=== PATIENT | male | born 1940 | race Caucasian/White ===

== ENCOUNTER 2016-10-29 13:18 | Inpatient (IN) | payer OTHER ==
[2016-10-29] VITALS (14 sets, daily range): BP systolic 135–200; BP diastolic 73–101; PULSE 89–115; TEMP 36.2–37.2; O2SAT 95–100; BMI 32.6
[~2016-10-29] VITALS: Ht 175.3 cm; Wt 101.6 kg
[2016-10-29 14:59] LABS: HEMATOCRIT 20.1 % (42-52); MEAN CELL VOLUME 86.6 fL (80-100); MEAN CORPUSCULAR HEMOGLOBIN 28.9 pg (25-34); MEAN CORPUSCULAR HGB CONC 33.3 g/dl (32-36); MEAN PLATELET VOLUME 10.1 fL (7.4-10.4); PLATELET COUNT 161 K/uL (130-400); RED BLOOD COUNT 2.32 M/uL (4.7-6.1); WHITE BLOOD COUNT 3.51 K/uL (4.8-10.8)
[2016-10-29 15:05] LABS: PARTIAL THROMBOPLASTIN RATIO 1.1; PROTHROMBIN TIME (PATIENT) 11.1 SECONDS (9.0-12.0)
--- NOTE | 2016-10-29 15:05 | DIAGNOSTIC IMAGING REPORT ---
CHEST ONE VIEW PORTABLE CLINICAL HISTORY: Shortness of breath, hematuria. COMPARISON STUDY: No previous studies for comparison. FINDINGS: The cardiac and mediastinal contours are normal. There is no evidence of focal pulmonary consolidation. There is no evidence of failure. No pleural effusions are visualized.[ IMPRESSION: No active disease in the chest. Electronically signed by: Idris Ulloa M.D. 10/29/2016 3:04 PM Dictated Date/Time: 10/29/2016 3:04 PM
[2016-10-29 15:20] LABS: ALB/GLOB RATIO 1.1 (0.9-2); ALT/SGPT 21 U/L (12-78); AST/SGOT 17 U/L (15-37); CALCIUM 7.3 mg/dl (8.5-10.1); CARBON DIOXIDE 6 mmol/L (21-32); CHLORIDE 105 mmol/L (98-107); GLUCOSE 100 mg/dl (70-99); POTASSIUM 5.5 mmol/L (3.5-5.1); SODIUM 135 mmol/L (136-145)
[2016-10-29 15:23] LABS: BASO % 0.3 %; BASO ABS # 0.01 K/uL (0-0.2); COMPLETE YES; ECHINOCYTES 1+; EOS % 0.6 %; IG% 0.6 %; LYMPH % 15.7 %; LYMPH ABS # 0.55 K/uL (1.2-3.4); NEUT % 78.8 %; OVALOCYTES 2+
[2016-10-29 15:29] LABS: ALKALINE PHOSPHATASE 55 U/L (45-117); BLOOD UREA NITROGEN 192 mg/dl (7-18); BUN/CREATININE RATIO 10.7 (10-20); MAGNESIUM 1.8 mg/dl (1.8-2.4)
[2016-10-29] MEDS ORDERED: ALLBUTEROL INH (15:30)
--- NOTE | 2016-10-29 15:57 | EMERGENCY ROOM VISIT NOTE ---
History Report prepared by Jud: Evan Hernandez Under the Supervision of: Dr. Armando De La Cruz M.D. First contact with patient: 14:37 Chief Complaint: SHORTNESS OF BREATH Stated Complaint: SOB, WEAK, NOT EATING, INCREASED BLOOD IN URINE Nursing Triage Summary: Pt has had lack of appetite, feeling short of breath more on exertion over the past few days. Has not seen a phys in years per the brother, pt did not want to come initially to the ER. Also complains of pain bilateral legs - feeling heavy. pt admits that his nose bleeds every once in a while for no reason per pt History of Present Illness The patient is a 76 year old male who presents to the Emergency Room with complaints of severe and worsening shortness of breath starting a few days ago. He has worsening difficulty breathing with exertion. He has symptom relief with rest. He also complains of chills and weakness. He is unsure about a fever. He notes nose bleeds occurring for the past few days. He has been having blood in urine for the past month. He denies any burning with urination. He reports diarrhea occurring for the past few months. He reports a loss of appetite. As per family, he has been losing weight. The patient denies cough, chest pain, nausea, vomiting, or any other complaints. He denies any history of lung disease , myocardial infarction, or history of blood transfusion. He denies any blood thinners. Source of History: patient Onset: a few days ago Position: other (global) Quality: other (shortness of breath) Timing: worsening Modifying Factors (Worsening): exertion Modifying Factors (Relieving): rest Associated Symptoms: + chills, + diarrhea, + weakness, No chest pain, No cough, No nausea, No vomiting Review of Systems See HPI for pertinent positives & negatives. A total of 10 systems reviewed and were otherwise negative. Past Medical & Surgical Medical Problems: (1) No Known Active Medical Problems Family History Patient reports no known family medical history. Social History Smoking Status: Never Smoker Housing Status: lives with family Occupation Status: retired Current/Historical Medications Scheduled [Allbuterol Neb], 1 DOSE INH TODAY Allergies Coded Allergies: No Known Allergies (Unverified , 10/29/16) Physical Exam Vital Signs Date Time Temp Pulse Resp B/P Pulse Ox O2 Delivery O2 Flow Rate FiO2 10/29/16 18:08 36.4 93 16 184/82 97 10/29/16 17:52 36.5 93 18 166/80 99 10/29/16 17:30 85 18 173/88 99 Room Air 10/29/16 15:54 35.6 84 20 169/111 99 Room Air 10/29/16 15:24 85 18 133/80 99 Room Air 10/29/16 15:06 81 10/29/16 14:32 100 Room Air 10/29/16 14:31 100 Room Air 10/29/16 14:24 35.0 85 20 132/71 100 Room Air 10/29/16 13:41 97 Room Air 10/29/16 13:33 119 24 108/66 97 Room Air Physical Exam GENERAL: Patient is in no acute distress. HEENT: No acute trauma, normocephalic atraumatic, mucous membranes moist, no nasal congestion, no scleral icterus. NECK: No stridor, no adenopathy, no meningismus, trachea is midline. LUNGS: Clear to auscultation bilaterally, no wheeze, no rhonchi, breath sounds equal. HEART: Without murmurs gallops or rubs, regular rate and rhythm. ABDOMEN: Soft, nontender, bowel sounds positive, no hernias, no peritonitis. Possible fullness in the area of the bladder, nontender. EXTREMITIES: No cyanosis or edema, full range of motion of all the joints without pain or difficulty, no signs for acute trauma. NEUROLOGIC: Oriented x 3, no acute motor or sensory deficits, no focal weakness. SKIN: Pale. No rash, no jaundice, no diaphoresis. Medical Decision & Procedures ER Provider Diagnostic Interpretation: X ray results and stated below per my interpretation and radiologist interpretation. US results and stated below per my review and radiologist interpretation: RENAL ULTRASOUND HISTORY: renal failure ? Obstructing mass in bladder COMPARISON: None. FINDINGS: Right kidney: 22.3 cm in length. Multiple large cystic areas which appear to communicate suggestive of severe hydronephrosis. This favors a congenital UPJ type obstruction as the ureter does not appear to be dilated. Severe cortical atrophy/thinning. Therefore, this favors chronic hydronephrosis. Left kidney: 23.4 cm in length. Multiple large cystic areas which appear to communicate suggestive of severe hydronephrosis. This favors a congenital UPJ type obstruction as the ureter does not appear to be dilated. Severe cortical atrophy/thinning. Therefore, this favors chronic hydronephrosis. Bladder: A 1.8 cm stone. There is a 4.2 x 3.5 x 3.5 cm masslike area within the bladder. However, this could be due to protrusion of the enlarged prostate gland. IMPRESSION: 1. Multiple large cystic areas within the enlarged kidneys which appear to communicate. Therefore, this favors severe hydronephrosis in the setting of a UPJ type obstruction. There is marked atrophy/thinning of the renal parenchyma suggesting a chronic process. 2. A 4.2 x 3.5 x 3.5 cm masslike area within the bladder. However, this could be due to protrusion of the enlarged prostate gland. Cystoscopy is recommended for further evaluation. 3. A 1.8 cm bladder stone. Electronically signed by: Yayo Baird M.D. 10/29/2016 4:23 PM Dictated Date/Time: 10/29/2016 4:19 PM CHEST ONE VIEW PORTABLE CLINICAL HISTORY: Shortness of breath, hematuria. COMPARISON STUDY: No previous studies for comparison. FINDINGS: The cardiac and mediastinal contours are normal. There is no evidence of focal pulmonary consolidation. There is no evidence of failure. No pleural effusions are visualized.[ IMPRESSION: No active disease in the chest. Electronically signed by: Idris Ulloa M.D. 10/29/2016 3:04 PM Dictated Date/Time: 10/29/2016 3:04 PM Laboratory Results 10/29/16 14:30 Red Blood Count 2.32, Mean Corpuscular Volume 86.6, Mean Corpuscular Hemoglobin 28.9, Mean Corpuscular Hemoglobin Concent 33.3, Mean Platelet Volume 10.1, Neutrophils (%) (Auto) 78.8, Lymphocytes (%) (Auto) 15.7, Monocytes (%) (Auto) 4.0, Eosinophils (%) (Auto) 0.6, Basophils (%) (Auto) 0.3, Neutrophils # (Auto) 2.77, Lymphocytes # (Auto) 0.55, Monocytes # (Auto) 0.14, Eosinophils # (Auto) 0.02, Basophils # (Auto) 0.01 10/29/16 14:30 Test 10/29/16 14:30 10/29/16 14:35 10/29/16 16:35 White Blood Count 3.51 K/uL (4.8-10.8) Red Blood Count 2.32 M/uL (4.7-6.1) Hemoglobin 6.7 g/dL (14.0-18.0) Hematocrit 20.1 % (42-52) Mean Corpuscular Volume 86.6 fL (80-100) Mean Corpuscular Hemoglobin 28.9 pg (25-34) Mean Corpuscular Hemoglobin Concent 33.3 g/dl (32-36) Platelet Count 161 K/uL (130-400) Mean Platelet Volume 10.1 fL (7.4-10.4) Neutrophils (%) (Auto) 78.8 % Lymphocytes (%) (Auto) 15.7 % Monocytes (%) (Auto) 4.0 % Eosinophils (%) (Auto) 0.6 % Basophils (%) (Auto) 0.3 % Neutrophils # (Auto) 2.77 K/uL (1.4-6.5) Lymphocytes # (Auto) 0.55 K/uL (1.2-3.4) Monocytes # (Auto) 0.14 K/uL (0.11-0.59) Eosinophils # (Auto) 0.02 K/uL (0-0.5) Basophils # (Auto) 0.01 K/uL (0-0.2) RDW Standard Deviation 44.8 fL (36.4-46.3) RDW Coefficient of Variation 14.1 % (11.5-14.5) Immature Granulocyte % (Auto) 0.6 % Immature Granulocyte # (Auto) 0.02 K/uL (0.00-0.02) Ovalocytes 2+ Echinocytes 1+ Prothrombin Time 11.1 SECONDS (9.0-12.0) Prothromb Time International Ratio 1.0 (0.9-1.1) Activated Partial Thromboplast Time 29.7 SECONDS (21.0-31.0) Partial Thromboplastin Ratio 1.1 Anion Gap 24.0 mmol/L (3-11) Estimated GFR () 2.6 Estimated GFR (Non- 2.2 BUN/Creatinine Ratio 10.7 (10-20) Calcium Level 7.3 mg/dl (8.5-10.1) Magnesium Level 1.8 mg/dl (1.8-2.4) Total Bilirubin 0.4 mg/dl (0.2-1) Aspartate Amino Transf (AST/SGOT) 17 U/L (15-37) Alanine Aminotransferase (ALT/SGPT) 21 U/L (12-78) Alkaline Phosphatase 55 U/L (45-117) Total Protein 7.8 gm/dl (6.4-8.2) Albumin 4.0 gm/dl (3.4-5.0) Globulin 3.8 gm/dl (2.5-4.0) Albumin/Globulin Ratio 1.1 (0.9-2) Thyroid Stimulating Hormone (TSH) 3.670 uIu/ml (0.300-4.500) Free Thyroxine 0.84 ng/dl (0.80-1.60) Bedside Troponin I 0.030 ng/ml (0-0.045) Urine Color YELLOW Urine Appearance CLEAR (CLEAR) Urine pH 6.0 (4.5-7.5) Urine Specific [place] 1.009 (1.000-1.030) Urine Protein 1+ (NEG) Urine Glucose (UA) TRACE (NEG) Urine Ketones NEG (NEG) Urine Occult Blood 2+ (NEG) Urine Nitrite NEG (NEG) Urine Bilirubin NEG (NEG) Urine Urobilinogen NEG (NEG) Urine Leukocyte Esterase TRACE (NEG) Urine WBC (Auto) 1-5 /hpf (0-5) Urine RBC (Auto) 10-30 /hpf (0-4) Urine Hyaline Casts (Auto) 1-5 /lpf (0-5) Urine Epithelial Cells (Auto) >30 /lpf (0-5) Urine Bacteria (Auto) 1+ (NEG) Urine Renal Epithelial Cells /lpf (0-5) Laboratory results reviewed by me. ECG Indication: SOB/dyspnea Rate (beats per minute): 86 Rhythm: sinus rhythm Findings: no acute ischemic change, no ectopy ED Course 1437: The patient was evaluated in room B02. A complete history and physical exam was performed. 1507: I spoke with Dr. Avila, from [facility]. 1541: Upon reexamination the patient is resting comfortably. I discussed results and treatment plan with the patient. He verbalizes agreement and understanding. The patient will be evaluated for further management. Medical Decision Differential diagnosis includes but is not limited to anemia, renal or bladder malignancy, UTI, abdominal malignancy, electrolyte imbalance, cardiac ischemia, thyroid disorder, UTI. There is no leukocytosis. The patient is markedly anemic with a hemoglobin at around 6. I think the low hemoglobin value explains his weakness and shortness of breath. Renal panel testing shows acute renal failure with an acidosis, CO2 was 6. There was no evidence for hepatitis. Urinalysis shows hematuria with a possible infection, urine culture is pending. Blood cultures are pending. Chest film does not show pneumonia or CHF. EKG showed a sinus rhythm with a first-degree AV block, no acute ischemia. Cardiac enzyme testing times one is not consistent with acute cardiac injury. There was no coagulopathy. The patient was in a euthyroid state. Renal ultrasound shows severe hydronephrosis, some of which was thought chronic. There was a potential mass seen in the bladder. The patient had the deepti hugger applied because of the hypothermia. He was watched on the classroom monitor. The patient presents with weakness, fatigue and bloody urine. He is in acute renal failure and is acidotic. He has abnormal kidney findings and bladder findings by ultrasound. He is markedly anemic. Blood was ordered for transfusion but is not yet ready to be given. The patient was aggressively managed. Despite all his findings, his vital signs are relatively stable. I do think further care in the hospital is warranted. I spoke with the patient and case management. The on-call hospitalist was consulted. Consults Time Called: 1506 Consulting Physician: Dr. Avila, from [facility] Returned Call: [address] Avila, from [facility]. Impression Primary Impression: Weakness Additional Impressions: Anemia Hematuria Hypothermia Acute renal failure Acidosis Critical Care I have personally spent greater than 35 minutes of critical care time in the direct management of this patient. This includes bedside care, interpretation of diagnostic studies, and testing, discussion with consultants, patient, and family members, and other required patient management activities. This 35 minutes is in excess of all separately billable procedures. Scribe Attestation The scribe's documentation has been prepared under my direction and personally reviewed by me in its entirety. I confirm that the note above accurately reflects all work, treatment, procedures, and medical decision making performed by me. Departure Information Dispostion Being Evaluated By Hospitalist Referrals No Doctor, Assigned (PCP) Patient Instructions My [facility] Problem Qualifiers
[2016-10-29] MEDS ORDERED: ACETAMINOPHEN 325 MG TAB PO PRN (16:00)
--- NOTE | 2016-10-29 16:25 | DIAGNOSTIC IMAGING REPORT ---
RENAL ULTRASOUND HISTORY: renal failure ? Obstructing mass in bladder COMPARISON: None. FINDINGS: Right kidney: 22.3 cm in length. Multiple large cystic areas which appear to communicate suggestive of severe hydronephrosis. This favors a congenital UPJ type obstruction as the ureter does not appear to be dilated. Severe cortical atrophy/thinning. Therefore, this favors chronic hydronephrosis. Left kidney: 23.4 cm in length. Multiple large cystic areas which appear to communicate suggestive of severe hydronephrosis. This favors a congenital UPJ type obstruction as the ureter does not appear to be dilated. Severe cortical atrophy/thinning. Therefore, this favors chronic hydronephrosis. Bladder: A 1.8 cm stone. There is a 4.2 x 3.5 x 3.5 cm masslike area within the bladder. However, this could be due to protrusion of the enlarged prostate gland. IMPRESSION: 1. Multiple large cystic areas within the enlarged kidneys which appear to communicate. Therefore, this favors severe hydronephrosis in the setting of a UPJ type obstruction. There is marked atrophy/thinning of the renal parenchyma suggesting a chronic process. 2. A 4.2 x 3.5 x 3.5 cm masslike area within the bladder. However, this could be due to protrusion of the enlarged prostate gland. Cystoscopy is recommended for further evaluation. 3. A 1.8 cm bladder stone. Electronically signed by: Yayo Baird M.D. 10/29/2016 4:23 PM Dictated Date/Time: 10/29/2016 4:19 PM
--- NOTE | 2016-10-29 16:51 | History and Physical ---
History & Physical Date & Time of Service: Oct 29, 2016 at 16:10 Chief Complaint: Sob, Weak, Not Eating, Increased Blood In Urine Primary Care Physician: No Doctor, Assigned History of Present Illness Source: patient, family This patient is a pleasant 76-year-old male that presents to emergency department with complaints of weakness, dyspnea on exertion, lightheadedness and hematuria. He notes that the symptoms have been going on for quite some time-probably 6 months. The patient has not seen a doctor in 10 years. He reports a history of problems with urination. He had some kind of a procedure done in 2006. He denies any chest pain or heart palpitations. He has had a poor appetite with some nausea and intermittent diarrhea that has also been going on for the last several months. He denies any clots in the urine. He does note that it looks like complete blood and is not just tinged with red/ pink. He does not complain of any flank pain, fever or chills. He has had an intermittent abdominal pain in the left lower abdomen over the last several months. Pertinent labs in the emergency department note a hemoglobin of 6.7. Creatinine of 18. Potassium 5.5. Bicarbonate of 6 with an anion gap of 24. Past Medical/Surgical History had some kind of urologic procedure in 2006 for what sounds to be obstructive uropathy denies any known chronic medical history Family History Patient reports no known family medical history. 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) Allergies Coded Allergies: No Known Allergies (Unverified , 10/29/16) Home Medications Scheduled [Allbuterol Neb], 1 DOSE INH TODAY Review of Systems 10 system review performed and negative unless noted in HPI or below Physical Exam Vital Signs Date Time Temp Pulse Resp B/P Pulse Ox O2 Delivery O2 Flow Rate FiO2 10/29/16 15:24 85 18 133/80 99 Room Air 10/29/16 15:06 81 10/29/16 14:32 100 Room Air 10/29/16 14:31 100 Room Air 10/29/16 14:24 35.0 85 20 132/71 100 Room Air 10/29/16 13:41 97 Room Air 10/29/16 13:33 119 24 108/66 97 Room Air VITALS: Vitals are noted on the nurse's note and reviewed by myself. Vital signs stable. GENERAL: 76 y/o male, weak and pale SKIN: The skin was pale and dry HEAD: Normocephalic atraumatic. EYES: Pupils equal round and reactive to light and accommodation. Conjunctivae without injection, sclerae without icterus. Extraocular movements intact. MOUTH: Mucous membranes moist. NECK: No lymphadenopathy. No JVD. HEART: Regular rate and rhythm without murmurs gallops or rubs. LUNGS: Clear to auscultation bilaterally without wheezes, rales or rhonchi. No accessory muscle use. ABDOMEN: Positive bowel sounds x 4.Soft, nontender, without organomegaly. No guarding or rebound tenderness. MUSCULOSKELETAL: No erythema, or edema noted. No tenderness to palpation. Strength equal bilaterally. NEURO: Patient was alert and oriented to person place and time. Difficulty with finger to nose bilaterally. Mild tremor noted particularly in the right hand. Overall weakness noted. No focal weakness noted. Diagnostics Laboratory Results Results Past 24 Hours Test 10/29/16 14:30 10/29/16 14:35 Range/Units White Blood Count 3.51 4.8-10.8 K/uL Red Blood Count 2.32 4.7-6.1 M/uL Hemoglobin 6.7 14.0-18.0 g/dL Hematocrit 20.1 42-52 % Mean Corpuscular Volume 86.6 80-100 fL Mean Corpuscular Hemoglobin 28.9 25-34 pg Mean Corpuscular Hemoglobin Concent 33.3 32-36 g/dl Platelet Count 161 130-400 K/uL Mean Platelet Volume 10.1 7.4-10.4 fL Neutrophils (%) (Auto) 78.8 % Lymphocytes (%) (Auto) 15.7 % Monocytes (%) (Auto) 4.0 % Eosinophils (%) (Auto) 0.6 % Basophils (%) (Auto) 0.3 % Neutrophils # (Auto) 2.77 1.4-6.5 K/uL Lymphocytes # (Auto) 0.55 1.2-3.4 K/uL Monocytes # (Auto) 0.14 0.11-0.59 K/uL Eosinophils # (Auto) 0.02 0-0.5 K/uL Basophils # (Auto) 0.01 0-0.2 K/uL RDW Standard Deviation 44.8 36.4-46.3 fL RDW Coefficient of Variation 14.1 11.5-14.5 % Immature Granulocyte % (Auto) 0.6 % Immature Granulocyte # (Auto) 0.02 0.00-0.02 K/uL Ovalocytes 2+ Echinocytes 1+ Prothrombin Time 11.1 9.0-12.0 SECONDS Prothromb Time International Ratio 1.0 0.9-1.1 Activated Partial Thromboplast Time 29.7 21.0-31.0 SECONDS Partial Thromboplastin Ratio 1.1 Sodium Level 135 136-145 mmol/L Potassium Level 5.5 3.5-5.1 mmol/L Chloride Level 105 98-107 mmol/L Carbon Dioxide Level 6 21-32 mmol/L Anion Gap 24.0 3-11 mmol/L Blood Urea Nitrogen 192 7-18 mg/dl Creatinine 18.00 0.60-1.40 mg/dl Estimated GFR () 2.6 Estimated GFR (Non- 2.2 BUN/Creatinine Ratio 10.7 10-20 Random Glucose 100 70-99 mg/dl Calcium Level 7.3 8.5-10.1 mg/dl Magnesium Level 1.8 1.8-2.4 mg/dl Total Bilirubin 0.4 0.2-1 mg/dl Aspartate Amino Transf (AST/SGOT) 17 15-37 U/L Alanine Aminotransferase (ALT/SGPT) 21 12-78 U/L Alkaline Phosphatase 55 45-117 U/L Total Protein 7.8 6.4-8.2 gm/dl Albumin 4.0 3.4-5.0 gm/dl Globulin 3.8 2.5-4.0 gm/dl Albumin/Globulin Ratio 1.1 0.9-2 Thyroid Stimulating Hormone (TSH) 3.670 0.300-4.500 uIu/ml Free Thyroxine 0.84 0.80-1.60 ng/dl Bedside Troponin I 0.030 0-0.045 ng/ml Microbiology Results 10/29/16 Blood Culture, Received Pending 10/29/16 Blood Culture, Received Pending Diagnostic Radiology 10/29/16 14:30 Red Blood Count 2.32, Mean Corpuscular Volume 86.6, Mean Corpuscular Hemoglobin 28.9, Mean Corpuscular Hemoglobin Concent 33.3, Mean Platelet Volume 10.1, Neutrophils (%) (Auto) 78.8, Lymphocytes (%) (Auto) 15.7, Monocytes (%) (Auto) 4.0, Eosinophils (%) (Auto) 0.6, Basophils (%) (Auto) 0.3, Neutrophils # (Auto) 2.77, Lymphocytes # (Auto) 0.55, Monocytes # (Auto) 0.14, Eosinophils # (Auto) 0.02, Basophils # (Auto) 0.01 Test 10/29/16 14:30 10/29/16 14:35 10/29/16 16:35 White Blood Count 3.51 K/uL (4.8-10.8) Red Blood Count 2.32 M/uL (4.7-6.1) Hemoglobin 6.7 g/dL (14.0-18.0) Hematocrit 20.1 % (42-52) Mean Corpuscular Volume 86.6 fL (80-100) Mean Corpuscular Hemoglobin 28.9 pg (25-34) Mean Corpuscular Hemoglobin Concent 33.3 g/dl (32-36) Platelet Count 161 K/uL (130-400) Mean Platelet Volume 10.1 fL (7.4-10.4) Neutrophils (%) (Auto) 78.8 % Lymphocytes (%) (Auto) 15.7 % Monocytes (%) (Auto) 4.0 % Eosinophils (%) (Auto) 0.6 % Basophils (%) (Auto) 0.3 % Neutrophils # (Auto) 2.77 K/uL (1.4-6.5) Lymphocytes # (Auto) 0.55 K/uL (1.2-3.4) Monocytes # (Auto) 0.14 K/uL (0.11-0.59) Eosinophils # (Auto) 0.02 K/uL (0-0.5) Basophils # (Auto) 0.01 K/uL (0-0.2) RDW Standard Deviation 44.8 fL (36.4-46.3) RDW Coefficient of Variation 14.1 % (11.5-14.5) Immature Granulocyte % (Auto) 0.6 % Immature Granulocyte # (Auto) 0.02 K/uL (0.00-0.02) Ovalocytes 2+ Echinocytes 1+ Prothrombin Time 11.1 SECONDS (9.0-12.0) Prothromb Time International Ratio 1.0 (0.9-1.1) Activated Partial Thromboplast Time 29.7 SECONDS (21.0-31.0) Partial Thromboplastin Ratio 1.1 Anion Gap 24.0 mmol/L (3-11) Estimated GFR () 2.6 Estimated GFR (Non- 2.2 BUN/Creatinine Ratio 10.7 (10-20) Calcium Level 7.3 mg/dl (8.5-10.1) Magnesium Level 1.8 mg/dl (1.8-2.4) Total Bilirubin 0.4 mg/dl (0.2-1) Aspartate Amino Transf (AST/SGOT) 17 U/L (15-37) Alanine Aminotransferase (ALT/SGPT) 21 U/L (12-78) Alkaline Phosphatase 55 U/L (45-117) Total Protein 7.8 gm/dl (6.4-8.2) Albumin 4.0 gm/dl (3.4-5.0) Globulin 3.8 gm/dl (2.5-4.0) Albumin/Globulin Ratio 1.1 (0.9-2) Thyroid Stimulating Hormone (TSH) 3.670 uIu/ml (0.300-4.500) Free Thyroxine 0.84 ng/dl (0.80-1.60) Bedside Troponin I 0.030 ng/ml (0-0.045) Patient Name: SRIDEVI GARCIA Unit Number: [id number] Dictated: 10/29/161503 Transcribed: 10/29/161503 ARG Printed Date/Time: [~ rep prt dt]/[~ rep prt tm] [~ rep ct labl] - [~ rep ct ivnm] [facility] [place] [address] Dictated: 10/29/161503 Transcribed: 10/29/161503 ARG Printed Date/Time: [~ rep prt dt]/[~ rep prt tm] [~ rep ct labl] - [~ rep ct ivnm] Patient: SRIDEVI GARCIA Address1: [address] Rec: [id number] Address2: Acct ID: [id number] [facility] Zip: [place] [id number] Date: 1940 Sex: M Room/Bed: Ref Phy: No Doctor, Assigned SC: [place] Att Phy: Report #: [id number] Anne Marie Phy: No Doctor, Assigned Test: CXR1P Admit Phy: [employer] Machinist: SANDEE Interpreting Phy: Idris Ulloa M.D. Diagnosis: SOB, WEAK, NOT EATING, INCREASED BLOOD IN URINE Ordering Phy: No Doctor, Assigned Service Date: 10/29/16 Admit Date: 10/29/16 MNE: [id number] CONF: DICTATED BY: Idris Ulloa M.D.]] CC: Armando De La Cruz M.D. No Doctor, Assigned Endcc: [~ rep ct add3]] CHEST ONE VIEW PORTABLE CLINICAL HISTORY: Shortness of breath, hematuria. COMPARISON STUDY: No previous studies for comparison. FINDINGS: The cardiac and mediastinal contours are normal. There is no evidence of focal pulmonary consolidation. There is no evidence of failure. No pleural effusions are visualized.[ IMPRESSION: No active disease in the chest. Electronically signed by: Idris Ulloa M.D. 10/29/2016 3:04 PM Dictated Date/Time: 10/29/2016 3:04 PM The status of this report is Signed. Draft = Not yet reviewed or approved by Radiologist. Signed = Reviewed and approved by Radiologist. <AttendingPhy></AttendingPhy> <FamilyPhy>No Doctor, Assigned</FamilyPhy> < PrimaryPhy>No Doctor, Assigned</PrimaryPhy> <UnitNumber>[id number]</UnitNumber> <VisitNumber>[id number]</VisitNumber> <PatientName>SRIDEVI GARCIA</ PatientName> <DateOfBirth>1940</DateOfBirth> <Location>[facility]</Location> < ServiceDate>10/29/16</ServiceDate> <MNE>ESINDI</MNE> <OrderingPhy>No Doctor, Assigned</OrderingPhy> <OrderingPhyMNE>f rep ord dr schwartz</OrderingPhyMNE> < DictatingPhyMNE>f rep dict dr schwartz</DictatingPhyMNE> <CCListMNE>f rep ct lana</ CCListMNE> <AdmittingPhyMNE>f pt admit dr schwartz</AdmittingPhyMNE> <AttendingPhyMNE >f pt attend dr schwartz</AttendingPhyMNE> <ConsultingPhyMNE>f pt consult dr schwartz</ConsultingPhyMNE> <FamilyPhyMNE>f pt fam dr schwartz</FamilyPhyMNE> <OtherPhyMNE>f pt other dr schwartz</OtherPhyMNE> < PrimaryPhyMNE>f pt prim care dr schwartz</PrimaryPhyMNE> <ReferringPhyMNE>f pt referring dr schwartz</ReferringPhyMNE> EKG NSR 86 BPM 1st degree AV block Impression Assessment and Plan 76-year-old male presents emergency department with dyspnea on exertion, weakness and profound anemia. Found to be in acute renal failure, Metabolic acidosis with an gap of 24 and bicarb of 6 Acute renal failure-likely secondary to chronic obstructive uropathy (likely mass) and possibly a dehydration component. -Admit to medical floor -I will hold of on IV fluids at this point as I am concerned the pt will could go into CHF with the 2 u of p RBCs with minimal renal fxn. Monitor after transfusion. 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 Especially with also reported weight loss over the last several months -insert Burgos -urology consult Diarrhea -check c diff/stool cx -will hydrate if he tolerates blood DVT prophylaxis -chemical means contraindicated -TEDS, SCDs CODE STATUS -LEVEL V DO NO RESUSCITATE i personally examined pt and verified all tan points w A [facility] PAC vitals noted, nad, breathing unlabored, exam otherwise as above anemia due to chronic blood loss from urinary tract -transfuse, follow obstructive uropathy due to bladder mass w ARF and metabolic acidosis from above , hyperkalemia from above -follow up after transfusion -hold further fluids pending response to blood hyperkalemia -follow -no EKG changes DVT proph -pharmacologic contraindicated due to blood loss otherwise as above Level of Care Med/Surg Resuscitation Status FULL RESUSCITATION VTE Prophylaxis VTE Risk Assessment Done? Y/N: Yes Risk Level: Low Given or contraindicated: T.E.D. Stockings, SCD's, Contraindicated
[2016-10-29 16:57] LABS: URINE APPEARANCE CLEAR (CLEAR); URINE BILIRUBIN NEG (NEG); URINE COLOR YELLOW; URINE EPITHELIAL CELL AUTO >30 /lpf (0-5); URINE NITRITE NEG (NEG); URINE SPECIFIC GRAVITY 1.009 (1.000-1.030); UROBILINOGEN NEG (NEG)
[2016-10-29 17:01] LABS: MANUAL MICROSCOPIC REQUIRED? NO; REVIEW REQ? YES
[2016-10-29 17:13] LABS: ZZURINE CULT IF INDIC CATH YES
[2016-10-29] MEDS ORDERED: PNEUMOCOCCAL ADMINISTRATION CHARGE ONE (21:00)
[2016-10-29] MEDS ORDERED: INFLUENZA VIRUS QUAD VACCINE 0.5 ML SYR IM. ONE (21:00)
[2016-10-29] MEDS ORDERED: INFLUENZA ADMINISTRATION CHARGE ONE (21:00)
[2016-10-29] MEDS ORDERED: PNEUMOCOCCAL POLYSACCHARIDES 25 MCG/0.5 ML VIAL/SYR IM. ONE (21:00)
[2016-10-29] MEDS ORDERED: AMLODIPINE BESYLATE 5 MG TAB PO ONE (23:10)
[2016-10-30] VITALS (9 sets, daily range): BP systolic 83–168; BP diastolic 52–92; PULSE 91–104; TEMP 36.3–36.5; O2SAT 91–100
[2016-10-30] MEDS ORDERED: SODIUM CHLORIDE 0.9% 500ML 500 ML IV ONE ×2 (02:45→05:15)
[2016-10-30 03:51] LABS: BUN/CREATININE RATIO 10.7 (10-20); CALCIUM 7.1 mg/dl (8.5-10.1); POTASSIUM 5.3 mmol/L (3.5-5.1); PROSTATE SPECIFIC ANTIGEN 58.2 ng/ml (0.000-4.000)
[2016-10-30 03:52] LABS: BASO % 0.2 %; BASO ABS # 0.01 K/uL (0-0.2); COMPLETE YES; ECHINOCYTES 2+; EOS % 0.3 %; HEMATOCRIT 31.5 % (42-52); IG% 0.2 %; LYMPH % 7.4 %; LYMPH ABS # 0.48 K/uL (1.2-3.4); MEAN CELL VOLUME 86.5 fL (80-100); MEAN CORPUSCULAR HEMOGLOBIN 28.8 pg (25-34); MEAN CORPUSCULAR HGB CONC 33.3 g/dl (32-36); MEAN PLATELET VOLUME 11.5 fL (7.4-10.4); NEUT % 87.9 %; PLATELET COUNT 175 K/uL (130-400); POLYCHROMASIA 1+; RED BLOOD COUNT 3.64 M/uL (4.7-6.1); WHITE BLOOD COUNT 6.45 K/uL (4.8-10.8)
--- NOTE | 2016-10-30 04:45 | Progress Note ---
Progress Note Date of Service Oct 30, 2016. Progress Note I was paged at approximately 02:30. Patient was noted to going to the toilet, and was unsteady on his feet. Nurse notes that patient was unable to stand on his own weight and she had to slowly lower him to the ground. She notes that he was unconscious momentarily regained consciousness quickly. She notes he appears diaphoretic. I give the following instructions prior to my arrival: Obtain full set of vital signs, put the patient back into bed, and I would be up to see the patient momentarily I arrived at the to the bedside to assess the patient: SUBJECTIVE: Patient notes he is not in any pain at the moment. He feels weak and low energy. He denies chest pain or shortness of breath or palpitations. He is denying abdominal pain, nausea, vomiting. He is tolerating the Burgos. OBJECTIVE: Vital signs. Orthostatic vitals were obtained Vital Signs Label Value Date Time Blood Pressure Assessment 99/62 10/30/16 0241 Location Left Arm Position Sitting Respiratory Rate 24 10/30/16 0241 Pulse 96 10/30/161 Location Brachial Patient Temperature 36.3 C. L 10/30/16240 Temperature Source Axillary 10/30/16240 Bedside Pulse Oximetry 99 % 10/30/16 0241 Blood Pressure Assessment 138/80 10/30/168 Location Right Arm Source NIBP Position Supine Bedside Pulse Oximetry 100 % 10/30/168 Respiratory Rate 23 10/30/16 0248 Pulse 102 10/30/168 Location Brachial Item Value Date Time Oxygen Flow Rate 2.0 L/min 10/30/16 0241 Oxygen Flow Rate 2.0 L/min 10/30/16 0248 Gen. inspection: Patient is in mild distress, alert and oriented, answers question appropriately Cardiac: S1 and S2 with no added sounds or murmurs, rate occasionally greater than 100 and regular Respiratory: Vesicular breath sounds bilaterally, no audible wheezes or crackles : Burgos catheter draining clear sanguinous urine. No clot Item Value Date Time White Blood Count 6.45 K/uL 10/30/16 0305 Red Blood Count 3.64 M/uL L 10/30/16 030 Hemoglobin 10.5 g/dL L # 10/30/16 0305 Hematocrit 31.5 % L 10/30/16 030 Platelet Count 175 K/uL 10/30/16304 Sodium Level 139 mmol/L 10/30/16304 Potassium Level 5.3 mmol/L H 10/30/16304 Chloride Level 107 mmol/L 10/30/16304 Carbon Dioxide Level 5 mmol/L *L 10/30/16304 Anion Gap 26.0 mmol/L H 10/30/16 030 Blood Urea Nitrogen 192 mg/dl H 10/30/16 030 Creatinine 18.00 mg/dl *H 10/30/16 0305 Est Creatinine Clear Calc Drug Dose 4.1 ml/min 10/30/16304 Estimated GFR () 2.6 10/30/16304 Estimated GFR (Non- 2.2 10/30/16304 BUN/Creatinine Ratio 10.7 10/30/16304 Random Glucose 104 mg/dl H 10/30/16304 Lactic Acid Level 2.4 mmol/L *H 10/30/16304 Calcium Level 7.1 mg/dl L 10/30/16304 Prostate Specific Antigen 58.200 ng/ml H 10/30/16304 ASSESSMENT/PLAN: 76-year-old male, presenting with acute kidney injury likely secondary to obstructive uropathy. He had a syncopal episode with vital signs indicated orthostasis. He's been persistently hypothermic and was hypotensive on arrival. He is currently hypotensive when sitting/standing which would be consistent with volume depletion. I did auscultate his lungs after receiving packed red cells and he is clear from that standpoint so I do think he can tolerate more fluid though I would deliver this cautiously Reviewing his labs, his hemoglobin and hematocrit appear to have improved after PRBC transfusion which is encouraging. His white blood cell count is gone from 3 to 6. His creatinine function persists at 18. He continues to have low bicarbonate of 5 along with an elevated anion gap. His lactic acid is positive at 2.4 He does appear, somewhat unwell though he cannot pinpoint any symptoms that would localize a specific cause. His chest x-ray is negative for an acute process. No focal meningismus symptoms. A catheterized urine specimen does show trace leukocyte esterase, but there are increased epithelial cells so it may be a contaminated specimen. However with his persistently low temperatures , low-grade tachycardia, white blood cell count < 4 at presentation, I do wonder whether he may have an underlying urinary infection as part of his reason for hospitalization. As such I will start him on Rocephin 1 g IV daily to treat presumed UTI. Urine cultures are already pending at this time. I will defer to the day team to determine if antibiotic course needs to be continued. I will also administer 1 L normal saline gently over the course of the overnight and monitor closely for signs of fluid overload. He is producing urine through his catheter so I expect we will be able to diuresis if we need to offload fluid. I will continue to follow him through the overnight period and handed off to the day team.
[2016-10-30] MEDS: CEFTRIAXONE SOD INJ 1 GM in DEXTROSE 5% ADD-VANTAGE 50ML 50 ML IV SCH (05:22)
[2016-10-30 07:42] LABS: HEMATOCRIT 30.8 % (42-52); MEAN CELL VOLUME 83.7 fL (80-100); MEAN CORPUSCULAR HEMOGLOBIN 29.3 pg (25-34); MEAN CORPUSCULAR HGB CONC 35.1 g/dl (32-36); MEAN PLATELET VOLUME 11.2 fL (7.4-10.4); PLATELET COUNT 170 K/uL (130-400); RED BLOOD COUNT 3.68 M/uL (4.7-6.1); WHITE BLOOD COUNT 6.33 K/uL (4.8-10.8)
[2016-10-30 08:17] LABS: BASO % 0.2 %; BASO ABS # 0.01 K/uL (0-0.2); COMPLETE YES; ECHINOCYTES 2+; HYPERSEGMENTED POLYS 1+; IG% 0.2 %; LYMPH % 4.4 %; LYMPH ABS # 0.28 K/uL (1.2-3.4); MONO % 3.2 %; OVALOCYTES 1+; TOXIC GRANULATION 1+
[2016-10-30 08:49] LABS: BUN/CREATININE RATIO 10.8 (10-20); CALCIUM 7.2 mg/dl (8.5-10.1); PHOSPHORUS 9.4 mg/dl (2.5-4.9); POTASSIUM 5.8 mmol/L (3.5-5.1)
[2016-10-30] MEDS: ONDANSETRON INJ 2 MG/ML 2 ML VIAL IV PRN (08:57)
[2016-10-30] MEDS ORDERED: AMLODIPINE BESYLATE 5 MG TAB PO SCH (09:00)
[2016-10-30] MEDS ORDERED: SODIUM POLYST. SULF SUSP 15G/60ML PO STA (09:51)
[2016-10-30] MEDS ORDERED: CALCIUM CARBONATE 500 MG CHEWABLE PO PRN (10:00)
[2016-10-30 10:43] LABS: TOTAL IRON BINDING CAPACITY 177 mcg/dl (250-450)
--- NOTE | 2016-10-30 10:50 | Nephrology Consultation ---
Nephrology Consultation Date & Providers Date of Consultation: Oct 30, 2016. Primary Care Provider: No Doctor, Assigned Referring Provider: Reason for Consultation ESRD, hyperkalemia, anemia and anion gap metabolic acidosis History of Present Illness Javon is a 76 y o M with PMH significant for HTN presented to the ED yesterday with SOB, weakness, weight loss, anorexia and hematuria which has been progressing over last few months. Nephrology consult was requested for further management as patient was found to have end-stage renal disease, hyperkalemia, metabolic acidosis anemia. Electronic medical records including labs and imaging are reviewed in detail during patient's visit. Javon has history of hypertension and he has been on amlodipine for last several years but he has not been taking that as he was not following with a physician for last almost 10 years. Six months ago he started noticing hematuria which has been progressive. He lost almost 50 pounds over last 6 months, overall feeling weak and tired, appetite has been decreasing. He presented to the emergency room yesterday as he was having progressive shortness of breath, generalized weakness with ongoing hematuria. He had no known prior history of chronic kidney disease. On admission his lab showed BUN 192, creatinine 18, hyperkalemia and gap metabolic acidosis suggestive of end-stage renal disease. Urinalysis had trace proteinuria and hematuria. Renal ultrasound showed bilateral severe hydronephrosis, cortical atrophy and bladder tumor. His PSA was significantly elevated as well. hemoglobin was 6.7, received PRBC transfusion and hemoglobin improved to 10 and shortness of breath improved. his blood pressure has been stable, has been urinating normally and volume status seems acceptable. Has Burgos catheter and urine blood tinged. He is a former smoker and quit smoking many years ago. No family history of chronic kidney disease or end-stage renal disease. He recently moved to [facility] and currently lives with his brother. 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 Repeat lab this morning showed there was no improvement in renal function or electrolyte abnormality. He continues to feel nauseous and has significant anorexia and p.o. intake continues to be poor. Had a syncopal episode last night when he went to the bathroom but vital sign remained stable after that. Currently he feels tired, has some nausea but denies a in shortness of breath or chest pain. Allergies Coded Allergies: No Known Allergies (Unverified , 10/29/16) Inpatient Medications Current Inpatient Medications Medications (Trade) Dose Ordered Sig/Sonia Route Start Time Stop Time Status Last Admin Dose Admin Acetaminophen (Tylenol Tab) 650 mg Q4H PRN PO 10/29/16 16:00 11/28/16 15:59 Ondansetron HCl (Zofran Inj) 4 mg Q6H PRN IV 10/29/16 16:00 11/28/16 15:59 Amlodipine Besylate 5 mg 5 mg DAILY PO 10/30/16 09:00 11/29/16 08:59 10/30/16 07:53 5 MG Sodium Chloride 500 ml @ 100 mls/hr Q5H ONCE IV 10/30/16 05:15 10/30/16 10:14 10/30/16 05:22 100 MLS/HR Ceftriaxone Sodium/Dextrose (Rocephin Inj/ Dextrose Add-[place] 50ML) 50 ml @ 100 mls/hr Q24H IV 10/30/16 05:30 11/09/16 05:29 10/30/16 05:22 100 MLS/HR Family History Patient reports no known family medical history. 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 Pertinent positives are noted above. All other systems are negative. Physical Exam Date Time Temp Pulse Resp B/P Pulse Ox O2 Delivery O2 Flow Rate FiO2 10/30/16 07:31 36.5 98 16 130/73 100 Nasal Cannula 2.0 10/30/16 03:45 95 20 168/92 100 Nasal Cannula 2.0 10/30/16 03:15 100 22 162/78 100 Nasal Cannula 2.0 10/30/16 02:54 104 22 154/91 100 Nasal Cannula 2.0 10/30/16 02:48 102 23 138/80 100 Nasal Cannula 2.0 10/30/16 02:41 36.3 96 24 99/62 99 Nasal Cannula 2.0 10/30/16 02:33 104 25 83/52 91 Room Air 10/29/16 23:45 Room Air 10/29/16 23:32 36.5 96 18 200/101 100 Room Air 10/29/16 22:48 36.4 92 18 199/90 99 10/29/16 22:05 36.4 99 18 200/100 100 10/29/16 21:35 36.3 91 18 190/96 100 10/29/16 21:05 36.5 96 18 190/94 96 10/29/16 20:50 36.5 92 18 192/90 100 10/29/16 20:32 36.3 96 18 178/88 99 10/29/16 20:15 36.3 96 18 178/94 100 Room Air 10/29/16 19:37 36.3 89 18 190/87 100 10/29/16 19:00 36.3 91 18 192/87 100 Room Air 10/29/16 19:00 36.3 92 18 192/87 100 10/29/16 18:50 36.2 91 18 191/84 95 Room Air 10/29/16 18:30 36.2 91 18 191/84 99 10/29/16 18:08 36.4 93 16 184/82 97 10/29/16 17:52 36.5 93 18 166/80 99 10/29/16 17:30 85 18 173/88 99 Room Air 10/29/16 15:54 35.6 84 20 169/111 99 Room Air 10/29/16 15:24 85 18 133/80 99 Room Air 10/29/16 15:06 81 10/29/16 14:32 100 Room Air 10/29/16 14:31 100 Room Air 10/29/16 14:24 35.0 85 20 132/71 100 Room Air 10/29/16 13:41 97 Room Air 10/29/16 13:33 119 24 108/66 97 Room Air GENERAL: elderly male, AAA x 3, pleasant, pale, ill-appearing, not in any distress. HEENT: Atraumatic, normocephalic. NECK: Supple, no JVD, no carotid bruit appreciated. ENT: No sinus tenderness MOUTH and THROAT: Moist oral mucosa, no oral ulcer or pharyngeal erythema RESPIRATORY: Normal breathing efforts, no accessory muscle use, clear to auscultation bilaterally, no wheezes or rales. CARDIOVASCULAR: S1, S2 normal, rate rhythm regular. ABDOMEN: Soft, nontender, positive bowel sound. MUSCULOSKELETAL: No CVA tenderness. No joint swelling, erythema or tenderness. Normal range of motion. SKIN: No skin rash EXTREMITY: No lower extremity edema NEURO: No gross focal neurological deficit, speech fluent. PSYCHIATRY: Normal mood and judgment Laboratory Results Last 24 Hours Test 10/29/16 14:30 10/29/16 14:35 10/29/16 16:35 10/30/16 03:05 White Blood Count 3.51 K/uL 6.45 K/uL Red Blood Count 2.32 M/uL 3.64 M/uL Hemoglobin 6.7 g/dL 10.5 g/dL Hematocrit 20.1 % 31.5 % Mean Corpuscular Volume 86.6 fL 86.5 fL Mean Corpuscular Hemoglobin 28.9 pg 28.8 pg Mean Corpuscular Hemoglobin Concent 33.3 g/dl 33.3 g/dl Platelet Count 161 K/uL 175 K/uL Mean Platelet Volume 10.1 fL 11.5 fL Neutrophils (%) (Auto) 78.8 % 87.9 % Lymphocytes (%) (Auto) 15.7 % 7.4 % Monocytes (%) (Auto) 4.0 % 4.0 % Eosinophils (%) (Auto) 0.6 % 0.3 % Basophils (%) (Auto) 0.3 % 0.2 % Neutrophils # (Auto) 2.77 K/uL 5.67 K/uL Lymphocytes # (Auto) 0.55 K/uL 0.48 K/uL Monocytes # (Auto) 0.14 K/uL 0.26 K/uL Eosinophils # (Auto) 0.02 K/uL 0.02 K/uL Basophils # (Auto) 0.01 K/uL 0.01 K/uL RDW Standard Deviation 44.8 fL 45.0 fL RDW Coefficient of Variation 14.1 % 14.4 % Immature Granulocyte % (Auto) 0.6 % 0.2 % Immature Granulocyte # (Auto) 0.02 K/uL 0.01 K/uL Ovalocytes 2+ Echinocytes 1+ 2+ Prothrombin Time 11.1 SECONDS Prothromb Time International Ratio 1.0 Activated Partial Thromboplast Time 29.7 SECONDS Partial Thromboplastin Ratio 1.1 Sodium Level 135 mmol/L 139 mmol/L Potassium Level 5.5 mmol/L 5.3 mmol/L Chloride Level 105 mmol/L 107 mmol/L Carbon Dioxide Level 6 mmol/L 5 mmol/L Anion Gap 24.0 mmol/L 26.0 mmol/L Blood Urea Nitrogen 192 mg/dl 192 mg/dl Creatinine 18.00 mg/dl 18.00 mg/dl Estimated GFR () 2.6 2.6 Estimated GFR (Non- 2.2 2.2 BUN/Creatinine Ratio 10.7 10.7 Random Glucose 100 mg/dl 104 mg/dl Calcium Level 7.3 mg/dl 7.1 mg/dl Magnesium Level 1.8 mg/dl Total Bilirubin 0.4 mg/dl Aspartate Amino Transf (AST/SGOT) 17 U/L Alanine Aminotransferase (ALT/SGPT) 21 U/L Alkaline Phosphatase 55 U/L Total Protein 7.8 gm/dl Albumin 4.0 gm/dl Globulin 3.8 gm/dl Albumin/Globulin Ratio 1.1 Thyroid Stimulating Hormone (TSH) 3.670 uIu/ml Free Thyroxine 0.84 ng/dl Bedside Troponin I 0.030 ng/ml Urine Color YELLOW Urine Appearance CLEAR Urine pH 6.0 Urine Specific [place] 1.009 Urine Protein 1+ Urine Glucose (UA) TRACE Urine Ketones NEG Urine Occult Blood 2+ Urine Nitrite NEG Urine Bilirubin NEG Urine Urobilinogen NEG Urine Leukocyte Esterase TRACE Urine WBC (Auto) 1-5 /hpf Urine RBC (Auto) 10-30 /hpf Urine Hyaline Casts (Auto) 1-5 /lpf Urine Epithelial Cells (Auto) >30 /lpf Urine Bacteria (Auto) 1+ Urine Renal Epithelial Cells /lpf Polychromasia 1+ Est Creatinine Clear Calc Drug Dose 4.1 ml/min Lactic Acid Level 2.4 mmol/L Prostate Specific Antigen 58.200 ng/ml Test 10/30/16 07:07 10/30/16 07:09 White Blood Count 6.33 K/uL Red Blood Count 3.68 M/uL Hemoglobin 10.8 g/dL Hematocrit 30.8 % Mean Corpuscular Volume 83.7 fL Mean Corpuscular Hemoglobin 29.3 pg Mean Corpuscular Hemoglobin Concent 35.1 g/dl Platelet Count 170 K/uL Mean Platelet Volume 11.2 fL Neutrophils (%) (Auto) 92.0 % Lymphocytes (%) (Auto) 4.4 % Monocytes (%) (Auto) 3.2 % Eosinophils (%) (Auto) 0.0 % Basophils (%) (Auto) 0.2 % Neutrophils # (Auto) 5.83 K/uL Lymphocytes # (Auto) 0.28 K/uL Monocytes # (Auto) 0.20 K/uL Eosinophils # (Auto) 0.00 K/uL Basophils # (Auto) 0.01 K/uL RDW Standard Deviation 44.8 fL RDW Coefficient of Variation 14.5 % Immature Granulocyte % (Auto) 0.2 % Immature Granulocyte # (Auto) 0.01 K/uL Hypersegmented Polys 1+ Toxic Granulation 1+ Ovalocytes 1+ Echinocytes 2+ 25-Hydroxy Vitamin D Total 7.0 ng/ml Procalcitonin 0.11 ng/mL Impression (1) ESRD needing dialysis (2) Hyperkalemia, diminished renal excretion (3) Metabolic acidosis with increased anion gap and reduced excretion of inorganic acids (4) Secondary hyperparathyroidism of renal origin (5) Anemia (6) Hematuria (7) Vitamin D deficiency Javon is a 76-year-old gentlemen presented to the hospital with 6 months history of hematuria, progressive weight loss, recent worsening shortness of breath, anorexia nausea. On admission he was found to be anemic with hemoglobin 6.7, renal impairment with creatinine 18 and BUN 192. No prior history of chronic kidney disease. Other workup showed hyperkalemia and significant gap metabolic acidosis, hyperphosphatemia, low vitamin-D. Renal ultrasound showed bilateral severe hydronephrosis with significant cortical atrophy and bladder mass. He has been uremic seems to be for long time as indicated by significant weight loss, anorexia, nausea and generalized weakness. All lab and imaging study is suggestive of end stage renal disease secondary to obstructive uropathy for long time. No history of diabetes or coronary artery disease. History of hypertension but has not been taking any medications were following with any physician for 10 years. Currently blood pressure slightly elevated, on amlodipine 5 milligrams. Recommendations --Discussed all the findings and assessment in detail with the patient. Explained that due to prolong obstructive uropathy, it seems that he has reached end-stage renal disease and will require dialysis immediately to manage his uremic symptoms as well as significant electrolyte abnormality. Patient verbalized understanding and agreed to start on dialysis. --will keep NPO over night, discussed with vascular surgery, will have tunnel dialysis catheter and evaluation for AV fistula tomorrow and plan to start him on 1st dialysis tomorrow --Kayexalate 30 gram p.o. x1 dose now --start on oral sodium bicarb 650 milligram 2 tabs twice a day and once we start on dialysis will take him off overall bicarb --Start on ergo calciferol 89560 units weekly for 12 weeks --Tums 1 tabs with each male as a phosphate binder --Start calcitriol 0.25 micrograms orally 3 times weekly --Check PTH, renal profile and acute hepatitis profile -- consult social service for outpatient dialysis arrangement -- continue on renal diet --Patient is waiting on evaluation by Urology for further management of severe hydronephrosis, bladder mass and elevated PSA Thank you for allowing me to participate in your patient's care. It was a pleasure to see Bill This chart was completed utilizing [employer] Speech and voice recognition software. Grammatical errors, random word insertions, pronoun errors and incomplete sentences are occasional consequences of this system. Any questions or concerns about the content, text or information contained within the body of this dictation should be addressed directly to the physician for clarification.
--- NOTE | 2016-10-30 11:06 | DIAGNOSTIC IMAGING REPORT ---
ABDOMEN AND PELVIS CT WITHOUT CONTRAST CT DOSE: 967.94 mGy.cm HISTORY: Renal cysts. Renal failure. bilateral renal cysts, ARF, gross hematuria, BPH TECHNIQUE: Multiaxial CT images of the abdomen and pelvis were performed without contrast. COMPARISON STUDY: None. FINDINGS: The lung bases are clear. Liver spleen and pancreas appear unremarkable. Gallbladder is negative for distention. Kidneys demonstrate relatively large bilateral renal cysts combine with but appears to be long-standing bilateral hydroureteronephrosis. Both ureters are distended to the juncture with the bladder. There is a large bladder calculus measuring 1.6 cm. A Burgos catheter is in position. Prostate is enlarged. Diameter of the renal pelves and associated parapelvic cysts are 11.3 cm on the right and 11.2 cm on the left. Bowel pattern is nonobstructive. There is no free fluid within the pelvic cul-de-sac. There is moderate bladder wall thickening components of which are related to the collapsed bladder state post Burgos placement. IMPRESSION: 1. Marked bilateral hydroureteronephrosis with superimposed renal cysts bilaterally. 2. Considerable cortical cortical thinning and substance loss of kidneys bilaterally. 3. Ureters are distended to the level of the ureterovesical junction. 4. Moderate bladder wall thickening. Moderate prostate enlargement. 5. All remaining components of the study are unremarkable. Electronically signed by: Justice Matias M.D. 10/30/2016 11:05 AM Dictated Date/Time: 10/30/2016 11:01 AM
[2016-10-30] MEDS ORDERED: SODIUM BICARBONATE 650 MG TAB PO ONE (11:15)
[2016-10-30] MEDS ORDERED: CALCITRIOL 0.25 MCG CAP PO ONE (11:30)
--- NOTE | 2016-10-30 13:50 | Urology Consultation ---
History General Date of Service: Oct 30, 2016. Chief Complaint: ARF, hematuria, elevated PSA Primary Care Physician: No Doctor, Assigned Pt seen a urologist before?: Yes (unknown who) If yes, why?: ? TURP vs TURBT History of Present Illness 76 yo male admitted for ARF with Cr of 18. The pt has not seen a physician in at least 10 years. Pt noted to have hematuria, and renal u/s on admission showing hydro and BPH with a large median lobe. CT scan obtained showing bilateral hydro as well. Alonso catheter placed for at least 1250ml of urine return today. He is pending dialysis fistula placement tomorrow to start dialysis. The pt was previously seen by my attending Dr. Elise earlier this morning. Pt reports a ? hx of TURBT vs TURP. Imaging Imaging: CT, Ultrasound Laboratory Last 24 Hours Test 10/29/16 14:30 10/29/16 14:35 10/29/16 16:35 10/30/16 03:05 White Blood Count 3.51 K/uL 6.45 K/uL Red Blood Count 2.32 M/uL 3.64 M/uL Hemoglobin 6.7 g/dL 10.5 g/dL Hematocrit 20.1 % 31.5 % Mean Corpuscular Volume 86.6 fL 86.5 fL Mean Corpuscular Hemoglobin 28.9 pg 28.8 pg Mean Corpuscular Hemoglobin Concent 33.3 g/dl 33.3 g/dl Platelet Count 161 K/uL 175 K/uL Mean Platelet Volume 10.1 fL 11.5 fL Neutrophils (%) (Auto) 78.8 % 87.9 % Lymphocytes (%) (Auto) 15.7 % 7.4 % Monocytes (%) (Auto) 4.0 % 4.0 % Eosinophils (%) (Auto) 0.6 % 0.3 % Basophils (%) (Auto) 0.3 % 0.2 % Neutrophils # (Auto) 2.77 K/uL 5.67 K/uL Lymphocytes # (Auto) 0.55 K/uL 0.48 K/uL Monocytes # (Auto) 0.14 K/uL 0.26 K/uL Eosinophils # (Auto) 0.02 K/uL 0.02 K/uL Basophils # (Auto) 0.01 K/uL 0.01 K/uL RDW Standard Deviation 44.8 fL 45.0 fL RDW Coefficient of Variation 14.1 % 14.4 % Immature Granulocyte % (Auto) 0.6 % 0.2 % Immature Granulocyte # (Auto) 0.02 K/uL 0.01 K/uL Ovalocytes 2+ Echinocytes 1+ 2+ Prothrombin Time 11.1 SECONDS Prothromb Time International Ratio 1.0 Activated Partial Thromboplast Time 29.7 SECONDS Partial Thromboplastin Ratio 1.1 Sodium Level 135 mmol/L 139 mmol/L Potassium Level 5.5 mmol/L 5.3 mmol/L Chloride Level 105 mmol/L 107 mmol/L Carbon Dioxide Level 6 mmol/L 5 mmol/L Anion Gap 24.0 mmol/L 26.0 mmol/L Blood Urea Nitrogen 192 mg/dl 192 mg/dl Creatinine 18.00 mg/dl 18.00 mg/dl Estimated GFR () 2.6 2.6 Estimated GFR (Non- 2.2 2.2 BUN/Creatinine Ratio 10.7 10.7 Random Glucose 100 mg/dl 104 mg/dl Calcium Level 7.3 mg/dl 7.1 mg/dl Magnesium Level 1.8 mg/dl Total Bilirubin 0.4 mg/dl Aspartate Amino Transf (AST/SGOT) 17 U/L Alanine Aminotransferase (ALT/SGPT) 21 U/L Alkaline Phosphatase 55 U/L Total Protein 7.8 gm/dl Albumin 4.0 gm/dl Globulin 3.8 gm/dl Albumin/Globulin Ratio 1.1 Thyroid Stimulating Hormone (TSH) 3.670 uIu/ml Free Thyroxine 0.84 ng/dl Bedside Troponin I 0.030 ng/ml Urine Color YELLOW Urine Appearance CLEAR Urine pH 6.0 Urine Specific [place] 1.009 Urine Protein 1+ Urine Glucose (UA) TRACE Urine Ketones NEG Urine Occult Blood 2+ Urine Nitrite NEG Urine Bilirubin NEG Urine Urobilinogen NEG Urine Leukocyte Esterase TRACE Urine WBC (Auto) 1-5 /hpf Urine RBC (Auto) 10-30 /hpf Urine Hyaline Casts (Auto) 1-5 /lpf Urine Epithelial Cells (Auto) >30 /lpf Urine Bacteria (Auto) 1+ Urine Renal Epithelial Cells /lpf Polychromasia 1+ Est Creatinine Clear Calc Drug Dose 4.1 ml/min Lactic Acid Level 2.4 mmol/L Prostate Specific Antigen 58.200 ng/ml Test 10/30/16 07:07 10/30/16 07:09 10/30/16 11:25 Sodium Level 138 mmol/L Potassium Level 5.8 mmol/L Chloride Level 108 mmol/L Carbon Dioxide Level 7 mmol/L Anion Gap 25.0 mmol/L Blood Urea Nitrogen 194 mg/dl Creatinine 18.00 mg/dl Est Creatinine Clear Calc Drug Dose 4.1 ml/min Estimated GFR () 2.6 Estimated GFR (Non- 2.2 BUN/Creatinine Ratio 10.8 Random Glucose 99 mg/dl Calcium Level 7.2 mg/dl Phosphorus Level 9.4 mg/dl White Blood Count 6.33 K/uL Red Blood Count 3.68 M/uL Hemoglobin 10.8 g/dL Hematocrit 30.8 % Mean Corpuscular Volume 83.7 fL Mean Corpuscular Hemoglobin 29.3 pg Mean Corpuscular Hemoglobin Concent 35.1 g/dl Platelet Count 170 K/uL Mean Platelet Volume 11.2 fL Neutrophils (%) (Auto) 92.0 % Lymphocytes (%) (Auto) 4.4 % Monocytes (%) (Auto) 3.2 % Eosinophils (%) (Auto) 0.0 % Basophils (%) (Auto) 0.2 % Neutrophils # (Auto) 5.83 K/uL Lymphocytes # (Auto) 0.28 K/uL Monocytes # (Auto) 0.20 K/uL Eosinophils # (Auto) 0.00 K/uL Basophils # (Auto) 0.01 K/uL RDW Standard Deviation 44.8 fL RDW Coefficient of Variation 14.5 % Immature Granulocyte % (Auto) 0.2 % Immature Granulocyte # (Auto) 0.01 K/uL Hypersegmented Polys 1+ Toxic Granulation 1+ Ovalocytes 1+ Echinocytes 2+ Iron Level 195 mcg/dl Total Iron Binding Capacity 177 mcg/dl Transferrin 153 mg/dl Transferrin % Saturation 91 % 25-Hydroxy Vitamin D Total 7.0 ng/ml Procalcitonin 0.11 ng/mL Parathyroid Hormone (Intact) 650.3 pg/mL Hepatitis B Surface Antigen NEG Hepatitis B Surface Antibody NEG Problem List Medical Problems: (1) Acidosis Status: Acute (2) Acute renal failure Status: Acute (3) Anemia Status: Acute (4) Hematuria Status: Acute (5) Hypothermia Status: Acute (6) Weakness Status: Acute Past History no pertinent history Past Surgical History: other (? TURP vs TURBT) Family History Patient reports no known family medical history. 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) Allergies Coded Allergies: No Known Allergies (Unverified , 10/29/16) Medications Home Medications: Home Meds and Scripts Medications Dose Route/Sig Max Daily Dose Days Date Category [Allbuterol Neb] 1 Dose INH TODAY 10/29/16 Reported Inpatient Medications: Current Inpatient Medications Medications (Trade) Dose Ordered Sig/Sonia Route Start Time Stop Time Status Last Admin Dose Admin Acetaminophen (Tylenol Tab) 650 mg Q4H PRN PO 10/29/16 16:00 11/28/16 15:59 Ondansetron HCl 4 mg 4 mg Q6H PRN IV 10/29/16 16:00 11/28/16 15:59 10/30/16 08:57 4 MG Ceftriaxone Sodium/Dextrose (Rocephin Inj/ Dextrose Add-[place] 50ML) 50 ml @ 100 mls/hr Q24H IV 10/30/16 05:30 11/09/16 05:29 10/30/16 05:22 100 MLS/HR Sodium Bicarbonate (Sodium Bicarbonate Tab) 1,350 mg BID PO 10/30/16 21:00 11/29/16 20:59 Calcium Carbonate (Tums Chew Tab) 500 mg ACHS PRN PO 10/30/16 10:00 11/29/16 09:59 Amlodipine Besylate (Norvasc Tab) 10 mg DAILY PO 10/31/16 09:00 11/30/16 08:59 Ergocalciferol (Vitamin D Cap) 50,000 interunit Th@2100 PO 10/30/16 21:00 01/15/17 21:01 Calcitriol 0.25 mcg 0.25 mcg TuThSa@0900 PO 11/01/16 09:00 12/01/16 08:59 Sodium Chloride (Nss 1000ml) 1,000 ml @ 80 mls/hr [id number] IV 10/30/16 12:15 11/29/16 12:14 Physical Exam Vital Signs: Vital Signs Past 12 Hours Date Time Temp Pulse Resp B/P Pulse Ox O2 Delivery O2 Flow Rate FiO2 10/30/16 09:31 Nasal Cannula 2.0 10/30/16 07:31 36.5 98 16 130/73 100 Nasal Cannula 2.0 10/30/16 03:45 95 20 168/92 100 Nasal Cannula 2.0 10/30/16 03:15 100 22 162/78 100 Nasal Cannula 2.0 10/30/16 02:54 104 22 154/91 100 Nasal Cannula 2.0 10/30/16 02:48 102 23 138/80 100 Nasal Cannula 2.0 10/30/16 02:41 36.3 96 24 99/62 99 Nasal Cannula 2.0 10/30/16 02:33 104 25 83/52 91 Room Air Physical Exam: General Appearance: + mild distress ENT: normal ENT inspection Neck: supple Respiratory/Chest: no respiratory distress Cardiovascular: regular rate, rhythm Extremities: normal inspection Neurologic/Psychiatric: alert Skin: normal color Additional Comments: prostate over 80 gms without significant nodules or induration urine bloody w/o clot Assessment & Plan Assessment & Plan A/P: ARF, bilateral hydro, incomplete bladder emptying, BPH, elevated PSA, bladder calculus AFVSS. Pt with multiple urologic issues at this time. JAQUAN performed by Dr. Elise this AM. Enlarged without obvious nodule. Notably large median lobe on renal u/s. Prostate cancer remains a diagnosis of exclusion at this time. Recommend leaving alonso catheter in place for now. Start dialysis per nephrology. Would consider bilateral stent placement for bilateral hydro once the pt has been stabilized and dialysis initiated. Would also perform a prostate bx and possible cystolithopaxy for bladder stone at that time. Consider TURP as outpatient vs inpatient. Thanks for the consult. Will continue to follow along with primary service. Spoke briefly with pt and he mentioned he had polyp removed in [place]. Not clear if he has bladder cancer. Psa of 59 makes prostate cancer dx of exclusion. Pt smoked and stopped at age 23. Hct stable overnite after transfusion . Agree with stability and cysto possible stent but wont be surprised if pt needs percutaneous drainage
[2016-10-30 14:09] LABS: HEPATITIS B AB NEG
[2016-10-30] MEDS: SODIUM CHLORIDE 0.9% 1000ML 1,000 ML IV SCH ×2 (14:29→23:51)
--- NOTE | 2016-10-30 14:46 | DIAGNOSTIC IMAGING REPORT ---
UPPER EXTREMITY VENOUS DOPPLER FOR MAPPING CLINICAL HISTORY: renal failure. Preop for fistula. COMPARISON STUDY: None. FINDINGS: The bilateral jugular, subclavian, axillary, veins are patent. The right cephalic vein at the level of the shoulder is hypoplastic measuring 1.5 mm in diameter. The cephalic vein at the proximal to mid upper arm is not identified. A short segment of the right cephalic vein at the elbow is identified measuring 1.3 mm in diameter. There is a similar-appearing hypoplastic left cephalic vein identified within the shoulder measuring 2.5 mm diameter. Remaining portions of the left cephalic vein are not identified within the left arm. The right basilic vein is patent and normal in diameter. The left basilic vein is patent and normal in diameter within the upper arm. The left basilic vein is not identified at the forearm.. IMPRESSION: 1. No evidence for upper extremity venous thrombosis. 2. The cephalic veins are hypoplastic and not well visualized. The visualized basilic veins are relatively normal in caliber. Electronically signed by: Yayo Baird M.D. 10/30/2016 2:45 PM Dictated Date/Time: 10/30/2016 2:38 PM
--- NOTE | 2016-10-30 15:32 | Surgery Consultation ---
Consultation Date of Service Oct 30, 2016. Chief Complaint End stage renal disease History of Present Illness The patient is a 76 year old male who developed renal failure. He is in need of dialysis at this time. Permcath is recommended Vitals Vital Signs Past 12 Hours Date Time Temp Pulse Resp B/P Pulse Ox O2 Delivery O2 Flow Rate FiO2 10/30/16 09:31 Nasal Cannula 2.0 10/30/16 07:31 36.5 98 16 130/73 100 Nasal Cannula 2.0 10/30/16 03:45 95 20 168/92 100 Nasal Cannula 2.0 Allergies Coded Allergies: No Known Allergies (Unverified , 10/29/16) Home Medications Scheduled [Allbuterol Neb], 1 DOSE INH TODAY Problem List Medical Problems: (1) ESRD needing dialysis (2) Hyperkalemia, diminished renal excretion (3) Metabolic acidosis with increased anion gap and reduced excretion of inorganic acids (4) Secondary hyperparathyroidism of renal origin (5) Vitamin D deficiency Surgical / Medical History Hx Cardiac Surgery: No Hx Abdominal Surgery: No Hx Cancer Surgery: No Hx Thoracic Surgery: No Hx Orthopedic: Yes (right arm- plates) Hx Urinary Tract Surgery: Yes (patient doesn't have much information) HX Other Surgery: No Family History Patient reports no known family medical history. Social History Smoking Status: Former Smoker Hx Tobacco Use In Past Year?: No Hx Alcohol Use - Type & Amnt: Yes (occasional) Hx Substance Use -Type & Amnt: No Review of Systems Constitutional: No chills, No diaphoresis, No fatigue, No fever, No malaise, No problem reported, No sweats, No weakness, No weight gain, No weight loss Respiratory: No DUGGAN, No PND, No cough, No cyanosis, No dyspnea, No hemoptysis, No orthopnea, No problem reported, No short of breath, No sputum production, No stridor, No wheezing Cardiovascular: No chest pain, No chest pressure, No chest tightness, No cyanosis, No diaphoresis, No edema, No intermittent claudication, No lightheadedness, No mumur, No orthopnea, No palpitations, No paroxysmal nocturnal dyspnea, No problem reported, No syncope Gastrointestinal: No abdominal pain, No anorexia, No appetite changes, No belching, No constipation, No diarrhea, No dysphagia, No flatulence, No food intolerance, No heartburn, No hematemesis, No hematochezia, No hemorrhoids, No indigestion, No nausea, No problem reported, No rectal bleeding, No stool changes, No vomiting Musculoskeletal: No back pain, No gout, No joint pain, No joint swelling, No muscle pain, No muscle stiffness, No muscle weakness, No neck pain, No problem reported Neurologic: No LOC, No dizziness, No headache, No lethargy, No memory loss, No numbness, No paresthesia, No pre-existing deficit, No problem reported, No seizures, No tics, No tingling, No tremors, No vertigo, No weakness Psychiatric: No alcohol abuse, No anxiety, No auditory hallucinations, No depression, No drug abuse, No homicidal ideation, No mood changes, No problem reported, No suicidal ideation, No visual hallucinations Physical Exam Constitutional: General Apperance: heathly-appearing, well-nourished, well-developed Level of Distress: NAD Ambulation: ambulating normally Psychiatric: Mental Status: active & alert, normal mood, normal affect Orientation: oriented except where noted, to time, to place, to person Lungs: Auscultation: breath sounds normal Cardiovascular: Heart Auscultation: RRR Peripheral Pulses: Radial Pulse: normal on the left, normal on the right Femoral Pulse: normal on the left, normal on the right Abdomen: Inspection & Palpation: soft Musculoskeletal: normal Extremities: Upper Right: no cyanosis, no edema, no varicosities, no palpable cord, no clubbing, no ulcers, no mottling Upper Left: no cyanosis, no edema, no palpable cord, no clubbing, no ulcers , no mottling Lower Right: no cyanosis, no edema, no varicosities, no palpable cord, no clubbing, no ulcers, no mottling Lower Left: no cyanosis, no edema, no varicosities, no palpable cord, no clubbing, no ulcers, no mottling Neurologic: Cranial Nerves: grossly intact Sensation: grossly intact Assessment and Plan Imp: End stage renal disease Plan: Recommend insertion of permcath in am tomorrow. This will be done at 0800. I have discussed the risks options and benefits of the procedure with the patient. The patient understands the risks options and benefits and agrees to the procedure.
--- NOTE | 2016-10-30 16:22 | Progress Note ---
Subjective Date of Service: Oct 30, 2016. Subjective pt is aloof and evasive about his health, I am not sure of his understanding of the seriousness of his situation Problem List Medical Problems: (1) Acidosis Status: Acute (2) Acute renal failure Status: Acute (3) Anemia Status: Acute (4) Hematuria Status: Acute (5) Hypothermia Status: Acute (6) Weakness Status: Acute Review of Systems Constitutional: + fatigue, + weakness Respiratory: No cough, No shortness of breath Cardiac: + edema, No chest pain Abdomen: + nausea, + pain, No constipation, No diarrhea, No vomiting Musculoskeletal: + joint pain, No muscle pain Male : + hematuria, No dysuria Objective Vital Signs Date Time Temp Pulse Resp B/P Pulse Ox O2 Delivery O2 Flow Rate FiO2 10/30/16 07:31 36.5 98 16 130/73 100 Nasal Cannula 2.0 10/30/16 03:45 95 20 168/92 100 Nasal Cannula 2.0 10/30/16 03:15 100 22 162/78 100 Nasal Cannula 2.0 10/30/16 02:54 104 22 154/91 100 Nasal Cannula 2.0 10/30/16 02:48 102 23 138/80 100 Nasal Cannula 2.0 10/30/16 02:41 36.3 96 24 99/62 99 Nasal Cannula 2.0 10/30/16 02:33 104 25 83/52 91 Room Air 10/29/16 23:45 Room Air 10/29/16 23:32 36.5 96 18 200/101 100 Room Air 10/29/16 22:48 36.4 92 18 199/90 99 10/29/16 22:05 36.4 99 18 200/100 100 10/29/16 21:35 36.3 91 18 190/96 100 10/29/16 21:05 36.5 96 18 190/94 96 10/29/16 20:50 36.5 92 18 192/90 100 10/29/16 20:32 36.3 96 18 178/88 99 10/29/16 20:15 36.3 96 18 178/94 100 Room Air 10/29/16 19:37 36.3 89 18 190/87 100 10/29/16 19:00 36.3 91 18 192/87 100 Room Air 10/29/16 19:00 36.3 92 18 192/87 100 10/29/16 18:50 36.2 91 18 191/84 95 Room Air 10/29/16 18:30 36.2 91 18 191/84 99 10/29/16 18:08 36.4 93 16 184/82 97 10/29/16 17:52 36.5 93 18 166/80 99 10/29/16 17:30 85 18 173/88 99 Room Air 10/29/16 15:54 35.6 84 20 169/111 99 Room Air 10/29/16 15:24 85 18 133/80 99 Room Air 10/29/16 15:06 81 10/29/16 14:32 100 Room Air 10/29/16 14:31 100 Room Air 10/29/16 14:24 35.0 85 20 132/71 100 Room Air 10/29/16 13:41 97 Room Air 10/29/16 13:33 119 24 108/66 97 Room Air Physical Exam General Appearance: WD/WN, + mild distress Neck: supple, no JVD Respiratory/Chest: chest non-tender, no respiratory distress, + decreased breath sounds Cardiovascular: regular rate, rhythm, no murmur Abdomen: non tender, soft, + distended Extremities: + pedal edema, + swelling Neurologic/Psychiatric: alert, oriented x 3 Laboratory Results Last 24 Hours Test 10/29/16 14:30 10/29/16 14:35 10/29/16 16:35 10/30/16 03:05 White Blood Count 3.51 K/uL 6.45 K/uL Red Blood Count 2.32 M/uL 3.64 M/uL Hemoglobin 6.7 g/dL 10.5 g/dL Hematocrit 20.1 % 31.5 % Mean Corpuscular Volume 86.6 fL 86.5 fL Mean Corpuscular Hemoglobin 28.9 pg 28.8 pg Mean Corpuscular Hemoglobin Concent 33.3 g/dl 33.3 g/dl Platelet Count 161 K/uL 175 K/uL Mean Platelet Volume 10.1 fL 11.5 fL Neutrophils (%) (Auto) 78.8 % 87.9 % Lymphocytes (%) (Auto) 15.7 % 7.4 % Monocytes (%) (Auto) 4.0 % 4.0 % Eosinophils (%) (Auto) 0.6 % 0.3 % Basophils (%) (Auto) 0.3 % 0.2 % Neutrophils # (Auto) 2.77 K/uL 5.67 K/uL Lymphocytes # (Auto) 0.55 K/uL 0.48 K/uL Monocytes # (Auto) 0.14 K/uL 0.26 K/uL Eosinophils # (Auto) 0.02 K/uL 0.02 K/uL Basophils # (Auto) 0.01 K/uL 0.01 K/uL RDW Standard Deviation 44.8 fL 45.0 fL RDW Coefficient of Variation 14.1 % 14.4 % Immature Granulocyte % (Auto) 0.6 % 0.2 % Immature Granulocyte # (Auto) 0.02 K/uL 0.01 K/uL Ovalocytes 2+ Echinocytes 1+ 2+ Prothrombin Time 11.1 SECONDS Prothromb Time International Ratio 1.0 Activated Partial Thromboplast Time 29.7 SECONDS Partial Thromboplastin Ratio 1.1 Sodium Level 135 mmol/L 139 mmol/L Potassium Level 5.5 mmol/L 5.3 mmol/L Chloride Level 105 mmol/L 107 mmol/L Carbon Dioxide Level 6 mmol/L 5 mmol/L Anion Gap 24.0 mmol/L 26.0 mmol/L Blood Urea Nitrogen 192 mg/dl 192 mg/dl Creatinine 18.00 mg/dl 18.00 mg/dl Estimated GFR () 2.6 2.6 Estimated GFR (Non- 2.2 2.2 BUN/Creatinine Ratio 10.7 10.7 Random Glucose 100 mg/dl 104 mg/dl Calcium Level 7.3 mg/dl 7.1 mg/dl Magnesium Level 1.8 mg/dl Total Bilirubin 0.4 mg/dl Aspartate Amino Transf (AST/SGOT) 17 U/L Alanine Aminotransferase (ALT/SGPT) 21 U/L Alkaline Phosphatase 55 U/L Total Protein 7.8 gm/dl Albumin 4.0 gm/dl Globulin 3.8 gm/dl Albumin/Globulin Ratio 1.1 Thyroid Stimulating Hormone (TSH) 3.670 uIu/ml Free Thyroxine 0.84 ng/dl Bedside Troponin I 0.030 ng/ml Urine Color YELLOW Urine Appearance CLEAR Urine pH 6.0 Urine Specific Rinard 1.009 Urine Protein 1+ Urine Glucose (UA) TRACE Urine Ketones NEG Urine Occult Blood 2+ Urine Nitrite NEG Urine Bilirubin NEG Urine Urobilinogen NEG Urine Leukocyte Esterase TRACE Urine WBC (Auto) 1-5 /hpf Urine RBC (Auto) 10-30 /hpf Urine Hyaline Casts (Auto) 1-5 /lpf Urine Epithelial Cells (Auto) >30 /lpf Urine Bacteria (Auto) 1+ Urine Renal Epithelial Cells /lpf Polychromasia 1+ Est Creatinine Clear Calc Drug Dose 4.1 ml/min Lactic Acid Level 2.4 mmol/L Prostate Specific Antigen 58.200 ng/ml Test 10/30/16 07:07 10/30/16 07:09 Sodium Level 138 mmol/L Potassium Level 5.8 mmol/L Chloride Level 108 mmol/L Carbon Dioxide Level 7 mmol/L Anion Gap 25.0 mmol/L Blood Urea Nitrogen 194 mg/dl Creatinine 18.00 mg/dl Est Creatinine Clear Calc Drug Dose 4.1 ml/min Estimated GFR () 2.6 Estimated GFR (Non- 2.2 BUN/Creatinine Ratio 10.8 Random Glucose 99 mg/dl Calcium Level 7.2 mg/dl Phosphorus Level 9.4 mg/dl White Blood Count 6.33 K/uL Red Blood Count 3.68 M/uL Hemoglobin 10.8 g/dL Hematocrit 30.8 % Mean Corpuscular Volume 83.7 fL Mean Corpuscular Hemoglobin 29.3 pg Mean Corpuscular Hemoglobin Concent 35.1 g/dl Platelet Count 170 K/uL Mean Platelet Volume 11.2 fL Neutrophils (%) (Auto) 92.0 % Lymphocytes (%) (Auto) 4.4 % Monocytes (%) (Auto) 3.2 % Eosinophils (%) (Auto) 0.0 % Basophils (%) (Auto) 0.2 % Neutrophils # (Auto) 5.83 K/uL Lymphocytes # (Auto) 0.28 K/uL Monocytes # (Auto) 0.20 K/uL Eosinophils # (Auto) 0.00 K/uL Basophils # (Auto) 0.01 K/uL RDW Standard Deviation 44.8 fL RDW Coefficient of Variation 14.5 % Immature Granulocyte % (Auto) 0.2 % Immature Granulocyte # (Auto) 0.01 K/uL Hypersegmented Polys 1+ Toxic Granulation 1+ Ovalocytes 1+ Echinocytes 2+ 25-Hydroxy Vitamin D Total 7.0 ng/ml Procalcitonin 0.11 ng/mL Assessment and Plan 76-year-old male presents emergency department with dyspnea on exertion, weakness and profound anemia. acute renal failure and concern for bladder mass Acute renal failure-likely secondary to chronic obstructive uropathy (likely mass) and possibly a dehydration improved clinically but after reviewing labs for today renal function is still poor -Nephrology consult-I spoke to DR Bonner 10/30, she is concerned he will need chronic dialysis acute blood loss anemia secondary to hematuria-concerning for Bladder CA -transfused 2 u PBCs 10/29, hgb reviewed and stable but still gross hematuria in alonso Obstructive uropathy concerning for new Cx of Bladder CA. alonso -urology consult recommendation pending DVT prophylaxis -chemical means contraindicated -TEDS, SCDs CODE STATUS -LEVEL V DO NO RESUSCITATE
[2016-10-30] MEDS ORDERED: SODIUM BICARBONATE 650 MG TAB PO SCH (21:00)
[2016-10-30] MEDS ORDERED: ERGOCALCIFEROL 50,000 INTER.UNIT CAP PO SCH (21:00)
[2016-10-31] VITALS (34 sets, daily range): BP systolic 62–149; BP diastolic 36–87; PULSE 62–116; TEMP 36.3–36.8; O2SAT 97–100; Ht 175.3 cm; Wt 101.6 kg
[2016-10-31] MEDS: CEFTRIAXONE SOD INJ 1 GM in DEXTROSE 5% ADD-VANTAGE 50ML 50 ML IV SCH (06:35)
[2016-10-31 07:28] LABS: BASO % 0.2 %; BASO ABS # 0.01 K/uL (0-0.2); EOS % 0.4 %; HEMATOCRIT 23.5 % (42-52); IG% 0.2 %; LYMPH ABS # 0.67 K/uL (1.2-3.4); MEAN CELL VOLUME 82.7 fL (80-100); MEAN CORPUSCULAR HEMOGLOBIN 29.2 pg (25-34); MEAN CORPUSCULAR HGB CONC 35.3 g/dl (32-36); MEAN PLATELET VOLUME 10.7 fL (7.4-10.4); MONO % 8.4 %; NEUT % 76.8 %; PLATELET COUNT 116 K/uL (130-400); RED BLOOD COUNT 2.84 M/uL (4.7-6.1); WHITE BLOOD COUNT 4.79 K/uL (4.8-10.8)
--- NOTE | 2016-10-31 07:30 | Progress Note ---
Progress Note Date of Service Oct 31, 2016. Progress Note Patient for insertion of permcath today. I have discussed the risks options and benefits of the procedure with the patient. The patient understands the risks options and benefits and agrees to the procedure. I have examined the patient, reviewed the History & Physical and in the interval since the performance of the History & Physical I have noted the following changes of clinical significance: No changes noted
--- NOTE | 2016-10-31 07:30 | Procedure Note ---
Pre-Mod Sedation Assessment General Date of Moderate Sedation: Oct 31, 2016. Vital Signs: Vital Signs Past 12 Hours Date Time Temp Pulse Resp B/P Pulse Ox O2 Delivery O2 Flow Rate FiO2 10/31/16 05:04 36.4 103 18 132/79 100 Room Air 10/31/16 00:40 36.4 103 18 132/79 100 Room Air 10/31/16 00:00 100 Room Air Pre-Sedation Airway Assessment Oral Cavity: Dentures Smoking Status: Former Smoker Mallampati Classification: Class I ASA Classification: Class II Notes The planned sedation has been discussed with the patient and consent obtained. I have identified the patient, determined the appropriateness of sedation and have assessed the patient immediately prior to the procedure. All medicine(s) and interventions are by my order.
[2016-10-31] MEDS ORDERED: MIDAZOLAM HCL 1 MG/ML 2ML VIAL ONE (07:32)
[2016-10-31] MEDS ORDERED: FENTANYL CITRATE INJ 50 MCG/1 ML 2 ML VIAL ONE (07:32)
[2016-10-31] MEDS ORDERED: HEPARIN SOD (PORCINE) 5000 UNIT/ML 1 ML VIAL ONE (07:32)
--- NOTE | 2016-10-31 07:58 | Progress Note ---
Subjective Date of Service: Oct 31, 2016. Subjective pt was visited on 3 occasions, pre op was well, post op perm cath had some tachycardia, exam stable and found to have sinus tach with pac, then aura novoa called in dialysis with weakness, presyncope and low blood pressure, pt was without chest pain, or shortness of breath, felt weak, but was oriented. dialysis stopped, moved to monitored bed and fluid bolus ordered Problem List Medical Problems: (1) Acidosis Status: Acute (2) Acute renal failure Status: Acute (3) Anemia Status: Acute (4) Hematuria Status: Acute (5) Hypothermia Status: Acute (6) Weakness Status: Acute Review of Systems Constitutional: + fatigue, + weakness, No chills, No fever Respiratory: No cough, No dyspnea on exertion, No shortness of breath Cardiac: No chest pain, No edema Abdomen: No diarrhea, No nausea, No pain, No vomiting Musculoskeletal: No joint pain, No muscle pain Male : + hematuria (grossly), No dysuria Neurologic: + weakness, No memory loss Psychiatric: + anxiety, + depression symptoms Objective Vital Signs Date Time Temp Pulse Resp B/P Pulse Ox O2 Delivery O2 Flow Rate FiO2 10/31/16 07:51 36.7 76 17 128/80 97 Room Air 10/31/16 07:13 36.7 76 17 128/80 97 Room Air 10/31/16 05:04 36.4 103 18 132/79 100 Room Air 10/31/16 00:40 36.4 103 18 132/79 100 Room Air 10/31/16 00:00 100 Room Air 10/30/16 16:20 100 Nasal Cannula 2.0 10/30/16 15:37 36.3 91 16 115/73 100 Nasal Cannula 2.0 10/30/16 09:31 Nasal Cannula 2.0 Physical Exam General Appearance: WD/WN, + moderate distress Eyes: PERRL, EOMI Neck: supple, trachea midline Respiratory/Chest: chest non-tender, lungs clear, + decreased breath sounds Cardiovascular: regular rate, rhythm, + tachycardia Abdomen: normal bowel sounds, non tender, soft Extremities: no calf tenderness, + pedal edema Neurologic/Psychiatric: alert, oriented x 3 Skin: normal color, warm/dry, no rash Laboratory Results Last 24 Hours Test 10/30/16 11:25 10/31/16 07:20 Parathyroid Hormone (Intact) 650.3 pg/mL Hepatitis A IgM Antibody NON-REACTIVE Hepatitis B Surface Antigen NEG Hepatitis B Surface Antibody NEG Hepatitis B Core Total Antibody NON-REACTIVE Hepatitis B Core IgM Antibody NON-REACTIVE Hepatitis C Antibody NEG White Blood Count 4.79 K/uL Red Blood Count 2.84 M/uL Hemoglobin 8.3 g/dL Hematocrit 23.5 % Mean Corpuscular Volume 82.7 fL Mean Corpuscular Hemoglobin 29.2 pg Mean Corpuscular Hemoglobin Concent 35.3 g/dl Platelet Count 116 K/uL Mean Platelet Volume 10.7 fL Neutrophils (%) (Auto) 76.8 % Lymphocytes (%) (Auto) 14.0 % Monocytes (%) (Auto) 8.4 % Eosinophils (%) (Auto) 0.4 % Basophils (%) (Auto) 0.2 % Neutrophils # (Auto) 3.68 K/uL Lymphocytes # (Auto) 0.67 K/uL Monocytes # (Auto) 0.40 K/uL Eosinophils # (Auto) 0.02 K/uL Basophils # (Auto) 0.01 K/uL RDW Standard Deviation 45.7 fL RDW Coefficient of Variation 15.0 % Immature Granulocyte % (Auto) 0.2 % Immature Granulocyte # (Auto) 0.01 K/uL Nucleated RBC Absolute Count (auto) 0.02 K/uL Nucleated Red Blood Cells % 0.3 % Assessment and Plan 76-year-old male who presented with weight loss, hematuria and was found to have anemia. acute renal failure with concern for ESRD and bladder mass I personally reviewed the vital signs and labs 10/31, however did have low blood pressure at dialysis requiring moving to higher level of care all meds and labs reviewed, pending troponin and pro calcitonin at transfer i reviewed ECG earlier to show sinus tachy with pac's Acute renal failure-likely secondary to chronic obstructive uropathy (likely mass) -Nephrology consult- DR Bonner perm cath placed 10/31, dialysis not completed will need to perform cautiously acute blood loss anemia secondary to hematuria-concerning for Bladder CA -transfused 2 u PBCs 10/29, hgb has fallen 10/31 repeat and if lower transfuse, still gross hematuria in alonso Obstructive uropathy concerning for new Cx of Bladder CA. alonso -urology consult recommendation consideration of stenting and biopsy, need to stabilize renal failure first DVT prophylaxis -chemical means contraindicated -TEDS, SCDs CODE STATUS -LEVEL V DO NO RESUSCITATE
[2016-10-31] MEDS ORDERED: OXYCODONE/ACETAMINOPHEN 5-325 TAB PO PRN (08:15)
[2016-10-31 08:16] LABS: CALCIUM 6.9 mg/dl (8.5-10.1)
[2016-10-31] MEDS ORDERED: FENTANYL CITRATE INJ 50 MCG/1 ML 2 ML VIAL IV ONE (08:16)
[2016-10-31] MEDS ORDERED: MIDAZOLAM HCL 1 MG/ML 2ML VIAL IV ONE (08:16)
[2016-10-31 08:17] LABS: POTASSIUM 4.2 mmol/L (3.5-5.1)
[2016-10-31] MEDS ORDERED: SODIUM CHLORIDE 0.9% 100ML 100 ML IV ONE (08:24)
[2016-10-31] MEDS ORDERED: NURSING VERBAL MED ORDER ONE ×2 (08:24→21:45)
[2016-10-31] MEDS ORDERED: HEPARIN SOD (PORCINE) 5000 UNIT/ML 1 ML VIAL IV ONE (08:27)
[2016-10-31] MEDS ORDERED: LIDOCAINE HCL 1% 20 ML VIAL SQ ONE (08:27)
[2016-10-31] MEDS ORDERED: SODIUM CHLORIDE 0.9% 250ML 250 ML IV ONE (08:28)
[2016-10-31 08:32] LABS: COMPLETE YES; ECHINOCYTES 2+; OVALOCYTES 2+
--- NOTE | 2016-10-31 08:32 | Procedure Note ---
Post-Moderate Sedation Plan General Date of Moderate Sedation Oct 31, 2016. Vital Signs: Vital Signs Past 12 Hours Date Time Temp Pulse Resp B/P Pulse Ox O2 Delivery O2 Flow Rate FiO2 10/31/16 07:51 36.7 76 17 128/80 97 Room Air 10/31/16 07:13 36.7 76 17 128/80 97 Room Air 10/31/16 05:04 36.4 103 18 132/79 100 Room Air 10/31/16 00:40 36.4 103 18 132/79 100 Room Air 10/31/16 00:00 100 Room Air Review - Discharge Plan Post Moderate Sedation Plan: On clinical assessment, the patient appears to have tolerated the conscious sedation without complications. Patient is recovering as anticipated. Patient will continue to be monitored by nursing and may be discharged when conscious sedation discharge criteria are met.
--- NOTE | 2016-10-31 08:32 | [facility] Post Operative Brief Note ---
Immediate Operative Summary Operative Date Oct 31, 2016. Pre-Operative Diagnosis Acute Renal Failure Post-Operative Diagnosis Same Procedure(s) Performed Insertion of Perm Catheter, Right Internal Jugular Approach, Ultrasound Needle Localization of the Right Internal Jugular Vein, Fluoroscopy for positioning, Moderate Sedation from [id number] 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
[2016-10-31 08:33] LABS: BUN/CREATININE RATIO 11.3 (10-20)
--- NOTE | 2016-10-31 08:52 | DIAGNOSTIC IMAGING REPORT ---
DATE OF PROCEDURE: 10/31/2016 PREOPERATIVE DIAGNOSIS: Acute renal failure, end-stage renal disease. POSTOPERATIVE DIAGNOSIS: Same. PROCEDURE: 1. Insertion of right internal jugular vein PermCath 19 cm length. 2. Ultrasound localization right internal jugular vein. 3. Fluoroscopic imaging for positioning. 4. Moderate conscious sedation 14 minutes. SURGEON: Dr. Castellano. ANESTHETIC: Local with moderate conscious sedation. PROCEDURE INDICATIONS: The patient is a 76-year-old gentleman with chronic renal failure who is now in need of dialysis for acute renal failure. PermCath was recommended. He understood the risks, options and benefits and agreed to go ahead with this procedure. The patient was taken to the angio suite and placed in supine position. After right side of the neck and chest wall were prepped and draped in a sterile manner, local anesthetic was administered. Using ultrasound, the right internal jugular vein was imaged. It was of good size and compressed easily and was patent. There were no filling defects noted. Under ultrasound, the vein was punctured. A wire was then passed centrally under fluoroscopic imaging. It actually passed into the inferior vena cava from above. Next, a stab wound was made in the anterior chest wall. A 19 cm PermCath was inserted through the stab wound in the chest wall and brought out through the puncture site in the neck. The puncture site was then dilated until the 14 [place] peel away sheath was inserted. The catheter was then placed down through the peel away sheath and the peel away sheath removed. The tip of the catheter was in the distal superior vena cava. Both ports aspirated and flushed easily and were instilled with heparin. The patient was slightly hypotensive from his sedation and was given saline bolus. The catheter was sutured to the anterior chest wall with nylon sutures. The puncture site in the neck was closed with interrupted 4-0 Vicryl subcuticular suture and Dermabond for a dressing. Regular dressing was placed on the rest of the catheter. The patient left the angio suite in good condition and tolerated the procedure well.
[2016-10-31] MEDS ORDERED: AMLODIPINE BESYLATE 5 MG TAB PO SCH (09:00)
[2016-10-31] MEDS: PANTOprazole INJ 40 MG in SYRINGE 0 ML IV SCH (11:26)
[2016-10-31] MEDS ORDERED: SODIUM BICARBONATE 650 MG TAB PO ONE (11:30)
--- NOTE | 2016-10-31 12:24 | Progress Note ---
Subjective Date of Service: Oct 31, 2016. Subjective Pt evaluation today including: conversation w/ patient, physical exam, chart review pt went for perm cath this morning. Currently eating lunch and c/o nausea no vomiting. He is afebrile with fluctuating BP. He will begin dialysis per nephrology. [place] intact Problem List Medical Problems: (1) Acidosis Status: Acute (2) Acute renal failure Status: Acute (3) Anemia Status: Acute (4) Hematuria Status: Acute (5) Hypothermia Status: Acute (6) Weakness Status: Acute Review of Systems Constitutional: No chills, No fever Eyes: No worsening of vision ENT: No hearing loss Respiratory: No cough, No shortness of breath Cardiac: No chest pain Abdomen: + nausea Male : + see HPI Endo: + fatigue Objective Vital Signs Date Time Temp Pulse Resp B/P Pulse Ox O2 Delivery O2 Flow Rate FiO2 10/31/16 11:53 36.5 95 16 129/65 100 Room Air 10/31/16 11:12 36.3 96 16 137/71 100 Room Air 10/31/16 10:39 36.5 83 14 123/73 99 Room Air 10/31/16 10:24 36.5 101 14 117/67 99 Room Air 10/31/16 10:10 36.6 94 14 107/64 100 Room Air 10/31/16 09:53 36.5 91 12 123/68 100 Room Air 10/31/16 09:30 36.6 113 17 133/84 99 Room Air 10/31/16 09:15 36.6 116 14 134/87 99 Room Air 10/31/16 09:05 36.6 107 14 94/60 99 Room Air 10/31/16 08:55 36.6 112 16 97/59 98 Room Air 10/31/16 08:45 36.6 108 16 106/70 98 Room Air 10/31/16 07:51 36.7 76 17 128/80 97 Room Air 10/31/16 07:30 Room Air 10/31/16 07:13 36.7 76 17 128/80 97 Room Air 10/31/16 05:04 36.4 103 18 132/79 100 Room Air 10/31/16 00:40 36.4 103 18 132/79 100 Room Air 10/31/16 00:00 100 Room Air 10/30/16 16:20 100 Nasal Cannula 2.0 2/23/17 15:37 36.3 91 16 115/73 100 Nasal Cannula 2.0 Physical Exam General Appearance: WD/WN, no apparent distress ENT: hearing grossly normal Respiratory/Chest: no respiratory distress, no accessory muscle use Neurologic/Psychiatric: alert, normal mood/affect Skin: warm/dry Laboratory Results Last 24 Hours Test 10/31/16 07:20 White Blood Count 4.79 K/uL Red Blood Count 2.84 M/uL Hemoglobin 8.3 g/dL Hematocrit 23.5 % Mean Corpuscular Volume 82.7 fL Mean Corpuscular Hemoglobin 29.2 pg Mean Corpuscular Hemoglobin Concent 35.3 g/dl Platelet Count 116 K/uL Mean Platelet Volume 10.7 fL Neutrophils (%) (Auto) 76.8 % Lymphocytes (%) (Auto) 14.0 % Monocytes (%) (Auto) 8.4 % Eosinophils (%) (Auto) 0.4 % Basophils (%) (Auto) 0.2 % Neutrophils # (Auto) 3.68 K/uL Lymphocytes # (Auto) 0.67 K/uL Monocytes # (Auto) 0.40 K/uL Eosinophils # (Auto) 0.02 K/uL Basophils # (Auto) 0.01 K/uL RDW Standard Deviation 45.7 fL RDW Coefficient of Variation 15.0 % Immature Granulocyte % (Auto) 0.2 % Immature Granulocyte # (Auto) 0.01 K/uL Nucleated RBC Absolute Count (auto) 0.02 K/uL Nucleated Red Blood Cells % 0.3 % Ovalocytes 2+ Echinocytes 2+ Sodium Level 139 mmol/L Potassium Level 4.2 mmol/L Chloride Level 108 mmol/L Carbon Dioxide Level 7 mmol/L Anion Gap 23.0 mmol/L Blood Urea Nitrogen 192 mg/dl Creatinine 17.00 mg/dl Est Creatinine Clear Calc Drug Dose 4.4 ml/min Estimated GFR () 2.8 Estimated GFR (Non- 2.4 BUN/Creatinine Ratio 11.3 Random Glucose 104 mg/dl Calcium Level 6.9 mg/dl Assessment and Plan Acute renal failure. Perm cath was placed today for dialysis Discussed case with Dr. Chanel and Dr. Emanuel- will continue to monitor pt here. Possibly the beginning of next week when stable we can attempt bilateral ureteral stents. He needs cysto to evaluate for possible bladder tumor causing his obstructive uropathy. 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 Possibility of transfer for perc tubes may be necessary if stents unable to be placed.
--- NOTE | 2016-10-31 12:27 | Clinical Documentation Query ---
CLINICAL DOCUMENTATION QUERY Dr. BENAVIDES, In your clinical opinion is this patient being managed for: ( ) severe protein-calorie malnutrition ( ) Other explanation of clinical findings (Please Explain) ( XX ) Unable to determine (Please Define) ( ) Need to Discuss ( ) Not Agree The medical record reflects the following clinical findings, treatment, and risk factors. Clinical Indicators:76 yo male presenting with an unintentional wt loss of 50 lbs in the past 2 months. Pt reported no appetite, nausea and vomiting with attempted food intake x 2 months Treatment: dietary consult, pt was offered snacks and dietary supplements but refused, initiation of treatment for ESRD, Risk Factors: ESRD, prostate cancer still to be ruled out Please clarify and document your clinical opinion in the progress notes and discharge summary. Terms such as "probable", "suspected", "likely", "questionable", "possible", or "still to be ruled out" are acceptable. IF IN AGREEMENT, YOU MUST DOCUMENT ABOVE DIAGNOSTIC STATEMENT IN DAILY PROGRESS NOTES AND DISCHARGE SUMMARY. This document is not part of the patient's record. Thank You, Krupa Fernandez, RN [phone]
[2016-10-31] MEDS: SODIUM CHLORIDE 0.9% 1000ML 1,000 ML IV SCH ×2 (13:12→17:40)
[2016-10-31 13:16] LABS: HEMATOCRIT 23.1 % (42-52)
[2016-10-31] MEDS ORDERED: SODIUM CHLORIDE 0.9% 1000ML 1,000 ML IV SCH (15:15)
[2016-10-31] MEDS ORDERED: ACETAMINOPHEN 325 MG TAB PO PRN (15:15)
[2016-10-31] MEDS ORDERED: ONDANSETRON INJ 2 MG/ML 2 ML VIAL IV PRN (15:15)
[2016-10-31] MEDS ORDERED: PERFLUTREN LIPID MICROSPHERE (DEFINITY) IV ONE (16:18)
[2016-10-31 17:01] LABS: BUN/CREATININE RATIO 10.8 (10-20); CALCIUM 6.3 mg/dl (8.5-10.1); MAGNESIUM 1.5 mg/dl (1.8-2.4)
--- NOTE | 2016-10-31 17:20 | ECHOCARDIOGRAM REPORT ---
*NOTICE TO RECEIVING CONSTITUTION PARTY AGENCY This information is strictly Confidential and protected under [place] law. [place] law prohibits you from making any further disclosure of this information unless further disclosure is expressly permitted by the written consent of the person to whom it pertains or is authorized by law. A general authorization for the release of medical or other information is not sufficient for this purpose. Hospital accepts no responsibility if the information is made available to any other person, INCLUDING THE PATIENT. Interpretation Summary * Name: SRIDEVI GARCIA Study Date: 10/31/2016 04:48 PM BP: 110/74 mmHg * Patient Location: E202 HR: 109 * : 1940 (M/d/yyyy) Gender: Male Height: 69 in * Age: 76 yrs Ethnicity: [place] Weight: 220 lb * Ordering Physician: Home Emanuel * Referring Physician: Self, Referred * Performed By: Rae Dueñas RCS * * Reason For Study: CODE PURPLE / CHF * BSA: 2.2 m2 * -- Conclusions -- * 1. Small to low normal left ventricular size with hyperdynamic systolic function. EF > 75%. No regional wall motion abnormalities visualized. Moderate left ventricular hypertrophy. Type 1 diastolic dysfunction. * 2. No significant valvular abnormalities visualized, however valves were not well seen. * 3. Technically difficult study, enhanced with IV Definity. Image quality was poor without IV echo contrast. * 4. No prior study available for comparison. Procedure Details * Limited views were obtained. * The study was technically difficult. * A contrast injection of Definity was performed to improve assessment of LV function. * Contrast was injected into an intravenous site in the left arm. * One vial of Definity ultrasound contrast was diluted in normal saline to a total volume of 10 ml. A total of '4' ml of solution was administered during imaging. * Lot # [id number] of Definity utilized for procedure. * Expiration date 1 OCT 25. * The attending nurse who injected the contrast agent was RENATA VAQSUES, JIMENA. Left Ventricle * Small to low normal left ventricular size with hyperdynamic systolic function. EF > 75%. No regional wall motion abnormalities visualized. Moderate left ventricular hypertrophy. Type 1 diastolic dysfunction. Right Ventricle * Right ventricle not well visualized but appears to have normal systolic function. Atria * The left atrial size is normal. * Right atrium not well visualized. * Inter atrial septum not well visualized. Mitral Valve * The mitral valve is not well visualized. * There is no mitral valve stenosis. * No significant mitral regurgitation visualized. Tricuspid Valve * The tricuspid valve is not well visualized. Aortic Valve * The aortic valve is not well visualized. * No hemodynamically significant valvular aortic stenosis. * There is no significant aortic regurgitation. Pulmonic Valve * The pulmonic valve is not well visualized. Great Vessels * The aortic root is not well visualized. Pericardium/Pleural * There is no pericardial effusion. Great Vessels * IVC not well visualized. MMode 2D Measurements and Calculations IVSd 1.4 cm LVIDd 3.4 cm LVPWd 1.0 cm IVS/LVPW 1.4 EDV(Teich) 49.0 ml EDV(cubed) 40.9 ml LV mass(C)d 133.1 grams LV mass(C)dI 61.9 grams/m\S\2 Doppler Measurements and Calculations MV E max marisa 53.3 cm/sec MV A max marisa 103.5 cm/sec MV E/A 0.51 MV dec time 0.28 sec Ao V2 max 156.0 cm/sec Ao max PG 9.7 mmHg Ao max PG (full) 1.8 mmHg LV V1 max PG 8.0 mmHg LV V1 max 141.1 cm/sec
[2016-10-31] MEDS: ONDANSETRON INJ 2 MG/ML 2 ML VIAL IV PRN (17:39)
[2016-10-31] MEDS ORDERED: SODIUM BICARBONATE 650 MG TAB PO SCH (21:00)
[2016-10-31] MEDS ORDERED: POTASSIUM CHLORIDE 20 MEQ TABCR PO STA (21:46)
[2016-10-31] MEDS ORDERED: MAGNESIUM SULFATE 1GM / D5W 1 GM in PREMIXED IN D5W 100 ML IV STA (21:46)
[2016-11-01] VITALS (23 sets, daily range): BP systolic 106–162; BP diastolic 58–86; PULSE 80–112; TEMP 36.4–36.9; O2SAT 95–99
[2016-11-01] MEDS: CEFTRIAXONE SOD INJ 1 GM in DEXTROSE 5% ADD-VANTAGE 50ML 50 ML IV SCH (05:59)
[2016-11-01 06:13] LABS: HEMATOCRIT 20.1 % (42-52); MEAN CELL VOLUME 82.7 fL (80-100); MEAN CORPUSCULAR HEMOGLOBIN 29.2 pg (25-34); MEAN CORPUSCULAR HGB CONC 35.3 g/dl (32-36); MEAN PLATELET VOLUME 11.4 fL (7.4-10.4); PLATELET COUNT 99 K/uL (130-400); RED BLOOD COUNT 2.43 M/uL (4.7-6.1); WHITE BLOOD COUNT 3.55 K/uL (4.8-10.8)
[2016-11-01 06:23] LABS: BASO % 0.6 %; BASO ABS # 0.02 K/uL (0-0.2); COMPLETE YES; ECHINOCYTES 1+; EOS % 3.7 %; GIANT PLATELETS 1+; LYMPH % 19.2 %; LYMPH ABS # 0.68 K/uL (1.2-3.4); NEUT % 63.5 %; OVALOCYTES 1+; PLT ESTIMATE DECREASED
[2016-11-01 06:53] LABS: BUN/CREATININE RATIO 10.4 (10-20); POTASSIUM 3.3 mmol/L (3.5-5.1)
[2016-11-01] MEDS: NEPHROCAPS PO SCH (09:00)
[2016-11-01] MEDS ORDERED: CALCITRIOL 0.25 MCG CAP PO SCH (09:00)
--- NOTE | 2016-11-01 09:31 | Nephrology Progress Note ---
Nephrology Progress Note Date of Service Nov 01, 2016. Chief Complaint Follow up evaluation of this patient with ESRD, BPH and bladder stone Subjective Mr. Yung has not had regular medical follow up in the past. He was admitted to the hospital with kidney failure due to obstruction. Renal US revealed bilateral hydronephrosis, BPH and a bladder stone. He underwent R IJ THC placement yesterday and had his 1st HD treatment. HD was complicated by hypotension and MS changes. Blood pressure recovered when patient was taken off circuit and rinsed back. Evelyn novoa was called and patient was transferred to the ICU. Mr. Yung was seen & examined in the ICU this morning. He is A&O x3. He currently denies fever, angina or dyspnea. He denies overt blood loss. He understands the need for ongoing HD. Review of Systems Constitutional: No fever Cardiovascular: No chest pain Respiratory: No dyspnea at rest Abdomen: No nausea, No pain, No vomiting Extremities: No leg edema A complete review of systems was performed. Pertinent positives are noted above. All other systems are negative. Vital Signs Last 8 Hrs Date Time Temp Pulse Resp B/P Pulse Ox O2 Delivery O2 Flow Rate FiO2 11/01/16 08:14 36.4 104 14 106/58 98 Nasal Cannula 2.0 11/01/16 04:07 36.8 95 18 151/69 98 Nasal Cannula 2.0 11/01/16 04:00 Nasal Cannula 2.0 I & O 24-Hour Column 11/01/16 08:00 Intake Total 2340 ml Output Total 1100 ml Balance 1240 ml Last Recorded Weight Weight (Kilograms): 99.600 Physical Exam General Appearance: no apparent distress Head: normocephalic, atraumatic Eyes: PERRL, EOMI Neck: no adenopathy, + pertinent finding (R IJ THC with clean dry dressing) Respiratory/Chest: lungs clear, no respiratory distress, no accessory muscle use Cardiovascular: regular rate, rhythm, no murmur Abdomen/GI: normal bowel sounds, non tender, soft Extremities/Musculoskelatal: no calf tenderness, no pedal edema Neurologic/Psych: alert, oriented x 3 Family History Patient reports no known family medical history. 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) Laboratory Results Past 24 Hours 10/31/16 13:00 11/01/16 05:00 Red Blood Count 2.43, Mean Corpuscular Volume 82.7, Mean Corpuscular Hemoglobin 29.2, Mean Corpuscular Hemoglobin Concent 35.3, Mean Platelet Volume 11.4, Neutrophils (%) (Auto) 63.5, Lymphocytes (%) (Auto) 19.2, Monocytes (%) (Auto) 13.0, Eosinophils (%) (Auto) 3.7, Basophils (%) (Auto) 0.6, Neutrophils # (Auto ) 2.26, Lymphocytes # (Auto) 0.68, Monocytes # (Auto) 0.46, Eosinophils # (Auto ) 0.13, Basophils # (Auto) 0.02 10/31/16 16:23 11/01/16 05:00 Test 10/31/16 14:59 10/31/16 15:28 10/31/16 16:23 10/31/16 18:02 Bedside Glucose 119 mg/dl (70-99) 96 mg/dl (70-99) Troponin I 0.070 ng/ml (0-0.045) Anion Gap 21.0 mmol/L (3-11) Est Creatinine Clear Calc Drug Dose 6.2 ml/min Estimated GFR () 4.2 Estimated GFR (Non- 3.6 BUN/Creatinine Ratio 10.8 (10-20) Calcium Level 6.3 mg/dl (8.5-10.1) Magnesium Level 1.5 mg/dl (1.8-2.4) Procalcitonin 0.19 ng/mL (0-0.5) Test 10/31/16 20:30 10/31/16 21:10 11/01/16 05:00 Bedside Glucose 137 mg/dl (70-99) Troponin I 0.072 ng/ml (0-0.045) 0.110 ng/ml (0-0.045) White Blood Count 3.55 K/uL (4.8-10.8) Red Blood Count 2.43 M/uL (4.7-6.1) Hemoglobin 7.1 g/dL (14.0-18.0) Hematocrit 20.1 % (42-52) Mean Corpuscular Volume 82.7 fL (80-100) Mean Corpuscular Hemoglobin 29.2 pg (25-34) Mean Corpuscular Hemoglobin Concent 35.3 g/dl (32-36) Platelet Count 99 K/uL (130-400) Mean Platelet Volume 11.4 fL (7.4-10.4) Neutrophils (%) (Auto) 63.5 % Lymphocytes (%) (Auto) 19.2 % Monocytes (%) (Auto) 13.0 % Eosinophils (%) (Auto) 3.7 % Basophils (%) (Auto) 0.6 % Neutrophils # (Auto) 2.26 K/uL (1.4-6.5) Lymphocytes # (Auto) 0.68 K/uL (1.2-3.4) Monocytes # (Auto) 0.46 K/uL (0.11-0.59) Eosinophils # (Auto) 0.13 K/uL (0-0.5) Basophils # (Auto) 0.02 K/uL (0-0.2) RDW Standard Deviation 45.4 fL (36.4-46.3) RDW Coefficient of Variation 15.0 % (11.5-14.5) Immature Granulocyte % (Auto) 0.0 % Immature Granulocyte # (Auto) 0.00 K/uL (0.00-0.02) Platelet Estimate DECREASED Giant Platelets 1+ Ovalocytes 1+ Echinocytes 1+ Anion Gap 20.0 mmol/L (3-11) Est Creatinine Clear Calc Drug Dose 5.7 ml/min Estimated GFR () 3.8 Estimated GFR (Non- 3.3 BUN/Creatinine Ratio 10.4 (10-20) Calcium Level 6.0 mg/dl (8.5-10.1) Magnesium Level 1.7 mg/dl (1.8-2.4) Allergies Coded Allergies: No Known Allergies (Unverified , 10/29/16) Medications Current Inpatient Medications Medications (Trade) Dose Ordered Sig/Sonia Route Start Time Stop Time Status Last Admin Dose Admin Acetaminophen (Tylenol Tab) 650 mg Q4H PRN PO 10/29/16 16:00 11/28/16 15:59 Ondansetron HCl 4 mg 4 mg Q6H PRN IV 10/29/16 16:00 11/28/16 15:59 10/31/16 17:39 4 MG Ceftriaxone Sodium/Dextrose (Rocephin Inj/ Dextrose Add-[place] 50ML) 50 ml @ 100 mls/hr Q24H IV 10/30/16 05:30 11/09/16 05:29 11/01/16 05:59 100 MLS/HR Calcium Carbonate (Tums Chew Tab) 500 mg ACHS PRN PO 10/30/16 10:00 11/29/16 09:59 Amlodipine Besylate (Norvasc Tab) 10 mg DAILY PO 10/31/16 09:00 11/30/16 08:59 Future Hold Ergocalciferol 82953 interunit 50,000 interunit Th@2100 PO 10/30/16 21:00 01/15/17 21:01 10/30/16 20:57 50,000 INTERUNIT Sodium Chloride (Nss 1000ml) 1,000 ml @ 80 mls/hr [id number] IV 10/30/16 12:15 11/29/16 12:14 10/31/16 17:40 80 MLS/HR Calcitriol (Rocaltrol Cap) 0.5 mcg TuThSa@0900 PO 11/01/16 09:00 12/01/16 08:59 Oxycodone/ Acetaminophen FOR MODERATE PAIN ... Q4H PRN PO 10/31/16 08:15 11/14/16 08:14 Pantoprazole Sodium/Syringe (Protonix Inj/ Syringe) 10 ml @ 5 mls/min DAILY@11 IV 10/31/16 11:00 11/30/16 10:59 10/31/16 11:26 5 MLS/MIN Sodium Bicarbonate (Sodium Bicarbonate Tab) 1,300 mg BID PO 10/31/16 21:00 11/30/16 20:59 10/31/16 19:14 1,300 MG Vitamin B Complex/ Vit C/Folic Acid (Nephrocaps) 1 cap QAM PO 11/01/16 09:00 12/01/16 08:59 Impression (1) ESRD needing dialysis (2) Hyperkalemia, diminished renal excretion (3) Metabolic acidosis with increased anion gap and reduced excretion of inorganic acids (4) Secondary hyperparathyroidism of renal origin (5) Anemia (6) Hematuria (7) Vitamin D deficiency Mr. Yung presented to the hospital with 6 month h/o hematuria, progressive weight loss, recent worsening shortness of breath, anorexia nausea. On admission he was found to be anemic with hemoglobin 6.7, renal impairment with creatinine 18 and BUN 192. No prior h/o CKD. Renal US showed bilateral severe hydronephrosis with significant cortical atrophy and bladder mass. He has been uremic seems to be for long time as indicated by significant weight loss, anorexia, nausea and generalized weakness. 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 No history of diabetes or coronary artery disease. History of hypertension but has not been taking any medications were following with any physician for 10 years. Currently blood pressure slightly elevated, on amlodipine 5 milligrams. Recommendations END STAGE RENAL DISEASE: -- Will schedule 2nd HD treatment today. No heparin. Only 1 L UF. HD RN advised to keep SBP > 90 mm Hg -- D/C NaHCO3 -- Protect left arm for AVF. Awaiting further vascular surgery input -- nutrition services associate consulted to set up outpatient dialysis in [place], [place] BPH / BLADDER MASS / BLADDER STONE: -- Patient will require cystoscopy early next week ANEMIA: -- Will transfuse 2 units PRBC going on HD this am BONE & MINERAL METABOLISM: -- Patient has elevated PTH. Patient has been started on calcitriol -- Tums 1 tabs with each male as a phosphate binder
--- NOTE | 2016-11-01 11:04 | Progress Note ---
Progress Note Date of Service Nov 01, 2016. Progress Note S: Subjectively, doing a bit better today - actively being dialyzed (and tolerating it better than yesterday) as I evaluated him - denies significant pain O: Vital Signs Past 12 Hours Date Time Temp Pulse Resp B/P Pulse Ox O2 Delivery O2 Flow Rate FiO2 11/01/16 10:30 86 132/86 11/01/16 10:15 82 131/78 11/01/16 10:00 88 10 11/01/16 10:00 85 126/83 11/01/16 09:45 82 138/81 11/01/16 09:30 83 145/69 11/01/16 09:15 80 129/66 11/01/16 09:00 36.7 81 119/60 11/01/16 08:14 36.4 104 14 106/58 98 Nasal Cannula 2.0 11/01/16 04:07 36.8 95 18 151/69 98 Nasal Cannula 2.0 11/01/16 04:00 Nasal Cannula 2.0 11/01/16 00:01 Nasal Cannula 2.0 10/31/16 23:56 36.4 104 18 149/65 100 Nasal Cannula 2.0 11/01/16 05:00 Red Blood Count 2.43, Mean Corpuscular Volume 82.7, Mean Corpuscular Hemoglobin 29.2, Mean Corpuscular Hemoglobin Concent 35.3, Mean Platelet Volume 11.4, Neutrophils (%) (Auto) 63.5, Lymphocytes (%) (Auto) 19.2, Monocytes (%) (Auto) 13.0, Eosinophils (%) (Auto) 3.7, Basophils (%) (Auto) 0.6, Neutrophils # (Auto ) 2.26, Lymphocytes # (Auto) 0.68, Monocytes # (Auto) 0.46, Eosinophils # (Auto ) 0.13, Basophils # (Auto) 0.02 11/01/16 05:00 Test 10/31/16 16:23 10/31/16 20:30 11/01/16 05:00 Procalcitonin 0.19 ng/mL (0-0.5) Bedside Glucose 137 mg/dl (70-99) White Blood Count 3.55 K/uL (4.8-10.8) Red Blood Count 2.43 M/uL (4.7-6.1) Hemoglobin 7.1 g/dL (14.0-18.0) Hematocrit 20.1 % (42-52) Mean Corpuscular Volume 82.7 fL (80-100) Mean Corpuscular Hemoglobin 29.2 pg (25-34) Mean Corpuscular Hemoglobin Concent 35.3 g/dl (32-36) Platelet Count 99 K/uL (130-400) Mean Platelet Volume 11.4 fL (7.4-10.4) Neutrophils (%) (Auto) 63.5 % Lymphocytes (%) (Auto) 19.2 % Monocytes (%) (Auto) 13.0 % Eosinophils (%) (Auto) 3.7 % Basophils (%) (Auto) 0.6 % Neutrophils # (Auto) 2.26 K/uL (1.4-6.5) Lymphocytes # (Auto) 0.68 K/uL (1.2-3.4) Monocytes # (Auto) 0.46 K/uL (0.11-0.59) Eosinophils # (Auto) 0.13 K/uL (0-0.5) Basophils # (Auto) 0.02 K/uL (0-0.2) RDW Standard Deviation 45.4 fL (36.4-46.3) RDW Coefficient of Variation 15.0 % (11.5-14.5) Immature Granulocyte % (Auto) 0.0 % Immature Granulocyte # (Auto) 0.00 K/uL (0.00-0.02) Platelet Estimate DECREASED Giant Platelets 1+ Ovalocytes 1+ Echinocytes 1+ Anion Gap 20.0 mmol/L (3-11) Est Creatinine Clear Calc Drug Dose 5.7 ml/min Estimated GFR () 3.8 Estimated GFR (Non- 3.3 BUN/Creatinine Ratio 10.4 (10-20) Calcium Level 6.0 mg/dl (8.5-10.1) Magnesium Level 1.7 mg/dl (1.8-2.4) Troponin I 0.110 ng/ml (0-0.045) NAD - resting comfortably in bed AAO being dialyzed no resp distress rrr abd soft urine bloody (alonso) A/P: Renal failure - HD initiated yesterday (hypotensive and confused); elevated PSA; bladder stone/enlarged prostate vs bladder mass 1. Renal failure - while his initial causal pathology is likely obstructive uropathy, I am afraid his kidneys are unlikely to recover significant function even with catheters/stenting/etc - his UoP has decreased slightly in the past two days - I would consider repeating an US at some point next week - if his hydro ( which was severe) has resolved/improved considerably with the alonso catheter, I would likely abandon the idea of stenting his ureters, etc 2. PSA - given the multitude of acute issues he is facing, I am uncertain how to interpret this, but there is certainly the possibility that he harbors an underlying prostate cancer - that said, he does not seem to show impressive adenopathy on CT and his hydronephrosis extends to the bladder implying his hydro is from bladder outlet obstruction rather than b/l upper tract obstruction - with time, we will re-evaluate this, but at present, I am uncertain this is all that pressing 3. Hematuria/bladder stone - at some point, cystoscopy is warranted - CT seems to show that the question of a mass on US is very likely just his prostate and not a bladder tumor - he is lucid enough today to tell me he had a TURP in [place], [place] several years ago - he has no hx of bladder cancer or TURBT - while cysto should be completed at some point in the future, this is not necessarily urgent as I think it will have little affect on his more severe/ acute issues and I would greatly prefer to wait until he is more adjusted to his HD and hemodynamically/functionally stable
--- NOTE | 2016-11-01 12:25 | Progress Note ---
Subjective Date of Service: Nov 01, 2016. Subjective this pt is tolerating dialysis today, no focal issues did require additional blood transfusion today Problem List Medical Problems: (1) Acidosis Status: Acute (2) Acute renal failure Status: Acute (3) Anemia Status: Acute (4) Hematuria Status: Acute (5) Hypothermia Status: Acute (6) Weakness Status: Acute Review of Systems Constitutional: No chills, No fatigue, No fever, No weakness Respiratory: No cough, No shortness of breath Cardiac: No chest pain, No edema Abdomen: No diarrhea, No nausea, No pain, No vomiting Musculoskeletal: No joint pain, No muscle pain Objective Vital Signs Date Time Temp Pulse Resp B/P Pulse Ox O2 Delivery O2 Flow Rate FiO2 11/01/16 10:30 86 132/86 11/01/16 10:15 82 131/78 11/01/16 10:00 88 10 11/01/16 10:00 85 126/83 11/01/16 09:45 82 138/81 11/01/16 09:30 83 145/69 11/01/16 09:15 80 129/66 11/01/16 09:00 36.7 81 119/60 11/01/16 08:14 36.4 104 14 106/58 98 Nasal Cannula 2.0 11/01/16 04:07 36.8 95 18 151/69 98 Nasal Cannula 2.0 11/01/16 04:00 Nasal Cannula 2.0 11/01/16 00:01 Nasal Cannula 2.0 10/31/16 23:56 36.4 104 18 149/65 100 Nasal Cannula 2.0 10/31/16 20:00 Nasal Cannula 2.0 10/31/16 19:12 36.6 94 16 148/83 100 Nasal Cannula 2.0 10/31/16 15:30 36.4 112 16 110/74 99 Nasal Cannula 2.0 10/31/16 15:18 98 118/58 10/31/16 14:59 73 138/57 10/31/16 14:56 75 72/36 10/31/16 14:45 95 69/49 10/31/16 14:30 93 65/41 10/31/16 14:19 93 68/48 10/31/16 14:17 65 62/43 10/31/16 14:15 62 69/41 10/31/16 14:10 98 80/58 10/31/16 14:01 67 82/59 10/31/16 14:00 100 65/40 10/31/16 13:48 70 134/71 10/31/16 13:40 36.8 69 117/69 10/31/16 12:55 36.5 81 16 119/68 98 Room Air 10/31/16 11:53 36.5 95 16 129/65 100 Room Air 10/31/16 11:12 36.3 96 16 137/71 100 Room Air Physical Exam General Appearance: WD/WN, no apparent distress, + mild distress Neck: supple, no JVD Respiratory/Chest: chest non-tender, lungs clear, normal breath sounds Cardiovascular: regular rate, rhythm, no murmur Abdomen: normal bowel sounds, non tender, soft Extremities: no pedal edema, no calf tenderness Neurologic/Psychiatric: alert, oriented x 3 Laboratory Results Last 24 Hours Test 10/31/16 13:00 10/31/16 14:59 10/31/16 15:28 10/31/16 16:23 Hemoglobin 8.1 g/dL Hematocrit 23.1 % Bedside Glucose 119 mg/dl Troponin I 0.070 ng/ml Sodium Level 139 mmol/L Potassium Level 3.0 mmol/L Chloride Level 106 mmol/L Carbon Dioxide Level 12 mmol/L Anion Gap 21.0 mmol/L Blood Urea Nitrogen 141 mg/dl Creatinine 12.00 mg/dl Est Creatinine Clear Calc Drug Dose 6.2 ml/min Estimated GFR () 4.2 Estimated GFR (Non- 3.6 BUN/Creatinine Ratio 10.8 Random Glucose 100 mg/dl Calcium Level 6.3 mg/dl Magnesium Level 1.5 mg/dl Procalcitonin 0.19 ng/mL Test 10/31/16 18:02 10/31/16 20:30 10/31/16 21:10 11/01/16 05:00 Bedside Glucose 96 mg/dl 137 mg/dl Troponin I 0.072 ng/ml 0.110 ng/ml White Blood Count 3.55 K/uL Red Blood Count 2.43 M/uL Hemoglobin 7.1 g/dL Hematocrit 20.1 % Mean Corpuscular Volume 82.7 fL Mean Corpuscular Hemoglobin 29.2 pg Mean Corpuscular Hemoglobin Concent 35.3 g/dl Platelet Count 99 K/uL Mean Platelet Volume 11.4 fL Neutrophils (%) (Auto) 63.5 % Lymphocytes (%) (Auto) 19.2 % Monocytes (%) (Auto) 13.0 % Eosinophils (%) (Auto) 3.7 % Basophils (%) (Auto) 0.6 % Neutrophils # (Auto) 2.26 K/uL Lymphocytes # (Auto) 0.68 K/uL Monocytes # (Auto) 0.46 K/uL Eosinophils # (Auto) 0.13 K/uL Basophils # (Auto) 0.02 K/uL RDW Standard Deviation 45.4 fL RDW Coefficient of Variation 15.0 % Immature Granulocyte % (Auto) 0.0 % Immature Granulocyte # (Auto) 0.00 K/uL Platelet Estimate DECREASED Giant Platelets 1+ Ovalocytes 1+ Echinocytes 1+ Sodium Level 143 mmol/L Potassium Level 3.3 mmol/L Chloride Level 110 mmol/L Carbon Dioxide Level 13 mmol/L Anion Gap 20.0 mmol/L Blood Urea Nitrogen 135 mg/dl Creatinine 13.00 mg/dl Est Creatinine Clear Calc Drug Dose 5.7 ml/min Estimated GFR () 3.8 Estimated GFR (Non- 3.3 BUN/Creatinine Ratio 10.4 Random Glucose 101 mg/dl Calcium Level 6.0 mg/dl Magnesium Level 1.7 mg/dl Assessment and Plan 76-year-old male who presented with weight loss, hematuria and was found to have anemia. acute renal failure with concern for ESRD and bladder mass I personally reviewed the vital signs and labs 11/01, improving CR but lower blood pressure Acute renal failure-likely secondary to chronic obstructive uropathy (likely mass) -Nephrology consult- DR Carson perm cath placed 10/31, dialysis currently in room and tolerating it acute blood loss anemia secondary to hematuria-concerning for Bladder CA -transfused 4 u PBCs thus far, gross hematuria in alonso Obstructive uropathy concerning for Bladder mass alonso -urology consult recommendation consideration of stenting and biopsy, need to stabilize renal failure first, high psa not necessarily meaning prostate ca due to renal failure DVT prophylaxis -chemical means contraindicated -TEDS, SCDs CODE STATUS -LEVEL V DO NO RESUSCITATE
[2016-11-01] MEDS: CALCITRIOL 0.25 MCG CAP PO SCH (14:10)
[2016-11-01] MEDS: PANTOprazole INJ 40 MG in SYRINGE 0 ML IV SCH (14:10)
[2016-11-01] MEDS: SODIUM CHLORIDE 0.9% 1000ML 1,000 ML IV SCH (14:17)
[2016-11-02] VITALS (8 sets, daily range): BP systolic 110–158; BP diastolic 64–91; PULSE 80–98; TEMP 36.5–36.9; O2SAT 98–100
[2016-11-02] MEDS: SODIUM CHLORIDE 0.9% 1000ML 1,000 ML IV SCH ×2 (02:45→16:18)
[2016-11-02] MEDS: CEFTRIAXONE SOD INJ 1 GM in DEXTROSE 5% ADD-VANTAGE 50ML 50 ML IV SCH (05:30)
[2016-11-02 05:45] LABS: HEMATOCRIT 23.1 % (42-52); MEAN CELL VOLUME 83.1 fL (80-100); MEAN CORPUSCULAR HEMOGLOBIN 29.5 pg (25-34); MEAN CORPUSCULAR HGB CONC 35.5 g/dl (32-36); RED BLOOD COUNT 2.78 M/uL (4.7-6.1); WHITE BLOOD COUNT 3.59 K/uL (4.8-10.8)
[2016-11-02 06:06] LABS: MEAN PLATELET VOLUME 11.9 fL (7.4-10.4); PLATELET COUNT 81 K/uL (130-400)
[2016-11-02 06:07] LABS: PLT ESTIMATE DECREASED
[2016-11-02 06:36] LABS: BUN/CREATININE RATIO 9.9 (10-20); CALCIUM 5.9 mg/dl (8.5-10.1); CREATININE 9.3 mg/dl (0.60-1.40); POTASSIUM 3.1 mmol/L (3.5-5.1)
[2016-11-02] MEDS: NEPHROCAPS PO SCH (08:29)
[2016-11-02] MEDS ORDERED: POTASSIUM CHLORIDE 10 MEQ TABCR PO ONE (08:30)
[2016-11-02] MEDS: PANTOprazole INJ 40 MG in SYRINGE 0 ML IV SCH (11:00)
--- NOTE | 2016-11-02 11:41 | Progress Note ---
Progress Note Date of Service Nov 02, 2016. Progress Note S: Continues to improve - tolerated HD well yesterday - mentation is further improved today - no major subjective complaints O: Vital Signs Past 12 Hours Date Time Temp Pulse Resp B/P Pulse Ox O2 Delivery O2 Flow Rate FiO2 11/02/16 08:00 Nasal Cannula 2.0 11/02/16 07:19 36.7 94 18 110/64 99 Nasal Cannula 2.0 11/02/16 04:19 36.9 91 18 131/64 98 Nasal Cannula 2.0 11/02/16 04:00 Nasal Cannula 2.0 11/02/16 00:00 Nasal Cannula 2.0 11/01/16 23:57 36.9 112 18 162/79 99 Nasal Cannula 2.0 11/02/16 05:12 11/02/16 05:12 Test 11/02/16 05:12 Red Blood Count 2.78 M/uL (4.7-6.1) Mean Corpuscular Volume 83.1 fL (80-100) Mean Corpuscular Hemoglobin 29.5 pg (25-34) Mean Corpuscular Hemoglobin Concent 35.5 g/dl (32-36) RDW Standard Deviation 45.3 fL (36.4-46.3) RDW Coefficient of Variation 14.7 % (11.5-14.5) Mean Platelet Volume 11.9 fL (7.4-10.4) Platelet Estimate DECREASED Anion Gap 13.0 mmol/L (3-11) Est Creatinine Clear Calc Drug Dose 8.0 ml/min Estimated GFR () 5.7 Estimated GFR (Non- 4.9 BUN/Creatinine Ratio 9.9 (10-20) Calcium Level 5.9 mg/dl (8.5-10.1) NAD AAOx3 no resp distress rrr abd soft, nt/nd Urine clear in tubing - red in bag Prostate - enlarged, soft, smooth,no nodules - benign exam A/P: Renal failure - likely obstructive in nature; elevated PSA 1. Renal failure - cont HD - despite the obstructive nature of this failure, I have limited suspicion that relief of the obstruction will resolve his failure or get him off of HD - draining good quantities of urine with catheter - consider US later this week - it would be surprising if his hydro is entirely resolved, but if it is improving, this would further support the idea of his obstruction being at the bladder outlet and thus help us avoid consideration of stents or perc nephrostomies 2. PSA - elevated PSA, however, given the other acute events, I am uncertain how much of this is secondary to his overall condition vs a primary prostate process - benign exam; no adenopathy, etc on imaging to suggest metastatic disease - my overall recommendation is observe for now with repeat PSA at some later junction - if he undergoes an anesthesia for cysto, etc at a later date, we could simultaneously perform a biopsy for definitive answer 3. Hematuria - cysto at some stage, timing of this is likely non-urgen - US raised some question of a bladder mass (initially there was some question of whether he had a hx of TCC - he does not) - CT makes this more clearly look like a large prostate - will hold on any cysto for now
--- NOTE | 2016-11-02 12:02 | Nephrology Progress Note ---
Nephrology Progress Note Date of Service Nov 02, 2016. Chief Complaint Follow up evaluation of this patient with ESRD, BPH and bladder stone Subjective Mr. Yung has not had regular medical follow up in the past. He was admitted to the hospital with kidney failure due to obstruction. Renal US revealed bilateral hydronephrosis, BPH and a bladder stone. He underwent R IJ THC placement 10/31/16 and had his 1st HD treatment. He was dialyzed yesterday without complication. 2 units PRBC were given during HD yesterday. Mr. Yung was seen & examined in the ICU this morning. He is A&O x3. He currently denies fever, angina or dyspnea. He denies overt blood loss. He understands the need for ongoing HD. Review of Systems Constitutional: No fever Cardiovascular: No chest pain Respiratory: No dyspnea at rest Abdomen: No nausea, No pain, No vomiting Extremities: No leg edema A complete review of systems was performed. Pertinent positives are noted above. All other systems are negative. Vital Signs Last 8 Hrs Date Time Temp Pulse Resp B/P Pulse Ox O2 Delivery O2 Flow Rate FiO2 11/02/16 08:00 Nasal Cannula 2.0 11/02/16 07:19 36.7 94 18 110/64 99 Nasal Cannula 2.0 11/02/16 04:19 36.9 91 18 131/64 98 Nasal Cannula 2.0 11/02/16 04:00 Nasal Cannula 2.0 I & O 24-Hour Column 11/02/16 08:00 Intake Total 2999 ml Output Total 2550 ml Balance 449 ml Last Recorded Weight Weight (Kilograms): 99.600 Physical Exam General Appearance: no apparent distress Head: normocephalic, atraumatic Eyes: PERRL, EOMI Neck: no adenopathy Respiratory/Chest: lungs clear, no respiratory distress Cardiovascular: regular rate, rhythm Abdomen/GI: normal bowel sounds, non tender, soft Genitourinary - Male: + pertinent finding (alonso catheter in place draining dark yellow urine) Extremities/Musculoskelatal: no calf tenderness, no pedal edema Neurologic/Psych: alert Family History Patient reports no known family medical history. 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5-10.1) Allergies Coded Allergies: No Known Allergies (Unverified , 10/29/16) Medications Current Inpatient Medications Medications (Trade) Dose Ordered Sig/Sonia Route Start Time Stop Time Status Last Admin Dose Admin Acetaminophen (Tylenol Tab) 650 mg Q4H PRN PO 10/29/16 16:00 11/28/16 15:59 Ondansetron HCl 4 mg 4 mg Q6H PRN IV 10/29/16 16:00 11/28/16 15:59 10/31/16 17:39 4 MG Ceftriaxone Sodium/Dextrose (Rocephin Inj/ Dextrose Add-[place] 50ML) 50 ml @ 100 mls/hr Q24H IV 10/30/16 05:30 11/09/16 05:29 11/02/16 05:30 100 MLS/HR Calcium Carbonate (Tums Chew Tab) 500 mg ACHS PRN PO 10/30/16 10:00 11/29/16 09:59 Amlodipine Besylate 10 mg 10 mg DAILY PO 10/31/16 09:00 11/30/16 08:59 Future Hold Sodium Chloride (Nss 1000ml) 1,000 ml @ 80 mls/hr [id number] IV 10/30/16 12:15 11/29/16 12:14 11/02/16 02:45 80 MLS/HR Calcitriol (Rocaltrol Cap) 0.5 mcg TuThSa@0900 PO 11/01/16 09:00 12/01/16 08:59 11/01/16 14:10 0.5 MCG Oxycodone/ Acetaminophen FOR MODERATE PAIN ... Q4H PRN PO 10/31/16 08:15 11/14/16 08:14 Pantoprazole Sodium/Syringe (Protonix Inj/ Syringe) 10 ml @ 5 mls/min DAILY@11 IV 10/31/16 11:00 11/30/16 10:59 11/01/16 14:10 5 MLS/MIN Vitamin B Complex/ Vit C/Folic Acid (Nephrocaps) 1 cap QAM PO 11/01/16 09:00 12/01/16 08:59 11/02/16 08:29 1 CAP Impression (1) ESRD needing dialysis (2) Hyperkalemia, diminished renal excretion (3) Metabolic acidosis with increased anion gap and reduced excretion of inorganic acids (4) Secondary hyperparathyroidism of renal origin (5) Anemia (6) Hematuria (7) Vitamin D deficiency Mr. Yung presented to the hospital with 6 month h/o hematuria, progressive weight loss, recent worsening shortness of breath, anorexia nausea. On admission he was found to be anemic with hemoglobin 6.7, renal impairment with creatinine 18 and BUN 192. No prior h/o CKD. Renal US showed bilateral severe hydronephrosis with significant cortical atrophy and bladder mass. He has been uremic seems to be for long time as indicated by significant weight loss, anorexia, nausea and generalized weakness. 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 No history of diabetes or coronary artery disease. History of hypertension but has not been taking any medications were following with any physician for 10 years. Currently blood pressure slightly elevated, on amlodipine 5 milligrams. Recommendations END STAGE RENAL DISEASE: -- Volume status and electrolyte balance remain acceptable at this time. Will schedule next HD for am. -- Will attempt 2 L UF w/ HD. Dialysis will be performed heparin free -- Protect left arm for AVF. Awaiting further vascular surgery input -- janitorial services supervisor consulted to set up outpatient dialysis in [place] BPH / BLADDER MASS / BLADDER STONE: -- Urology recommendations have been reviewed. Patient will require follow up renal US this coming week to determine whether hydronephrosis has improved following alonso catheter placement. This will help to determine whether ureteral stents will be needed -- Patient will likely require cystoscopy and prostate biopsy. Awaiting further urology input ANEMIA: -- Two units PRBC transfused during HD 11/01/16 BONE & MINERAL METABOLISM: -- Patient has elevated PTH. He has been started on calcitriol -- Tums one tablet with each male as a phosphate binder
--- NOTE | 2016-11-02 13:56 | Progress Note ---
Subjective Date of Service: Nov 02, 2016. Subjective pt looks much improved has little discomfort except for some peripheral neuropathy issues Problem List Medical Problems: (1) Acidosis Status: Acute (2) Acute renal failure Status: Acute (3) Anemia Status: Acute (4) Hematuria Status: Acute (5) Hypothermia Status: Acute (6) Weakness Status: Acute Review of Systems Constitutional: + fatigue, + weakness, No chills, No fever Respiratory: No cough, No shortness of breath Cardiac: No chest pain, No edema Abdomen: No nausea, No pain, No vomiting Male : + hematuria, No dysuria Neurologic: + weakness, No memory loss Psychiatric: No anhedonism, No depression symptoms Objective Vital Signs Date Time Temp Pulse Resp B/P Pulse Ox O2 Delivery O2 Flow Rate FiO2 11/02/16 07:19 36.7 94 18 110/64 99 Nasal Cannula 2.0 11/02/16 04:19 36.9 91 18 131/64 98 Nasal Cannula 2.0 11/02/16 04:00 Nasal Cannula 2.0 11/02/16 00:00 Nasal Cannula 2.0 11/01/16 23:57 36.9 112 18 162/79 99 Nasal Cannula 2.0 11/01/16 20:00 Nasal Cannula 2.0 11/01/16 19:50 36.7 100 19 107/68 99 Nasal Cannula 2.0 11/01/16 16:00 Nasal Cannula 2.0 11/01/16 15:20 36.6 91 19 135/81 97 Nasal Cannula 2.0 11/01/16 13:00 36.7 86 18 126/75 95 Nasal Cannula 2.0 11/01/16 12:35 36.4 89 134/83 11/01/16 12:15 81 119/79 11/01/16 12:00 92 127/84 11/01/16 12:00 Nasal Cannula 2.0 11/01/16 11:45 84 121/81 11/01/16 11:30 82 127/70 11/01/16 11:26 36.4 92 16 121/68 99 2.0 11/01/16 11:15 81 119/78 11/01/16 11:00 86 122/74 11/01/16 10:52 36.9 88 18 111/76 97 2.0 11/01/16 10:45 90 115/76 11/01/16 10:30 86 132/86 11/01/16 10:15 82 131/78 11/01/16 10:00 88 10 11/01/16 10:00 85 126/83 11/01/16 09:45 82 138/81 11/01/16 09:30 83 145/69 11/01/16 09:15 80 129/66 11/01/16 09:00 36.7 81 119/60 Physical Exam General Appearance: WD/WN, + mild distress Neck: supple, no JVD Respiratory/Chest: chest non-tender, lungs clear Cardiovascular: regular rate, rhythm, no murmur Abdomen: normal bowel sounds, non tender, soft Extremities: no pedal edema, no calf tenderness Neurologic/Psychiatric: alert, oriented x 3 Laboratory Results Last 24 Hours Test 11/02/16 05:12 White Blood Count 3.59 K/uL Red Blood Count 2.78 M/uL Hemoglobin 8.2 g/dL Hematocrit 23.1 % Mean Corpuscular Volume 83.1 fL Mean Corpuscular Hemoglobin 29.5 pg Mean Corpuscular Hemoglobin Concent 35.5 g/dl RDW Standard Deviation 45.3 fL RDW Coefficient of Variation 14.7 % Platelet Count 81 K/uL Mean Platelet Volume 11.9 fL Platelet Estimate DECREASED Sodium Level 138 mmol/L Potassium Level 3.1 mmol/L Chloride Level 107 mmol/L Carbon Dioxide Level 18 mmol/L Anion Gap 13.0 mmol/L Blood Urea Nitrogen 91 mg/dl Creatinine 9.30 mg/dl Est Creatinine Clear Calc Drug Dose 8.0 ml/min Estimated GFR () 5.7 Estimated GFR (Non- 4.9 BUN/Creatinine Ratio 9.9 Random Glucose 105 mg/dl Calcium Level 5.9 mg/dl Assessment and Plan 76-year-old male who presented with weight loss, hematuria and was found to have anemia. acute renal failure with need for dialysis and bladder mass I personally reviewed the vital signs and labs 11/02, improving CR, remains anemic and low potassium Acute renal failure-likely secondary to chronic obstructive uropathy (likely mass) -Nephrology consult- perm cath placed 10/31, dialysis 10/31 stopped early due to low bp, tolerated HD on 11/01 Cr now 9.3 acute blood loss anemia secondary to hematuria-concerning for Bladder CA -transfused 4 u PBCs thus far, gross hematuria in alonso, hgb remains in 8 range Obstructive uropathy concerning for Bladder mass alonso -urology consult recommendation consideration of stenting and biopsy, need to stabilize renal failure first, high psa not necessarily meaning prostate ca and prostate exam is not consistent with large hard prostate, recommending repeat U/ S 11/04 DVT prophylaxis -chemical means contraindicated -TEDS, SCDs CODE STATUS -LEVEL V DO NO RESUSCITATE Nicole Win [phone], who is a RN was updated 11/02
[2016-11-02] MEDS: GABAPENTIN 100 MG CAP PO SCH (21:41)
[2016-11-03] VITALS (24 sets, daily range): BP systolic 92–155; BP diastolic 63–91; PULSE 53–98; TEMP 36.5–36.9; O2SAT 97–100
[2016-11-03] MEDS: SODIUM CHLORIDE 0.9% 1000ML 1,000 ML IV SCH (04:15)
[2016-11-03 05:42] LABS: MEAN CELL VOLUME 84.9 fL (80-100); MEAN CORPUSCULAR HEMOGLOBIN 29.5 pg (25-34); MEAN CORPUSCULAR HGB CONC 34.8 g/dl (32-36); RED BLOOD COUNT 2.71 M/uL (4.7-6.1); WHITE BLOOD COUNT 3.67 K/uL (4.8-10.8)
[2016-11-03] MEDS: CEFTRIAXONE SOD INJ 1 GM in DEXTROSE 5% ADD-VANTAGE 50ML 50 ML IV SCH (05:43)
[2016-11-03 05:54] LABS: MEAN PLATELET VOLUME 11.3 fL (7.4-10.4); PLATELET COUNT 80 K/uL (130-400)
[2016-11-03 06:25] LABS: BUN/CREATININE RATIO 9.7 (10-20); CALCIUM 6.2 mg/dl (8.5-10.1); CREATININE 9.6 mg/dl (0.60-1.40); POTASSIUM 3.4 mmol/L (3.5-5.1)
[2016-11-03] MEDS: NEPHROCAPS PO SCH (07:51)
[2016-11-03] MEDS: GABAPENTIN 100 MG CAP PO SCH ×2 (07:51→19:56)
--- NOTE | 2016-11-03 09:12 | Progress Note ---
Subjective Date of Service: Nov 03, 2016. Subjective Pt evaluation today including: conversation w/ patient, chart review, lab review Voiding: alonso catheter in place (patent, draining phillips colored urine ) 76 yo male with ARF, bilateral hydro, BPH, elevated PSA. Pt denies pain this morning. Alonso remains in place draining phillips colored urine. Cr is stable at 9.6. Problem List Medical Problems: (1) Acidosis Status: Acute (2) Acute renal failure Status: Acute (3) Anemia Status: Acute (4) Hematuria Status: Acute (5) Hypothermia Status: Acute (6) Weakness Status: Acute Review of Systems Constitutional: No chills, No fever Cardiac: No chest pain Abdomen: No nausea, No pain, No vomiting Male : + hematuria Objective Vital Signs Date Time Temp Pulse Resp B/P Pulse Ox O2 Delivery O2 Flow Rate FiO2 11/03/16 07:30 36.7 98 22 155/88 98 Nasal Cannula 1.0 11/03/16 04:00 Nasal Cannula 1.0 11/03/16 03:47 36.9 80 20 152/79 99 Nasal Cannula 1.0 11/02/16 23:59 Nasal Cannula 1.0 11/02/16 23:44 36.9 89 20 158/86 98 Nasal Cannula 1.0 11/02/16 20:00 100 Nasal Cannula 1.0 11/02/16 19:25 36.5 98 18 148/91 100 Nasal Cannula 2.0 11/02/16 15:52 36.7 80 19 150/79 100 Nasal Cannula 1.0 11/02/16 15:30 100 Nasal Cannula 1.0 11/02/16 12:00 Nasal Cannula 2.0 11/02/16 12:00 36.5 86 20 140/79 100 Nasal Cannula 2.0 Physical Exam General Appearance: no apparent distress Eyes: normal inspection ENT: hearing grossly normal Neck: no JVD Respiratory/Chest: no respiratory distress, no accessory muscle use Cardiovascular: no JVD Extremities: normal inspection Neurologic/Psychiatric: alert, normal mood/affect, oriented x 3 Skin: normal color Laboratory Results Last 24 Hours Test 11/03/16 05:06 White Blood Count 3.67 K/uL Red Blood Count 2.71 M/uL Hemoglobin 8.0 g/dL Hematocrit 23.0 % Mean Corpuscular Volume 84.9 fL Mean Corpuscular Hemoglobin 29.5 pg Mean Corpuscular Hemoglobin Concent 34.8 g/dl RDW Standard Deviation 46.2 fL RDW Coefficient of Variation 14.8 % Platelet Count 80 K/uL Mean Platelet Volume 11.3 fL Sodium Level 141 mmol/L Potassium Level 3.4 mmol/L Chloride Level 110 mmol/L Carbon Dioxide Level 16 mmol/L Anion Gap 15.0 mmol/L Blood Urea Nitrogen 93 mg/dl Creatinine 9.60 mg/dl Est Creatinine Clear Calc Drug Dose 7.8 ml/min Estimated GFR () 5.5 Estimated GFR (Non- 4.8 BUN/Creatinine Ratio 9.7 Random Glucose 97 mg/dl Calcium Level 6.2 mg/dl Assessment and Plan A/P: ARF, bilateral hydro, elevated PSA, BPH AFVSS. Recommend leaving alonso catheter in place for now. Can hand irrigate PRN for worsening hematuria. Recommend repeating a renal u/s tomorrow or Thursday. Would not expect resolution of bilateral hydro in this setting, however some improvement would indicate hydro likely secondary to MACE making ureteral stent placement less likely to be effective. Will eventually need a cysto for further evaluation as well as a prostate bx at some point to r/o prostate cancer. Will continue to follow along with primary service at this time. Plan for repeat renal u/s tomorrow or Thursday.
--- NOTE | 2016-11-03 09:40 | Nephrology Progress Note ---
Nephrology Progress Note Date of Service Nov 03, 2016. Chief Complaint MARY Subjective No acute events overnight. No complaints this morning. Alonso continues to drain bloody urine. No fevers or chills. Appetite fair. Denies shortness of breath. Denies pain. Mr. Yung was admitted to the hospital with kidney failure due to obstruction. Renal US revealed bilateral hydronephrosis, BPH and a bladder stone. He underwent R IJ THC placement 10/31/16 and had his 1st HD treatment. He was dialyzed yesterday without complication. 2 units PRBC were given during HD yesterday. Review of Systems A complete review of systems was performed. Pertinent positives are noted above. All other systems are negative. Vital Signs Last 8 Hrs Date Time Temp Pulse Resp B/P Pulse Ox O2 Delivery O2 Flow Rate FiO2 11/03/16 07:30 36.7 98 22 155/88 98 Nasal Cannula 1.0 11/03/16 04:00 Nasal Cannula 1.0 11/03/16 03:47 36.9 80 20 152/79 99 Nasal Cannula 1.0 I & O 24-Hour Column 11/03/16 07:59 Intake Total 2763 ml Output Total 2200 ml Balance 563 ml Last Recorded Weight Weight (Kilograms): 100.900 Physical Exam General Appearance: WD/WN, no apparent distress Head: normocephalic, atraumatic Eyes: normal inspection, sclerae normal ENT: normal ENT inspection, pharynx normal Neck: supple, no JVD, + pertinent finding ([facility] HD permcath) Respiratory/Chest: lungs clear, no respiratory distress, no accessory muscle use Cardiovascular: regular rate, rhythm, no gallop Abdomen/GI: non tender, soft Genitourinary - Male: + pertinent finding (Alonso draining bloody urine) Extremities/Musculoskelatal: normal inspection, no pedal edema Neurologic/Psych: alert, oriented x 3 Family History Patient reports no known family medical history. 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) Laboratory Results Past 24 Hours 11/03/16 05:06 11/03/16 05:06 Test 11/03/16 05:06 Red Blood Count 2.71 M/uL (4.7-6.1) Mean Corpuscular Volume 84.9 fL (80-100) Mean Corpuscular Hemoglobin 29.5 pg (25-34) Mean Corpuscular Hemoglobin Concent 34.8 g/dl (32-36) RDW Standard Deviation 46.2 fL (36.4-46.3) RDW Coefficient of Variation 14.8 % (11.5-14.5) Mean Platelet Volume 11.3 fL (7.4-10.4) Anion Gap 15.0 mmol/L (3-11) Est Creatinine Clear Calc Drug Dose 7.8 ml/min Estimated GFR () 5.5 Estimated GFR (Non- 4.8 BUN/Creatinine Ratio 9.7 (10-20) Calcium Level 6.2 mg/dl (8.5-10.1) Allergies Coded Allergies: No Known Allergies (Unverified , 10/29/16) Medications Current Inpatient Medications Medications (Trade) Dose Ordered Sig/Sonia Route Start Time Stop Time Status Last Admin Dose Admin Acetaminophen (Tylenol Tab) 650 mg Q4H PRN PO 10/29/16 16:00 11/28/16 15:59 Ondansetron HCl 4 mg 4 mg Q6H PRN IV 10/29/16 16:00 11/28/16 15:59 10/31/16 17:39 4 MG Ceftriaxone Sodium/Dextrose (Rocephin Inj/ Dextrose Add-[place] 50ML) 50 ml @ 100 mls/hr Q24H IV 10/30/16 05:30 11/09/16 05:29 11/03/16 05:43 100 MLS/HR Calcium Carbonate (Tums Chew Tab) 500 mg ACHS PRN PO 10/30/16 10:00 11/29/16 09:59 Amlodipine Besylate 10 mg 10 mg DAILY PO 10/31/16 09:00 11/30/16 08:59 Future Hold Sodium Chloride (Nss 1000ml) 1,000 ml @ 80 mls/hr [id number] IV 10/30/16 12:15 11/29/16 12:14 11/03/16 04:15 80 MLS/HR Calcitriol (Rocaltrol Cap) 0.5 mcg TuThSa@0900 PO 11/01/16 09:00 12/01/16 08:59 11/01/16 14:10 0.5 MCG Oxycodone/ Acetaminophen FOR MODERATE PAIN ... Q4H PRN PO 10/31/16 08:15 11/14/16 08:14 Pantoprazole Sodium/Syringe (Protonix Inj/ Syringe) 10 ml @ 5 mls/min DAILY@11 IV 10/31/16 11:00 11/30/16 10:59 11/02/16 11:00 5 MLS/MIN Vitamin B Complex/ Vit C/Folic Acid (Nephrocaps) 1 cap QAM PO 11/01/16 09:00 12/01/16 08:59 11/03/16 07:51 1 CAP Heparin Sodium (Porcine) (No Heparin In Dialysis) 1 ea TODAY@0800 N/A 11/03/16 08:00 11/03/16 23:59 Gabapentin (Neurontin Cap) 100 mg BID PO 11/02/16 21:00 12/02/16 20:59 11/03/16 07:51 100 MG Impression (1) ESRD needing dialysis (2) Hyperkalemia, diminished renal excretion (3) Metabolic acidosis with increased anion gap and reduced excretion of inorganic acids (4) Secondary hyperparathyroidism of renal origin (5) Anemia (6) Hematuria (7) Vitamin D deficiency Mr. Yung presented to the hospital with 6 month h/o hematuria, progressive weight loss, recent worsening shortness of breath, anorexia nausea. On admission he was found to be anemic with hemoglobin 6.7, renal impairment with creatinine 18 and BUN 192. No prior h/o CKD. Renal US showed bilateral severe hydronephrosis with significant cortical atrophy and bladder mass. He has been uremic seems to be for long time as indicated by significant weight loss, anorexia, nausea and generalized weakness. 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 RIJ HD permcath placed 09/30/16. First hemodialysis treatment performed on 10/31/16. Treatment was complicated by intradialytic hypotension. Second treatment completed on 11/01/16 without complications. No history of diabetes or coronary artery disease. History of hypertension but has not been taking any medications were following with any physician for 10 years. Initially, blood pressure improved with amlodipine but medication was held this morning. Recommendations END STAGE RENAL DISEASE: -- Plan HD today for additional UF and treatment. Orders entered into EMR. -- Will attempt 2 L UF w/ HD. Dialysis will be performed heparin free -- Protect left arm for AVF. Awaiting further vascular surgery input -- assistant guest services manager consulted to set up outpatient dialysis in [place] BPH / BLADDER MASS / BLADDER STONE: -- Urology recommendations have been reviewed. Patient will require follow up renal US this coming week to determine whether hydronephrosis has improved following alonso catheter placement. This will help to determine whether ureteral stents will be needed -- Patient will likely require cystoscopy and prostate biopsy ANEMIA: -- Two units PRBC transfused during HD 11/01/16 -- Procrit 4000 u today with HD BONE & MINERAL METABOLISM: -- Patient has elevated PTH. He has been started on calcitriol -- Tums one tablet with each male as a phosphate binder
[2016-11-03] MEDS ORDERED: EPOETIN ALFA 4000 UNITS/ML VIAL IV SCH (11:00)
--- NOTE | 2016-11-03 11:13 | Hospitalist Progress Note ---
Hospitalist Progress Note Date of Service Nov 03, 2016. (Vonnie Rodgers ., ZACARIASC) Subjective Pt evaluation today including: conversation w/ patient, physical exam, chart review, lab review, review of studies, review of inpatient medication list Pain: None PO Intake: Tolerating PO diet Voiding: alonso catheter in place Patient denies any new complaints. He states that he has some burning pain in his feet bilaterally, but this is chronic. He also reports tingling in his feet , especially on the left side, which he states again is chronic. He denies any lightheadedness or syncope. Alonso catheter is in place with gross hematuria. The patient denies fevers, chills, sweats, chest pain, palpitations, claudication, cough, wheezing, shortness of breath, nausea, vomiting, abdominal pain, dysuria, urinary retention, paralysis, and motor weakness. Additional Comments: See HPI for pertinent positives and negatives. All other systems reviewed and negative. (Vonnie Rodgers ., ZACARIASC) Objective Vital Signs Date Time Temp Pulse Resp B/P Pulse Ox O2 Delivery O2 Flow Rate FiO2 11/03/16 07:30 36.7 98 22 155/88 98 Nasal Cannula 1.0 11/03/16 04:00 Nasal Cannula 1.0 11/03/16 03:47 36.9 80 20 152/79 99 Nasal Cannula 1.0 11/02/16 23:59 Nasal Cannula 1.0 11/02/16 23:44 36.9 89 20 158/86 98 Nasal Cannula 1.0 11/02/16 20:00 100 Nasal Cannula 1.0 11/02/16 19:25 36.5 98 18 148/91 100 Nasal Cannula 2.0 11/02/16 15:52 36.7 80 19 150/79 100 Nasal Cannula 1.0 11/02/16 15:30 100 Nasal Cannula 1.0 11/02/16 12:00 Nasal Cannula 2.0 11/02/16 12:00 36.5 86 20 140/79 100 Nasal Cannula 2.0 (Vonnie Rodgers ., ZACARIASC) Physical Exam General Appearance: WD/WN, no apparent distress, + obese, + pertinent finding ( appears fatigued) Eyes: normal inspection, PERRL, sclerae normal ENT: normal ENT inspection, hearing grossly normal, pharynx normal Neck: supple, no JVD, trachea midline Respiratory/Chest: lungs clear, normal breath sounds, no respiratory distress, + decreased breath sounds (bases) Cardiovascular: regular rate, rhythm, no gallop, no murmur Abdomen: normal bowel sounds, non tender, soft, + pertinent finding (gross hematuria in Alonso bag) Extremities: non-tender, normal inspection, no pedal edema Neurologic/Psychiatric: alert, normal mood/affect, oriented x 3 Skin: normal color, warm/dry, no rash (Vonnie Rodgers ., PERLA-C) Laboratory Results Last 24 Hours Test 11/03/16 05:06 White Blood Count 3.67 K/uL Red Blood Count 2.71 M/uL Hemoglobin 8.0 g/dL Hematocrit 23.0 % Mean Corpuscular Volume 84.9 fL Mean Corpuscular Hemoglobin 29.5 pg Mean Corpuscular Hemoglobin Concent 34.8 g/dl RDW Standard Deviation 46.2 fL RDW Coefficient of Variation 14.8 % Platelet Count 80 K/uL Mean Platelet Volume 11.3 fL Sodium Level 141 mmol/L Potassium Level 3.4 mmol/L Chloride Level 110 mmol/L Carbon Dioxide Level 16 mmol/L Anion Gap 15.0 mmol/L Blood Urea Nitrogen 93 mg/dl Creatinine 9.60 mg/dl Est Creatinine Clear Calc Drug Dose 7.8 ml/min Estimated GFR () 5.5 Estimated GFR (Non- 4.8 BUN/Creatinine Ratio 9.7 Random Glucose 97 mg/dl Calcium Level 6.2 mg/dl (Vonnie Rodgers ., PA-C) Assessment and Plan 76 y/o male with a history of chronic obstructive uropathy presents with weakness, DUGGAN, lightheadedness, gross hematuria, and anemia.. Acute renal failure/End stage renal disease--likely secondary to chronic obstructive uropathy -Admitted to med/surg. Transferred to telemetry 10/31 -Permcath placed 10/31 -Started dialysis 10/31 but was ended early due to low BP, tolerated full session of HD on 11/01 -Nephrology consulted, appreciate recs: pt for HD today. Protect left arm for AVF. Awaiting further vascular surgery input -Creatinine 9.6 on 11/03 -Continue to monitor renal function Acute blood loss anemia secondary to hematuria--concerning for bladder cancer -Transfuse 2 units PRBCs on 10/29. Hgb did improve, but dropped back to 7.1 on -Another 2 units PRBCs transfused during dialysis 11/01 -Hgb stable in 8s -Still gross hematuria in Alonso Obstructive uropathy concerning for bladder cancer/mass. Pt reports weight loss over the last several months -Continue Alonso -Urology consulted, appreciate recs: leave Alonso in place. Recommend repeat renal U/S 11/04 or 11/05. Will eventually need cysto and prostate biopsy for further evaluation when stable. Peripheral neuropathy -Continue gabapentin 100 mg PO BID DVT prophylaxis -Chemical prophylaxis contraindicated due to bleeding -TEDS, SCDs Code Status -Level V, DO NOT RESUSCITATE (Vonnie Rodgers, PABlakeC) Reviewed: Pt Seen/Exam by Me, HO Notes, Labs (Nupur West MD) History Physician Anhydrous Ammonia Production Supervisor Supervision Note: I interviewed and examined the patient. Discussed with PERLA Rodgers and agree with findings and plan as documented in the note. Any exceptions or clarifications are listed here: Pt feeling a little better than upon admission, continues with hematuria but no clots, had HD today Vitals reviewed NAD RRR no mgr CTAB unlabored breathing Abd soft NT ND +BS Ext no edema 76 yo male with obstructive uropathy and renal failure requiring HD, enalrged prostate, hematuria and severe anemia. Needs to continue workup to look for CA (prostate vs bladder). PSA 58 -repeat renal US tomorrow and see if Urol needs to place stents, otherwise f/u with Urol for cysto and prostate bx as outpt -continue HD and appreciate Nephrology management -not sure why he's on Rocephin--> no infection present, will d/c -follow H/H and transfuse if < 8 again Documented By: Nupur West (Nupur West MD)
[2016-11-03] MEDS: PANTOprazole INJ 40 MG in SYRINGE 0 ML IV SCH (12:32)
[2016-11-03] MEDS: CALCIUM CARBONATE 500 MG CHEWABLE PO SCH (19:56)
[2016-11-04] VITALS (9 sets, daily range): BP systolic 93–147; BP diastolic 51–85; PULSE 85–113; TEMP 36.4–36.9; O2SAT 95–100
[2016-11-04 06:04] LABS: HEMATOCRIT 23.3 % (42-52); MEAN CORPUSCULAR HEMOGLOBIN 28.8 pg (25-34); MEAN CORPUSCULAR HGB CONC 33.9 g/dl (32-36); MEAN PLATELET VOLUME 12.2 fL (7.4-10.4); PLATELET COUNT 86 K/uL (130-400); RED BLOOD COUNT 2.74 M/uL (4.7-6.1); WHITE BLOOD COUNT 3.11 K/uL (4.8-10.8)
[2016-11-04] MEDS: CEFTRIAXONE SOD INJ 1 GM in DEXTROSE 5% ADD-VANTAGE 50ML 50 ML IV SCH (06:16)
[2016-11-04 06:55] LABS: CALCIUM 6.4 mg/dl (8.5-10.1); MAGNESIUM 1.6 mg/dl (1.8-2.4); POTASSIUM 3.6 mmol/L (3.5-5.1)
[2016-11-04 06:57] LABS: CREATININE 5.6 mg/dl (0.60-1.40)
--- NOTE | 2016-11-04 07:08 | DIAGNOSTIC IMAGING REPORT ---
ULTRASOUND KIDNEYS AND BLADDER CLINICAL HISTORY: Hydronephrosis. COMPARISON STUDY: Abdominal CT dated 10/30/2016. Renal ultrasound dated 10/29/2016. TECHNIQUE: Real-time, grayscale, and color flow sonography of the kidneys and bladder is performed. Images are reviewed in the transverse and longitudinal planes. FINDINGS: Kidneys: The kidneys are markedly atrophic. The right kidney measures 14.7 cm in length and the left kidney measures 15.7 cm. Severe bilateral hydroureteronephrosis is unchanged from previous. Debris is again noted within the renal pelvis bilaterally. No shadowing renal calculi are identified. There is no sonographic evidence of contour deforming renal mass lesion. No perinephric fluid is identified. Bladder: The bladder is decompressed around a Burgos catheter. The bladder wall is markedly thickened. A 1.2 cm bladder calculus is identified. Prostatomegaly is observed. IMPRESSION: 1. The kidneys are markedly atrophic and there is severe bilateral hydroureteronephrosis. This has not significant change from 10/29/16. 2. Although decompressed by Burgos catheter, the bladder wall is markedly thickened. 3. A large bladder calculus is identified. Electronically signed by: Armando Ryan M.D. 11/04/2016 7:07 AM Dictated Date/Time: 11/04/2016 7:04 AM
--- NOTE | 2016-11-04 08:05 | Progress Note ---
Subjective Date of Service: Nov 04, 2016. Subjective Pt evaluation today including: chart review, lab review Voiding: alonso catheter in place (patent, draining phillips colored urine) 76 yo male with ARF, bilateral hydro, BPH, elevated PSA. Pt sleeping this morning and not disturbed. Urine remains phillips colored. H&H of 7.9 and 23.3 this morning. Cr has improved to 5.60 this morning after HD yesterday. The pt did have a repeat renal u/s this morning, which I have reviewed. Unfortunately no improvement in hydro noted. Problem List Medical Problems: (1) Acidosis Status: Acute (2) Acute renal failure Status: Acute (3) Anemia Status: Acute (4) Hematuria Status: Acute (5) Hypothermia Status: Acute (6) Weakness Status: Acute Review of Systems Pt sleeping and not disturbed. Objective Vital Signs Date Time Temp Pulse Resp B/P Pulse Ox O2 Delivery O2 Flow Rate FiO2 11/04/16 04:00 Room Air 11/04/16 04:00 36.9 98 17 140/79 99 Room Air 11/04/16 00:00 36.8 108 16 112/68 99 Room Air 11/03/16 23:59 Room Air 11/03/16 20:00 Room Air 11/03/16 19:31 36.5 85 20 107/66 97 Room Air 11/03/16 19:28 36.6 58 137/87 11/03/16 19:00 66 125/77 11/03/16 18:45 53 107/66 11/03/16 18:30 57 102/69 11/03/16 18:15 74 125/73 11/03/16 18:00 56 118/72 11/03/16 17:45 63 122/69 11/03/16 17:30 64 110/76 11/03/16 17:15 68 108/68 11/03/16 17:00 62 115/71 11/03/16 16:45 63 122/91 11/03/16 16:31 53 119/63 11/03/16 16:15 69 125/65 11/03/16 16:00 Room Air 11/03/16 16:00 62 117/80 11/03/16 15:45 87 113/69 11/03/16 15:30 68 121/71 11/03/16 15:15 76 127/84 11/03/16 15:02 66 132/77 11/03/16 14:55 36.6 74 135/81 11/03/16 12:00 Nasal Cannula 1.0 11/03/16 11:00 36.6 73 20 123/81 100 Room Air Physical Exam General Appearance: no apparent distress Respiratory/Chest: no respiratory distress, no accessory muscle use Neurologic/Psychiatric: + pertinent finding (Pt sleeping with covers over his face this morning. ) Skin: normal color Laboratory Results Last 24 Hours Test 11/04/16 05:16 White Blood Count 3.11 K/uL Red Blood Count 2.74 M/uL Hemoglobin 7.9 g/dL Hematocrit 23.3 % Mean Corpuscular Volume 85.0 fL Mean Corpuscular Hemoglobin 28.8 pg Mean Corpuscular Hemoglobin Concent 33.9 g/dl RDW Standard Deviation 46.2 fL RDW Coefficient of Variation 14.9 % Platelet Count 86 K/uL Mean Platelet Volume 12.2 fL Sodium Level 140 mmol/L Potassium Level 3.6 mmol/L Chloride Level 107 mmol/L Carbon Dioxide Level 22 mmol/L Anion Gap 11.0 mmol/L Blood Urea Nitrogen 45 mg/dl Creatinine 5.60 mg/dl Est Creatinine Clear Calc Drug Dose 13.2 ml/min Estimated GFR () 10.6 Estimated GFR (Non- 9.1 BUN/Creatinine Ratio 8.0 Random Glucose 98 mg/dl Calcium Level 6.4 mg/dl Magnesium Level 1.6 mg/dl Assessment and Plan A/P: ARF, bilateral hydro, elevated PSA, BPH AFVSS. Recommend leaving alonso catheter in place for now. Can hand irrigate PRN for worsening hematuria. Hydronephrosis persists on renal u/s unfortunately. ? as to whether bilateral ureteral stent placement would provide improvement in the pt's renal function at this time. Will discuss further with Dr. Chanel this morning. Will eventually need a cysto for further evaluation as well as a prostate bx at some point to r/o prostate cancer as well. Could be performed at time of stent placement if stents ultimately placed. Will continue to follow along with primary service at this time.
[2016-11-04] MEDS ORDERED: MAGNESIUM SULFATE 1GM / D5W 1 GM in PREMIXED IN D5W 100 ML IV ONE (08:15)
[2016-11-04] MEDS: NEPHROCAPS PO SCH (09:05)
[2016-11-04] MEDS: CALCIUM CARBONATE 500 MG CHEWABLE PO SCH ×3 (09:05→15:09)
[2016-11-04] MEDS: GABAPENTIN 100 MG CAP PO SCH ×2 (09:05→20:42)
[2016-11-04] MEDS: CALCITRIOL 0.25 MCG CAP PO SCH (09:06)
--- NOTE | 2016-11-04 10:31 | Nephrology Progress Note ---
Nephrology Progress Note Date of Service Nov 04, 2016. Chief Complaint MARY Subjective No acute events overnight. No complaints this morning. Reports some weakness. Gross hematuria persists. No clots. Burgos intact. Tolerated HD yesterday, net UF 2 kg. Appetite fair. No fevers. Review of Systems A complete review of systems was performed. Pertinent positives are noted above. All other systems are negative. Vital Signs Last 8 Hrs Date Time Temp Pulse Resp B/P Pulse Ox O2 Delivery O2 Flow Rate FiO2 11/04/16 08:03 36.4 85 9 93/51 98 Room Air 11/04/16 04:00 Room Air 11/04/16 04:00 36.9 98 17 140/79 99 Room Air I & O 24-Hour Column 11/04/16 07:59 Intake Total 1605 ml Output Total 3350 ml Balance -1745 ml Last Recorded Weight Weight (Kilograms): 98.400 Physical Exam General Appearance: WD/WN, no apparent distress Head: normocephalic, atraumatic Eyes: normal inspection, sclerae normal ENT: normal ENT inspection, pharynx normal Neck: supple, no JVD, + pertinent finding (RIJ HD permcath) Respiratory/Chest: lungs clear, no respiratory distress, no accessory muscle use Cardiovascular: regular rate, rhythm, no murmur Abdomen/GI: non tender, soft Genitourinary - Male: + pertinent finding (Burgos draining phillips colored urine) Extremities/Musculoskelatal: normal inspection, + pedal edema Neurologic/Psych: alert, oriented x 3 Family History Patient reports no known family medical history. 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6 mg/dl (1.8-2.4) Allergies Coded Allergies: No Known Allergies (Unverified , 10/29/16) Medications Current Inpatient Medications Medications (Trade) Dose Ordered Sig/Sonia Route Start Time Stop Time Status Last Admin Dose Admin Acetaminophen (Tylenol Tab) 650 mg Q4H PRN PO 10/29/16 16:00 11/28/16 15:59 Ondansetron HCl 4 mg 4 mg Q6H PRN IV 10/29/16 16:00 11/28/16 15:59 10/31/16 17:39 4 MG Ceftriaxone Sodium/Dextrose (Rocephin Inj/ Dextrose Add-[place] 50ML) 50 ml @ 100 mls/hr Q24H IV 10/30/16 05:30 11/09/16 05:29 11/04/16 06:16 100 MLS/HR Amlodipine Besylate (Norvasc Tab) 10 mg DAILY PO 10/31/16 09:00 11/30/16 08:59 Future Hold Calcitriol (Rocaltrol Cap) 0.5 mcg TuThSa@0900 PO 11/01/16 09:00 12/01/16 08:59 11/04/16 09:06 0.5 MCG Oxycodone/ Acetaminophen FOR MODERATE PAIN ... Q4H PRN PO 10/31/16 08:15 11/14/16 08:14 Pantoprazole Sodium/Syringe (Protonix Inj/ Syringe) 10 ml @ 5 mls/min DAILY@11 IV 10/31/16 11:00 11/30/16 10:59 11/03/16 12:32 5 MLS/MIN Vitamin B Complex/ Vit C/Folic Acid (Nephrocaps) 1 cap QAM PO 11/01/16 09:00 12/01/16 08:59 11/04/16 09:05 1 CAP Gabapentin (Neurontin Cap) 100 mg BID PO 11/02/16 21:00 12/02/16 20:59 11/04/16 09:05 100 MG Calcium Carbonate (Tums Chew Tab) 500 mg AC PO 11/03/16 16:15 12/03/16 16:14 11/04/16 09:05 500 MG Impression (1) ESRD needing dialysis (2) Hyperkalemia, diminished renal excretion (3) Metabolic acidosis with increased anion gap and reduced excretion of inorganic acids (4) Secondary hyperparathyroidism of renal origin (5) Anemia (6) Hematuria (7) Vitamin D deficiency Mr. Yung presented to the hospital with 6 month h/o hematuria, progressive weight loss, recent worsening shortness of breath, anorexia nausea. On admission he was found to be anemic with hemoglobin 6.7, renal impairment with creatinine 18 and BUN 192. No prior h/o CKD. Renal US showed bilateral severe hydronephrosis with significant cortical atrophy and bladder mass. He has been uremic seems to be for long time as indicated by significant weight loss, anorexia, nausea and generalized weakness. 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 RIJ HD permcath placed 10/31/16. First hemodialysis treatment performed on 10/31/16. Treatment was complicated by dialytic hypotension. Second treatment completed on 11/01/16 without complications. Burgos continues to drain bloody urine. Repeat US shows persistent bilateral severe hydronephrosis. No history of diabetes or coronary artery disease. History of hypertension but has not been taking any medications were following with any physician for 10 years. Initially, blood pressure improved with amlodipine but medication was held this morning. Recommendations END STAGE RENAL DISEASE: -- Plan HD tomorrow for additional clearance and UF -- Continue to hold heparin with HD -- Protect left arm for AVF -- services coordinator consulted to set up outpatient dialysis in [place], [place] BPH / BLADDER MASS / BLADDER STONE / ELEVATED PSA: -- Persistent BL hydronephrosis -- Patient will require cystoscopy and prostate biopsy -- Awaiting additional recs from urology -- Continue bladder irrigation ANEMIA: -- Two units PRBC transfused during HD 11/01/16 -- Procrit 4000 u with HD yesterday BONE & MINERAL METABOLISM: -- Patient has elevated PTH. He has been started on calcitriol -- Tums one tablet with each male as a phosphate binder
[2016-11-04] MEDS: PANTOprazole INJ 40 MG in SYRINGE 0 ML IV SCH (11:00)
--- NOTE | 2016-11-04 15:32 | Hospitalist Progress Note ---
Hospitalist Progress Note Date of Service Nov 04, 2016. (Vonnie Rodgers ., ZACARIASC) Subjective Pt evaluation today including: conversation w/ patient, conversation w/ family ( and son at bedside), physical exam, chart review, lab review, review of studies, review of inpatient medication list PO Intake: Tolerating PO diet Voiding: alonso catheter in place Patient reports feeling well with no changes from yesterday. He states that he still feels weak and fatigued. Alonso catheter is in place and draining bloody urine. The patient denies fevers, chills, sweats, chest pain, palpitations, claudication, cough, wheezing, shortness of breath, nausea, vomiting, abdominal pain, dysuria, urinary retention, paralysis, new numbness and tingling. Additional Comments: See HPI for pertinent positives and negatives. All other systems reviewed and negative. (Vonnie Rodgers ., PERLA-C) Objective Vital Signs Date Time Temp Pulse Resp B/P Pulse Ox O2 Delivery O2 Flow Rate FiO2 11/04/16 12:19 36.8 93 23 121/85 99 Room Air 11/04/16 12:00 98 Room Air 11/04/16 08:03 36.4 85 9 93/51 98 Room Air 11/04/16 08:00 99 Room Air 11/04/16 04:00 Room Air 11/04/16 04:00 36.9 98 17 140/79 99 Room Air 11/04/16 00:00 36.8 108 16 112/68 99 Room Air 11/03/16 23:59 Room Air 11/03/16 20:00 Room Air 11/03/16 19:31 36.5 85 20 107/66 97 Room Air 11/03/16 19:28 36.6 58 137/87 11/03/16 19:00 66 125/77 11/03/16 18:45 53 107/66 11/03/16 18:30 57 102/69 11/03/16 18:15 74 125/73 11/03/16 18:00 56 118/72 11/03/16 17:45 63 122/69 11/03/16 17:30 64 110/76 11/03/16 17:15 68 108/68 11/03/16 17:00 62 115/71 11/03/16 16:45 63 122/91 11/03/16 16:31 53 119/63 11/03/16 16:15 69 125/65 11/03/16 16:00 Room Air 11/03/16 16:00 62 117/80 11/03/16 15:45 87 113/69 11/03/16 15:30 68 121/71 (Vonnie Rodgers ., PA-C) Physical Exam General Appearance: WD/WN, no apparent distress, + obese, + pertinent finding ( appears fatigued) Eyes: normal inspection, PERRL, EOMI ENT: normal ENT inspection, hearing grossly normal, pharynx normal Neck: supple, no JVD, trachea midline Respiratory/Chest: normal breath sounds, no respiratory distress, + crackles ( bases L>R) Cardiovascular: regular rate, rhythm, no gallop, no murmur Abdomen: normal bowel sounds, non tender, soft, + pertinent finding (gross hematuria in Alonso, possibly slightly lead printer in color than yesterday) Extremities: non-tender, normal inspection, no pedal edema Neurologic/Psychiatric: alert, normal mood/affect, oriented x 3 Skin: normal color, warm/dry, no rash (Vonnie Rodgers ., PA-C) Laboratory Results Last 24 Hours Test 11/04/16 05:16 White Blood Count 3.11 K/uL Red Blood Count 2.74 M/uL Hemoglobin 7.9 g/dL Hematocrit 23.3 % Mean Corpuscular Volume 85.0 fL Mean Corpuscular Hemoglobin 28.8 pg Mean Corpuscular Hemoglobin Concent 33.9 g/dl RDW Standard Deviation 46.2 fL RDW Coefficient of Variation 14.9 % Platelet Count 86 K/uL Mean Platelet Volume 12.2 fL Sodium Level 140 mmol/L Potassium Level 3.6 mmol/L Chloride Level 107 mmol/L Carbon Dioxide Level 22 mmol/L Anion Gap 11.0 mmol/L Blood Urea Nitrogen 45 mg/dl Creatinine 5.60 mg/dl Est Creatinine Clear Calc Drug Dose 13.2 ml/min Estimated GFR () 10.6 Estimated GFR (Non- 9.1 BUN/Creatinine Ratio 8.0 Random Glucose 98 mg/dl Calcium Level 6.4 mg/dl Magnesium Level 1.6 mg/dl (Vonnie Rodgers ., PA-C) Diagnostic Results Reviewed the following studies and agree with interpretation as follows: Patient Name: SRIDEVI GARCIA Unit Number: [id number] Dictated: 11/04/16703 Transcribed: 11/04/16703 EV Printed Date/Time: [~ rep prt dt]/[~ rep prt tm] [~ rep ct labl] - [~ rep ct ivnm] [facility] Radiology Department [place] [id number] Dictated: 11/04/16703 Transcribed: 11/04/16703 EV Printed Date/Time: [~ rep prt dt]/[~ rep prt tm] [~ rep ct labl] - [~ rep ct ivnm] Patient: SRIDEVI GARCIA Address1: [facility] Rec: [id number] Address2: Acct ID: [id number] [facility] Zip: [place] [id number] Date: 1940 Sex: M Room/Bed: [facility] Ref Phy: No Doctor, Assigned SC: Maximus Att Phy: Home Emanuel M.D. Report #: [id number] Anne Marie Phy: No Doctor, Assigned Test: RODRIGO Admit Phy: Clifford Avila D.O. Microbiology Technologist: DERRELL Interpreting Phy: Armando Ryan M.D. Diagnosis: ACUTE RENAL FAILURE, ANEMIA Ordering Phy: Vonnie Rodgers PA-C Service Date: 11/04/16 Admit Date: 10/29/1701/22/17 MNE: [id number] CONF: DICTATED BY: Armando Ryan M.D.]] CC: Vonnie Rodgers .ALF Thomas E., M.D. No Doctor, Assigned Endcc: [~ rep ct add3]] ULTRASOUND KIDNEYS AND BLADDER CLINICAL HISTORY: Hydronephrosis. COMPARISON STUDY: Abdominal CT dated 10/30/2016. Renal ultrasound dated 10/29/2016. TECHNIQUE: Real-time, grayscale, and color flow sonography of the kidneys and bladder is performed. Images are reviewed in the transverse and longitudinal planes. FINDINGS: Kidneys: The kidneys are markedly atrophic. The right kidney measures 14.7 cm in length and the left kidney measures 15.7 cm. Severe bilateral hydroureteronephrosis is unchanged from previous. Debris is again noted within the renal pelvis bilaterally. No shadowing renal calculi are identified. There is no sonographic evidence of contour deforming renal mass lesion. No perinephric fluid is identified. Bladder: The bladder is decompressed around a Alonso catheter. The bladder wall is markedly thickened. A 1.2 cm bladder calculus is identified. Prostatomegaly is observed. IMPRESSION: 1. The kidneys are markedly atrophic and there is severe bilateral hydroureteronephrosis. This has not significant change from 10/29/16. 2. Although decompressed by Alonso catheter, the bladder wall is markedly thickened. 3. A large bladder calculus is identified. Electronically signed by: Armando Ryan M.D. 11/04/2016 7:07 AM Dictated Date/Time: 11/04/2016 7:04 AM The status of this report is Signed. Draft = Not yet reviewed or approved by Radiologist. Signed = Reviewed and approved by Radiologist. <AttendingPhy>Home Emanuel M.D.</AttendingPhy> <FamilyPhy>No Doctor, Assigned</FamilyPhy> <PrimaryPhy>No Doctor, Assigned</PrimaryPhy> <UnitNumber> [id number]</UnitNumber> <VisitNumber>[id number]</VisitNumber> <PatientName> SRIDEVI GARCIA</PatientName> <DateOfBirth>1940</DateOfBirth> <Location> C.2E</Location> <ServiceDate>10/29/16</ServiceDate> <MNE>ESINDI</MNE> < OrderingPhy>Vonnie Rodgers PA-C</OrderingPhy> <OrderingPhyMNE>f rep ord dr schwartz< /OrderingPhyMNE> <DictatingPhyMNE>f rep dict dr schwartz</DictatingPhyMNE> <CCListMNE >f rep ct lana</CCListMNE> <AdmittingPhyMNE>f pt admit dr schwartz</AdmittingPhyMNE> < AttendingPhyMNE>f pt attend dr schwartz</AttendingPhyMNE> <ConsultingPhyMNE>f pt consult dr schwartz</ConsultingPhyMNE> <FamilyPhyMNE>f pt fam dr schwartz</FamilyPhyMNE> <OtherPhyMNE>f pt other dr schwartz</OtherPhyMNE> < PrimaryPhyMNE>f pt prim care dr schwartz</PrimaryPhyMNE> <ReferringPhyMNE>f pt referring dr schwartz</ReferringPhyMNE> (Vonnie Rodgers ., PASpencer) Assessment and Plan 76 y/o male with a history of chronic obstructive uropathy presents with weakness, DUGGAN, lightheadedness, gross hematuria, and anemia.. Acute renal failure/End stage renal disease--likely secondary to chronic obstructive uropathy -Admitted to med/surg. Transferred to telemetry 10/31 -Permcath placed 10/31 -Started dialysis 10/31 but was ended early due to low BP, tolerated full session of HD on 11/01 -Nephrology consulted, appreciate recs: no new recs at this time. Pt due for HD tomorrow -Creatinine 5.6 on 11/04 -Continue to monitor renal function Acute blood loss anemia secondary to hematuria--concerning for bladder cancer -Transfuse 2 units PRBCs on 10/29. Hgb did improve, but dropped back to 7.1 on -Another 2 units PRBCs transfused during dialysis 11/01 -Hgb stable in 8s -Hgb 7.9 on 11/04. Borderline, will observe today and recheck tomorrow am. Transfuse again if continues to drop -Still gross hematuria in Alonso Obstructive uropathy concerning for bladder cancer/mass. Pt reports weight loss over the last several months -Continue Alonso -Urology consulted, appreciate recs: leave Alonso in place. Repeat renal U/S does not show any significant change. No stents at this time. Recommend rechecking PSA in several weeks as may be falsely elevated now. Will eventually need cysto and prostate biopsy for further evaluation when stable as an outpatient. Hypomagnesemia -Magnesium 1.6 on 11/04 -Given magnesium sulfate 1 gm IV x 1 -Recheck tomorrow am Peripheral neuropathy -Continue gabapentin 100 mg PO BID DVT prophylaxis -Chemical prophylaxis contraindicated due to bleeding -TEDS, SCDs Code Status -Level V, DO NOT RESUSCITATE Dispo -PT states pt may need acute rehab if not able to meet physical therapy goals while admitted. Will need to show proficiency on stairs. Has not been ambulating much. (Vonnie Rodgers ., PASpencer) Reviewed: Pt Seen/Exam by Me, KAYLEIGH Notes, Labs (Nupur West MD) History Physician Assembler Equipment Supervision Note: I interviewed and examined the patient. Discussed with PERLA Rodgers and agree with findings and plan as documented in the note. Any exceptions or clarifications are listed here: Pt feeling a little better than upon admission, continues with hematuria but no clots, was OOB to chair today. Discussed with daughter on phone, and son and in room. Vitals reviewed NAD RRR no mgr CTAB unlabored breathing Abd soft NT ND +BS Ext no edema -Alonso in place with phillips colored urine in bag Skin: RTIJ catheter in place without erythema or drainage 76 yo male with obstructive uropathy and renal failure requiring HD, enlarged prostate, hematuria and severe anemia. Needs to continue workup to look for CA (prostate vs bladder). PSA 58 but could be BPH Repeat renal US essentially unchanged despite Alonso placement so ureteral stents won't help and will only cause nidus for infection, otherwise f/u with Urol for cysto and possible prostate bx as outpt. Urine cytology negative for malignant cells on pathology. -continue HD and appreciate Nephrology management-for HD tomorrow -was on Rocephin--> no infection present, will d/c -follow H/H and transfuse if < 8 again -send out with Alonso and will need Urology office f/u, repeat PSA in a few weeks -Nephrology f/u for HD MWF -PT/OT evals and will definitely need home RN and needs to get established with a PCP Documented By: Nupur West (Nupur West MD)
[2016-11-05] VITALS (27 sets, daily range): BP systolic 95–148; BP diastolic 48–91; PULSE 71–109; TEMP 36.6–37.3; O2SAT 94–99
[2016-11-05 07:25] LABS: HEMATOCRIT 21.3 % (42-52); MEAN CELL VOLUME 85.2 fL (80-100); MEAN CORPUSCULAR HEMOGLOBIN 29.2 pg (25-34); MEAN CORPUSCULAR HGB CONC 34.3 g/dl (32-36); WHITE BLOOD COUNT 3.47 K/uL (4.8-10.8)
[2016-11-05 07:39] LABS: MEAN PLATELET VOLUME 10.7 fL (7.4-10.4); PLATELET COUNT 82 K/uL (130-400)
[2016-11-05] MEDS: CALCIUM CARBONATE 500 MG CHEWABLE PO SCH ×3 (08:02→15:34)
[2016-11-05] MEDS: NEPHROCAPS PO SCH (08:02)
[2016-11-05] MEDS: GABAPENTIN 100 MG CAP PO SCH ×2 (08:02→20:39)
[2016-11-05 08:13] LABS: BUN/CREATININE RATIO 9.9 (10-20); CALCIUM 6.3 mg/dl (8.5-10.1); CREATININE 6.6 mg/dl (0.60-1.40); MAGNESIUM 1.7 mg/dl (1.8-2.4); POTASSIUM 3.6 mmol/L (3.5-5.1)
--- NOTE | 2016-11-05 08:30 | Progress Note ---
Subjective Date of Service: Nov 05, 2016. Subjective Pt evaluation today including: conversation w/ patient, chart review, lab review Voiding: alonso catheter in place (patent, draining light phillips colored urine ) 76 yo male with ARF, bilateral hydro, BPH, elevated PSA. Urine remains phillips colored this morning, but junior bookkeeper in color. H&H trending down at 7.3 and 21.3 this morning. Cr trending up at 6.6. HD 2 days ago. Pt denies pain this morning. Problem List Medical Problems: (1) Acidosis Status: Acute (2) Acute renal failure Status: Acute (3) Anemia Status: Acute (4) Hematuria Status: Acute (5) Hypothermia Status: Acute (6) Weakness Status: Acute Review of Systems Constitutional: No chills, No fever Respiratory: No shortness of breath Cardiac: No chest pain Abdomen: No nausea, No pain, No vomiting Male : No dysuria, No hematuria Heme: No abnormal bleeding/bruising Objective Vital Signs Date Time Temp Pulse Resp B/P Pulse Ox O2 Delivery O2 Flow Rate FiO2 11/05/16 04:00 36.7 105 16 100/48 98 Room Air 11/05/16 04:00 Room Air 11/05/16 00:00 37.0 109 18 145/82 96 Room Air 11/04/16 23:59 Room Air 11/04/16 20:00 Room Air 11/04/16 19:05 36.8 113 22 118/73 100 Room Air 11/04/16 16:00 95 Room Air 11/04/16 15:09 36.8 86 17 147/72 98 Room Air 11/04/16 12:19 36.8 93 23 121/85 99 Room Air 11/04/16 12:00 98 Room Air Physical Exam General Appearance: no apparent distress Eyes: normal inspection ENT: hearing grossly normal Neck: no JVD Respiratory/Chest: no respiratory distress, no accessory muscle use Cardiovascular: no JVD Extremities: normal inspection Neurologic/Psychiatric: alert, normal mood/affect, oriented x 3 Skin: normal color Laboratory Results Last 24 Hours Test 11/05/16 07:14 11/05/16 07:51 White Blood Count 3.47 K/uL Red Blood Count 2.50 M/uL Hemoglobin 7.3 g/dL Hematocrit 21.3 % Mean Corpuscular Volume 85.2 fL Mean Corpuscular Hemoglobin 29.2 pg Mean Corpuscular Hemoglobin Concent 34.3 g/dl RDW Standard Deviation 45.7 fL RDW Coefficient of Variation 14.5 % Platelet Count 82 K/uL Mean Platelet Volume 10.7 fL Sodium Level 137 mmol/L Potassium Level 3.6 mmol/L Chloride Level 104 mmol/L Carbon Dioxide Level 20 mmol/L Anion Gap 13.0 mmol/L Blood Urea Nitrogen 65 mg/dl Creatinine 6.60 mg/dl Est Creatinine Clear Calc Drug Dose 11.4 ml/min Estimated GFR () 8.7 Estimated GFR (Non- 7.5 BUN/Creatinine Ratio 9.9 Random Glucose 92 mg/dl Calcium Level 6.3 mg/dl Magnesium Level 1.7 mg/dl Assessment and Plan A/P: ARF, bilateral hydro, elevated PSA, BPH Recommend leaving alonso catheter in place for now. Can hand irrigate PRN for worsening hematuria. Continue to monitor H&H. Supportive management with transfusions per primary service. Hydronephrosis persists on renal u/s unfortunately. Bilateral ureteral stent placement not likely to be of any benefit at this point. Will avoid for now. Will eventually need an outpatient cysto for further evaluation of BPH and gross hematuria. As for his elevated PSA. May be elevated in the setting of UR and MACE. Consider repeating in a few weeks. If it remains high, would recommend prostate bx and prostate cancer remains a diagnosis of exclusion. Will continue to follow along with primary service at this time.
--- NOTE | 2016-11-05 09:24 | Nephrology Progress Note ---
Nephrology Progress Note Date of Service Nov 05, 2016. Chief Complaint MARY Subjective No acute events overnight. No complaints this morning. Denies pain. Denies shortness of breath. No fevers or chills. Appetite good. Urine pale phillips colored. Burgos intact. Mr. Yung is anxious to be discharged home. Review of Systems A complete review of systems was performed. Pertinent positives are noted above. All other systems are negative. Vital Signs Last 8 Hrs Date Time Temp Pulse Resp B/P Pulse Ox O2 Delivery O2 Flow Rate FiO2 11/05/16 04:00 36.7 105 16 100/48 98 Room Air 11/05/16 04:00 Room Air I & O 24-Hour Column 11/05/16 07:59 Intake Total 700 ml Output Total 1425 ml Balance -725 ml Last Recorded Weight Weight (Kilograms): 103.200 Physical Exam General Appearance: WD/WN, no apparent distress Head: normocephalic, atraumatic Eyes: normal inspection, sclerae normal ENT: normal ENT inspection, pharynx normal Neck: supple, no JVD, + pertinent finding (RIJ HD permcath) Respiratory/Chest: lungs clear, no respiratory distress, no accessory muscle use Cardiovascular: regular rate, rhythm, no gallop Abdomen/GI: non tender, soft Genitourinary - Male: + pertinent finding (Burgos draining phillips colored urine) Extremities/Musculoskelatal: normal inspection, no pedal edema Neurologic/Psych: alert, oriented x 3 Family History Patient reports no known family medical history. 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) Laboratory Results Past 24 Hours 11/05/16 07:14 11/05/16 07:14 Test 11/05/16 07:14 11/05/16 08:23 Red Blood Count 2.50 M/uL (4.7-6.1) Mean Corpuscular Volume 85.2 fL (80-100) Mean Corpuscular Hemoglobin 29.2 pg (25-34) Mean Corpuscular Hemoglobin Concent 34.3 g/dl (32-36) RDW Standard Deviation 45.7 fL (36.4-46.3) RDW Coefficient of Variation 14.5 % (11.5-14.5) Mean Platelet Volume 10.7 fL (7.4-10.4) Anion Gap 13.0 mmol/L (3-11) Est Creatinine Clear Calc Drug Dose 11.4 ml/min Estimated GFR () 8.7 Estimated GFR (Non- 7.5 BUN/Creatinine Ratio 9.9 (10-20) Calcium Level 6.3 mg/dl (8.5-10.1) Magnesium Level 1.7 mg/dl (1.8-2.4) Allergies Coded Allergies: No Known Allergies (Unverified , 10/29/16) Medications Current Inpatient Medications Medications (Trade) Dose Ordered Sig/Sonia Route Start Time Stop Time Status Last Admin Dose Admin Acetaminophen (Tylenol Tab) 650 mg Q4H PRN PO 10/29/16 16:00 11/28/16 15:59 Ondansetron HCl (Zofran Inj) 4 mg Q6H PRN IV 10/29/16 16:00 11/28/16 15:59 10/31/16 17:39 4 MG Amlodipine Besylate (Norvasc Tab) 10 mg DAILY PO 10/31/16 09:00 11/30/16 08:59 Future Hold Calcitriol (Rocaltrol Cap) 0.5 mcg TuThSa@0900 PO 11/01/16 09:00 12/01/16 08:59 11/04/16 09:06 0.5 MCG Oxycodone/ Acetaminophen FOR MODERATE PAIN ... Q4H PRN PO 10/31/16 08:15 11/14/16 08:14 Pantoprazole Sodium/Syringe (Protonix Inj/ Syringe) 10 ml @ 5 mls/min DAILY@11 IV 10/31/16 11:00 11/30/16 10:59 11/04/16 11:00 5 MLS/MIN Vitamin B Complex/ Vit C/Folic Acid (Nephrocaps) 1 cap QAM PO 11/01/16 09:00 12/01/16 08:59 11/05/16 08:02 1 CAP Gabapentin (Neurontin Cap) 100 mg BID PO 11/02/16 21:00 12/02/16 20:59 11/05/16 08:02 100 MG Calcium Carbonate (Tums Chew Tab) 500 mg AC PO 11/03/16 16:15 12/03/16 16:14 11/05/16 08:02 500 MG Impression (1) ESRD needing dialysis (2) Hyperkalemia, diminished renal excretion (3) Metabolic acidosis with increased anion gap and reduced excretion of inorganic acids (4) Secondary hyperparathyroidism of renal origin (5) Anemia (6) Hematuria (7) Vitamin D deficiency Mr. Yung presented to the hospital with 6 month h/o hematuria, progressive weight loss, recent worsening shortness of breath, anorexia nausea. On admission he was found to be anemic with hemoglobin 6.7, renal impairment with creatinine 18 and BUN 192. No prior h/o CKD. Renal US showed bilateral severe hydronephrosis with significant cortical atrophy and bladder mass. He has been uremic seems to be for long time as indicated by significant weight loss, anorexia, nausea and generalized weakness. 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 RIJ HD permcath placed 10/31/16. First hemodialysis treatment performed on 10/31/16. Treatment was complicated by dialytic hypotension. Second treatment completed on 11/01/16 without complications. Burgos continues to drain bloody urine. Repeat US shows persistent bilateral severe hydronephrosis. No history of diabetes or coronary artery disease. History of hypertension but has not been taking any medications were following with any physician for 10 years. Recommendations END STAGE RENAL DISEASE: -- No evidence of renal recovery -- Plan HD today for clearance and additional UF (gaol ~2 kg) -- Continue to hold heparin with HD for hematuria -- Protect left arm for AVF -- child and family services specialist consulted to set up outpatient dialysis in [place], [place] BPH / BLADDER MASS / BLADDER STONE / ELEVATED PSA: -- Persistent BL hydronephrosis -- Patient will require cystoscopy and prostate biopsy -- Awaiting additional recs from urology. Discussed with WILLIAM Sands this AM. ANEMIA: -- Two units PRBC transfused during HD 11/01/16 -- Procrit 4000 u given on Thursday -- Hemoglobin trending down. Suggest additional 1 u PRBC with HD today. BONE & MINERAL METABOLISM: -- Patient has elevated PTH. He has been started on calcitriol -- Tums one tablet with each male as a phosphate binder
[2016-11-05] MEDS: PANTOprazole INJ 40 MG in SYRINGE 0 ML IV SCH (11:03)
--- NOTE | 2016-11-05 13:14 | Hospitalist Progress Note ---
Hospitalist Progress Note Date of Service Nov 05, 2016. (Vonnie Rodgers ., ZACARIASC) Subjective Pt evaluation today including: conversation w/ patient, physical exam, chart review, lab review, review of inpatient medication list PO Intake: Tolerating PO diet Voiding: alonso catheter in place (gross hematuria) Patient reports feeling the same as yesterday. Reports weakness and fatigue. He denies any new complaints. Alonso catheter is in place with gross hematuria. The patient denies fevers, chills, sweats, chest pain, palpitations, claudication, cough, wheezing, shortness of breath, nausea, vomiting, abdominal pain, dysuria, urinary retention, paralysis, numbness and tingling. Additional Comments: See HPI for pertinent positives and negatives. All other systems reviewed and negative. (Vonnie Rodgers, ZACARIASC) Objective Vital Signs Date Time Temp Pulse Resp B/P Pulse Ox O2 Delivery O2 Flow Rate FiO2 11/05/16 12:30 81 120/74 11/05/16 12:15 72 106/63 11/05/16 12:06 36.8 90 20 120/72 99 Room Air 11/05/16 12:03 76 119/68 11/05/16 12:00 82 117/77 11/05/16 11:45 76 123/70 11/05/16 11:30 77 111/68 11/05/16 11:20 82 124/64 11/05/16 11:15 37.2 90 129/74 11/05/16 10:21 36.9 96 16 99/75 98 Room Air 11/05/16 08:00 Room Air 11/05/16 04:00 36.7 105 16 100/48 98 Room Air 11/05/16 04:00 Room Air 11/05/16 00:00 37.0 109 18 145/82 96 Room Air 11/04/16 23:59 Room Air 11/04/16 20:00 Room Air 11/04/16 19:05 36.8 113 22 118/73 100 Room Air 11/04/16 16:00 95 Room Air 11/04/16 15:09 36.8 86 17 147/72 98 Room Air (Vonnie Rodgers PA-C) Physical Exam General Appearance: WD/WN, no apparent distress, + obese, + pertinent finding ( appears fatigued. examined while on dialysis) Eyes: normal inspection, PERRL, EOMI ENT: normal ENT inspection, hearing grossly normal, pharynx normal Neck: supple, no JVD, trachea midline Respiratory/Chest: lungs clear, normal breath sounds, no respiratory distress, + decreased breath sounds Cardiovascular: regular rate, rhythm, no gallop, no murmur Abdomen: normal bowel sounds, non tender, soft Extremities: non-tender, normal inspection, no pedal edema Neurologic/Psychiatric: alert, normal mood/affect, oriented x 3 Skin: normal color, warm/dry, no rash (Vonnie Rodgers ., PA-C) Laboratory Results Last 24 Hours Test 11/05/16 07:14 11/05/16 08:23 White Blood Count 3.47 K/uL Red Blood Count 2.50 M/uL Hemoglobin 7.3 g/dL Hematocrit 21.3 % Mean Corpuscular Volume 85.2 fL Mean Corpuscular Hemoglobin 29.2 pg Mean Corpuscular Hemoglobin Concent 34.3 g/dl RDW Standard Deviation 45.7 fL RDW Coefficient of Variation 14.5 % Platelet Count 82 K/uL Mean Platelet Volume 10.7 fL Sodium Level 137 mmol/L Potassium Level 3.6 mmol/L Chloride Level 104 mmol/L Carbon Dioxide Level 20 mmol/L Anion Gap 13.0 mmol/L Blood Urea Nitrogen 65 mg/dl Creatinine 6.60 mg/dl Est Creatinine Clear Calc Drug Dose 11.4 ml/min Estimated GFR () 8.7 Estimated GFR (Non- 7.5 BUN/Creatinine Ratio 9.9 Random Glucose 92 mg/dl Calcium Level 6.3 mg/dl Magnesium Level 1.7 mg/dl Vitamin B12 Level 420 pg/mL (Vonnie Rodgers ., PA-C) Assessment and Plan 76 y/o male with a history of chronic obstructive uropathy presents with weakness, DUGGAN, lightheadedness, gross hematuria, and anemia.. Acute renal failure/End stage renal disease--likely secondary to chronic obstructive uropathy -Admitted to med/surg. Transferred to telemetry 10/31 -Permcath placed 10/31 -Started dialysis 10/31 but was ended early due to low BP, tolerated full session of HD on 11/01 -Nephrology consulted, appreciate recs: Pt for HD today. Recommend transfusing 1 unit PRBC during HD. -Creatinine 6.6 on 11/05 -Continue to monitor renal function Acute blood loss anemia secondary to hematuria--concerning for bladder cancer -Transfuse 2 units PRBCs on 10/29. Hgb did improve, but dropped back to 7.1 on -Another 2 units PRBCs transfused during dialysis 11/01 -Hgb 7.3 on 11/05, will transfuse 1 unit PRBC during HD -Still gross hematuria in Alonso -Vitamin B12 checked, WNL Obstructive uropathy concerning for bladder cancer/mass. Pt reports weight loss over the last several months -Continue Alonso -Urology consulted, appreciate recs: leave Alonso in place. Repeat renal U/S does not show any significant change. No stents at this time. Recommend rechecking PSA in several weeks as may be falsely elevated now. Will eventually need cysto and prostate biopsy for further evaluation when stable as an outpatient. Hypomagnesemia--ongoing -Magnesium 1.6 on 11/04 -Given magnesium sulfate 1 gm IV x 1 -Magnesium 1.7 on 11/05. Give magnesium sulfate 1 gm IV x 1 again, will recheck tomorrow am Peripheral neuropathy -Continue gabapentin 100 mg PO BID DVT prophylaxis -Chemical prophylaxis contraindicated due to bleeding -TEDS, SCDs Code Status -Level V, DO NOT RESUSCITATE Dispo -PT states pt may need acute rehab if not able to meet physical therapy goals while admitted. Will need to show proficiency on stairs. Has not been ambulating much. (Vonnie Rodgers ., ALF) History Physician Business Services Clerk Supervision Note: I interviewed and examined the patient. Discussed with PERLA Rodgers and agree with findings and plan as documented in the note. Any exceptions or clarifications are listed here: Pt feeling a little better than upon admission, continues with hematuria but no clots. Urology performed bedside cystoscopy and prostate bx this evening. Vitals reviewed NAD RRR no mgr CTAB unlabored breathing Abd soft NT ND +BS Ext no edema -Alonso in place with phillips colored urine in bag Skin: RTIJ catheter in place without erythema or drainage 76 yo male with obstructive uropathy and renal failure requiring HD, enlarged prostate, hematuria and severe anemia secondary to inflammatory cystitis. Repeat renal US essentially unchanged despite Alonso placement so ureteral stents won't help and will only cause nidus for infection - workup to look for CA (prostate vs bladder). PSA 58 but could be BPH--> f/u pathology from prostate bx performed 11/05/16 -started on finasteride and Cipro pre and post-op biopsy -f/u with Urol as outpt - Urine cytology negative for malignant cells on pathology. -continue HD and appreciate Nephrology management-for HD MWF -was on Rocephin--> no infection present, will d/c -follow H/H and transfuse with HD if < 8 -send out with Alonso and will need Urology office f/u, repeat PSA in a few weeks -PT/OT evals and will definitely need home RN and needs to get established with a PCP Documented By: Nupur West (Nupur West MD)
[2016-11-05] MEDS ORDERED: MAGNESIUM SULFATE 1GM / D5W 1 GM in PREMIXED IN D5W 100 ML IV ONE (13:30)
[2016-11-05] MEDS ORDERED: SOD PHOSPHATE/SOD BIPHOSPHATE ENEMA 132 ML BTL ONE (16:20)
[2016-11-05] MEDS ORDERED: CIPROFLOXACIN / D5W 200 MG in PREMIXED IN D5W 100 ML IV SCH (17:30)
--- NOTE | 2016-11-05 18:08 | [facility] Post Operative Brief Note ---
Post-OP Note Date of Service Nov 05, 2016. Post-Op Note Elevated PSA, hematuria Same, paraphimosis Reduction paraphimosis, cysto, prostate biopsy Pancho L and R prostate cores 16 fr alonso to gravity Median lobe, bladder stone, inflammatory cystitis. See dictation
[2016-11-05] MEDS: BACITRACIN OINT 15 GM TUBE EXT SCH (20:42)
[2016-11-06] VITALS (7 sets, daily range): BP systolic 96–130; BP diastolic 50–73; PULSE 76–92; TEMP 36.6–37.3; O2SAT 97–100
--- NOTE | 2016-11-06 00:51 | OPERATIVE REPORT ---
DATE OF OPERATION: 11/05/2016 PREOPERATIVE DIAGNOSIS: Elevated PSA, bladder calculus, gross hematuria, urinary retention with bilateral hydronephrosis. POSTOPERATIVE DIAGNOSIS: Same, paraphimosis. PROCEDURE: Reduction of paraphimosis, flexible fiberoptic cystoscopy and transrectal prostate biopsy. SURGEON: Dr. Damir Deleon. ESTIMATED BLOOD LOSS: None. SPECIMENS SENT TO PATHOLOGY: Left and right prostate cores. DRAINS LEFT IN PLACE: Include a 16-Fijian Burgos catheter to gravity drainage. COMPLICATIONS: None. FINDINGS: Enlarged median lobe with bladder stone, inflammatory cystitis. BRIEF HISTORY: Mr. Yung is a 76-year-old male who has been seen by our service for bilateral hydronephrosis, bladder outlet obstruction and elevated PSA. Please see previous urology consultations and notes for previous details. Of note, the patient has an elevated PSA of 58. The patient has bilateral hydronephrosis and renal failure, for which he is currently on hemodialysis. Seeing the appearance of his kidneys on CT scan that is with little functional parenchyma and significant bilateral hydro, it is expected that the patient is going to require dialysis regardless of consideration of bilateral stent placement. I would suspect that the etiology of his findings is chronic bladder outlet obstruction as he has undergone a previous TURP and appears to have regrowth of the median lobe on imaging as well as the bladder stone, consistent with bladder outlet obstruction. Due to his elevated PSA, there is some concern over the possibility of prostate cancer. In addition, his hematuria is felt to be possibly the etiology of his persistent acute anemia, although seeing that his urine is light pink with small volumes of clots, not requiring continuous bladder irrigation, this seems relatively unlikely and I would suspect insufficient erythropoietin due to his renal failure to be a more likely cause. However, for further evaluation of these conditions, cystoscopy and prostate biopsy is planned at the bedside to allow for prompt elucidation of his ongoing acute inpatient difficulties. Consent obtained and intravenous ciprofloxacin 200 mg provided for antibiotic coverage. Fleet Enema provided by nursing staff with good results. PROCEDURE IN DETAIL: The patient was properly identified and consent was reviewed. Time-out was performed with the nursing staff. Cystoscopy portion of the procedure was performed first. Indwelling Burgos catheter was removed and the patient was noted to have a paraphimosis with some mild skin breakdown and distal penile edema with a phimotic ring distally along the glans. The patient was prepped and phimotic ring was reduced. The nursing staff was made aware for local wound management and monitoring going into the future. A well-lubricated flexible cystoscope was introduced into the bladder. Early open strictures were appreciated in the bulbar urethra and sphincter was bypassed. A grossly enlarged, erythematous and inflamed prostate was appreciated with bilateral lateral lobe hypertrophy, obstructed with kissing lobes and a large median lobe which extended to the dome of the bladder, consistent with the patient's CT scan findings. A rounded mobile bladder stone of approximately 2-3 cm was appreciated behind the median lobe. The bladder was noted to be inflamed and irritated with wide based, bullous edema. These papillary lesions were not felt to be overly suspicious for bladder cancer, but rather inflammatory and due to the patient's bladder outlet obstruction and indwelling Burgos catheter. Ureteral orifices were poorly identified due to the large median lobe at the 6 o'clock position. The prostate was suspected to be the source of slow oozing bleeding due to its friable nature. Bladder was partially distended and then cystoscope was removed. A 16-Fijian Burgos catheter was replaced with 10 mL of sterile water in the balloon. Light pink urine was noted to be freely draining. The patient was then placed on his side in the lateral decubitus position. Using a plastic guide with a well lubricated finger, a digital rectal exam was performed, demonstrating an enlarged rubbery prostate gland. Prostate cores were taken, 3 from the left and 3 from the right. This was well tolerated with minimal bleeding. Inadequate cores were repeated. These were placed in formalin and sent down to pathology for analysis. The patient tolerated the procedure well without difficulties or complications. FOLLOWUP CARE: Ciprofloxacin 200 mg b.i.d. or per renal function x5 days for coverage. Continue Burgos catheter to gravity drainage. Continue care per primary service. I attest to the content of the Intraoperative Record and any orders documented therein. Any exceptions are noted below. MTDD
[2016-11-06] MEDS ORDERED: CIPROFLOXACIN 250 MG TAB PO SCH ×2 (06:00→18:00)
[2016-11-06] MEDS: BACITRACIN OINT 15 GM TUBE EXT SCH ×3 (06:00→20:12)
[2016-11-06 06:22] LABS: BUN/CREATININE RATIO 7.8 (10-20); CREATININE 4.4 mg/dl (0.60-1.40)
[2016-11-06 06:44] LABS: HEMATOCRIT 24.1 % (42-52); MEAN CELL VOLUME 86.1 fL (80-100); MEAN CORPUSCULAR HEMOGLOBIN 29.6 pg (25-34); MEAN CORPUSCULAR HGB CONC 34.4 g/dl (32-36); WHITE BLOOD COUNT 4.03 K/uL (4.8-10.8)
[2016-11-06 07:29] LABS: MEAN PLATELET VOLUME 11.5 fL (7.4-10.4); PLATELET COUNT 94 K/uL (130-400)
--- NOTE | 2016-11-06 08:06 | Progress Note ---
Subjective Date of Service: Nov 06, 2016. Subjective Pt evaluation today including: conversation w/ patient, chart review, lab review Voiding: alonso catheter in place (patent, draining bright phillips colored urine with minimal clot) 76 yo male with ARF, bilateral hydro, BPH with MACE, elevated PSA. Pt s/p prostate bx and cysto last evening. Cysto showing large friable prostate. UOs unable to be visualized d/t large median lobe obstructing view. The pt denies any pain this morning. Denies n/v. Cr noted to be 4.40 this morning s/p HD yesterday. H&H is 8.3 and 24.1 s/p transfusion yesterday. Alonso remains in place draining light phillips colored urine with minimal clot. Problem List Medical Problems: (1) Acidosis Status: Acute (2) Acute renal failure Status: Acute (3) Anemia Status: Acute (4) Hematuria Status: Acute (5) Hypothermia Status: Acute (6) Weakness Status: Acute Review of Systems Constitutional: No chills, No fever Respiratory: No shortness of breath Cardiac: No chest pain Abdomen: No nausea, No pain, No vomiting Male : + hematuria Heme: + abnormal bleeding/bruising Objective Vital Signs Date Time Temp Pulse Resp B/P Pulse Ox O2 Delivery O2 Flow Rate FiO2 11/06/16 06:18 Room Air 11/06/16 03:52 37.3 86 18 115/52 99 Room Air 11/05/16 23:59 96 Room Air 11/05/16 23:32 37.3 108 20 148/91 97 Room Air 11/05/16 20:00 95 Room Air 11/05/16 18:50 36.8 81 18 119/62 97 Room Air 11/05/16 16:00 94 Room Air 11/05/16 15:35 36.6 92 18 124/64 94 Room Air 11/05/16 15:10 36.8 86 121/69 11/05/16 14:45 87 100/63 11/05/16 14:30 91 106/63 11/05/16 14:00 88 95/63 11/05/16 13:45 71 116/67 11/05/16 13:30 89 101/69 11/05/16 13:15 82 107/64 11/05/16 13:00 82 117/67 11/05/16 12:45 79 120/67 11/05/16 12:30 81 120/74 11/05/16 12:15 72 106/63 11/05/16 12:06 36.8 90 20 120/72 99 Room Air 11/05/16 12:03 76 119/68 11/05/16 12:00 82 117/77 11/05/16 11:45 76 123/70 11/05/16 11:30 77 111/68 11/05/16 11:20 82 124/64 11/05/16 11:15 37.2 90 129/74 11/05/16 10:21 36.9 96 16 99/75 98 Room Air 11/05/16 08:00 Room Air Physical Exam General Appearance: no apparent distress Eyes: normal inspection ENT: hearing grossly normal Neck: no JVD Respiratory/Chest: no respiratory distress, no accessory muscle use Cardiovascular: no JVD Extremities: normal inspection Neurologic/Psychiatric: alert, normal mood/affect, oriented x 3 Skin: normal color Laboratory Results Last 24 Hours Test 11/05/16 08:23 11/06/16 05:16 Vitamin B12 Level 420 pg/mL White Blood Count 4.03 K/uL Red Blood Count 2.80 M/uL Hemoglobin 8.3 g/dL Hematocrit 24.1 % Mean Corpuscular Volume 86.1 fL Mean Corpuscular Hemoglobin 29.6 pg Mean Corpuscular Hemoglobin Concent 34.4 g/dl RDW Standard Deviation 45.3 fL RDW Coefficient of Variation 14.4 % Platelet Count 94 K/uL Mean Platelet Volume 11.5 fL Sodium Level 137 mmol/L Potassium Level 4.0 mmol/L Chloride Level 102 mmol/L Carbon Dioxide Level 24 mmol/L Anion Gap 11.0 mmol/L Blood Urea Nitrogen 34 mg/dl Creatinine 4.40 mg/dl Est Creatinine Clear Calc Drug Dose 17.1 ml/min Estimated GFR () 14.2 Estimated GFR (Non- 12.2 BUN/Creatinine Ratio 7.8 Random Glucose 87 mg/dl Calcium Level 7.0 mg/dl Magnesium Level 2.0 mg/dl Assessment and Plan A/P: ARF, bilateral hydro, elevated PSA, BPH, gross hematuria, phimosis Pt with persistent gross hematuria. Large friable prostate noted on cysto last evening. Likely the primary source for gross hematuria along with his large bladder stone. Some hematuria after prostate bx not uncommon either. However, minimal bleeding noted and unlikely the cause for persistent anemia requiring repeated transfusions. Would suspect insufficient erythropoietin due to his renal failure to be a more likely cause. Pt likely to continue to experience some hematuria while alonso remains in place. Discontinuation of the alonso catheter dependent upon nephrology recommendations and whether the pt is able to void. Pt not currently a prime candidate for TURP with cystolithopaxy and administration of anesthesia given current state and comorbidities. Would need cardiac and medical clearances. As for his persistent bilateral hydronephrosis, this is unlikely to respond to bilateral ureteral stent placement in the setting of ARF and MACE seeing the appearance of his kidneys on CT scan. With little functional parenchyma and significant bilateral hydro, it is expected that the pt will require dialysis even upon bilateral stent placement. Prostate bx pending today. Consider starting Degarelix if positive. Pt with noted paraphimosis last evening. Reduced by Dr. Deleon. Wash penis with soap and water daily, and ensure foreskin has been pulled back down over the glans. Will continue to follow along with primary service at this time.
[2016-11-06] MEDS: NEPHROCAPS PO SCH (08:44)
[2016-11-06] MEDS: GABAPENTIN 100 MG CAP PO SCH ×2 (08:44→20:12)
[2016-11-06] MEDS: FINASTERIDE 5 MG TAB PO SCH (08:45)
[2016-11-06] MEDS: CALCITRIOL 0.25 MCG CAP PO SCH (08:45)
[2016-11-06] MEDS: CALCIUM CARBONATE 500 MG CHEWABLE PO SCH ×3 (08:45→16:03)
--- NOTE | 2016-11-06 09:41 | Nephrology Progress Note ---
Nephrology Progress Note Date of Service Nov 06, 2016. Chief Complaint MARY Subjective No acute events overnight. Mr. Yung has no acute complaints this morning. He denies pain. He tolerated prostate biopsy and cystoscopy yesterday. Dr. Deleon's note was reviewed in detail this morning. Cystoscopy describing papillary bladder lesions consistent with inflammation and less concerning for bladder malignancy. The ureteral orifices were not well identified due to large median lobe of the prostate. Prostate tissue was friable and felt to be the source of bleeding. Core prostate biopsies were taken at the bedside without complication. Mr. Yung was started on prophylactic cipro following the procedure. Burgos catheter remains intact. He continues to drain phillips colored urine. He denies fevers or chills. He has not experienced any flank pain. Review of Systems A complete review of systems was performed. Pertinent positives are noted above. All other systems are negative. Vital Signs Last 8 Hrs Date Time Temp Pulse Resp B/P Pulse Ox O2 Delivery O2 Flow Rate FiO2 11/06/16 08:37 37.3 87 16 111/63 97 Room Air 11/06/16 06:18 Room Air 11/06/16 03:52 37.3 86 18 115/52 99 Room Air I & O 24-Hour Column 11/06/16 08:00 Intake Total 755 ml Output Total 3000 ml Balance -2245 ml Last Recorded Weight Weight (Kilograms): 102.900 Physical Exam General Appearance: WD/WN, no apparent distress Head: normocephalic, atraumatic Eyes: normal inspection, sclerae normal ENT: normal ENT inspection, pharynx normal Neck: supple, no JVD Respiratory/Chest: lungs clear, no respiratory distress, no accessory muscle use Cardiovascular: regular rate, rhythm, no gallop Abdomen/GI: non tender, soft Genitourinary - Male: + pertinent finding (Burgos draining phillips colored urine) Extremities/Musculoskelatal: normal inspection, no pedal edema Neurologic/Psych: alert, oriented x 3 Family History Patient reports no known family medical history. 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) Laboratory Results Past 24 Hours 11/06/16 05:16 11/06/16 05:16 Test 11/06/16 05:16 Red Blood Count 2.80 M/uL (4.7-6.1) Mean Corpuscular Volume 86.1 fL (80-100) Mean Corpuscular Hemoglobin 29.6 pg (25-34) Mean Corpuscular Hemoglobin Concent 34.4 g/dl (32-36) RDW Standard Deviation 45.3 fL (36.4-46.3) RDW Coefficient of Variation 14.4 % (11.5-14.5) Mean Platelet Volume 11.5 fL (7.4-10.4) Anion Gap 11.0 mmol/L (3-11) Est Creatinine Clear Calc Drug Dose 17.1 ml/min Estimated GFR () 14.2 Estimated GFR (Non- 12.2 BUN/Creatinine Ratio 7.8 (10-20) Calcium Level 7.0 mg/dl (8.5-10.1) Magnesium Level 2.0 mg/dl (1.8-2.4) Allergies Coded Allergies: No Known Allergies (Unverified , 10/29/16) Medications Current Inpatient Medications Medications (Trade) Dose Ordered Sig/Sonia Route Start Time Stop Time Status Last Admin Dose Admin Acetaminophen (Tylenol Tab) 650 mg Q4H PRN PO 10/29/16 16:00 11/28/16 15:59 Ondansetron HCl (Zofran Inj) 4 mg Q6H PRN IV 10/29/16 16:00 11/28/16 15:59 10/31/16 17:39 4 MG Amlodipine Besylate (Norvasc Tab) 10 mg DAILY PO 10/31/16 09:00 11/30/16 08:59 Future Hold Calcitriol (Rocaltrol Cap) 0.5 mcg TuThSa@0900 PO 11/01/16 09:00 12/01/16 08:59 11/06/16 08:45 0.5 MCG Oxycodone/ Acetaminophen FOR MODERATE PAIN ... Q4H PRN PO 10/31/16 08:15 11/14/16 08:14 Pantoprazole Sodium/Syringe (Protonix Inj/ Syringe) 10 ml @ 5 mls/min DAILY@11 IV 10/31/16 11:00 11/30/16 10:59 11/05/16 11:03 5 MLS/MIN Vitamin B Complex/ Vit C/Folic Acid (Nephrocaps) 1 cap QAM PO 11/01/16 09:00 12/01/16 08:59 11/06/16 08:44 1 CAP Gabapentin (Neurontin Cap) 100 mg BID PO 11/02/16 21:00 12/02/16 20:59 11/06/16 08:44 100 MG Calcium Carbonate (Tums Chew Tab) 500 mg AC PO 11/03/16 16:15 12/03/16 16:14 11/06/16 08:45 500 MG Bacitracin (Bacitracin Oint) 1 appln Q8 EXT 11/05/16 22:00 12/05/16 21:59 11/06/16 06:00 1 APPLN Finasteride (Proscar Tab) 5 mg QAM PO 11/06/16 09:00 12/06/16 08:59 11/06/16 08:45 5 MG Ciprofloxacin (Ciprofloxacin Tab) 250 mg Q12H PO 11/06/16 18:00 11/06/16 18:01 Ciprofloxacin (Cipro Tab) 500 mg QPM PO 11/07/16 21:00 11/10/16 21:01 Impression (1) ESRD needing dialysis (2) Hyperkalemia, diminished renal excretion (3) Metabolic acidosis with increased anion gap and reduced excretion of inorganic acids (4) Secondary hyperparathyroidism of renal origin (5) Anemia (6) Hematuria (7) Vitamin D deficiency Mr. Yung presented to the hospital with 6 month h/o hematuria, progressive weight loss, recent worsening shortness of breath, anorexia nausea. On admission he was found to be anemic with hemoglobin 6.7, renal impairment with creatinine 18 and BUN 192. No prior h/o CKD. Renal US showed bilateral severe hydronephrosis with significant cortical atrophy and bladder mass. He has been uremic seems to be for long time as indicated by significant weight loss, anorexia, nausea and generalized weakness. 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 RIJ HD permcath placed 10/31/16. First hemodialysis treatment performed on 10/31/16. Treatment was complicated by dialytic hypotension. Second treatment completed on 11/01/16 without complications. Burgos continues to drain bloody urine. Repeat US shows persistent bilateral severe hydronephrosis. No history of diabetes or coronary artery disease. History of hypertension but has not been taking any medications were following with any physician for 10 years. Recommendations END STAGE RENAL DISEASE: -- Continue HD MWF schedule -- Continue to hold heparin with HD for hematuria -- Protect left arm for AVF -- Outpatient dialysis in [place], [place] pending discharge from [facility] BPH / BLADDER MASS / BLADDER STONE / ELEVATED PSA: -- Cysto and prostate biopsy performed by urology yesterday -- Prostate pathology pending -- Burgos to gravity ANEMIA: -- Two units PRBC transfused during HD 11/01/16. Additional unit transfused with HD yesterday. -- Continue Procrit QHD and monitor H/H BONE & MINERAL METABOLISM: -- Patient has elevated PTH. He has been started on calcitriol -- Tums one tablet with each male as a phosphate binder
[2016-11-06] MEDS: PANTOprazole SOD 40 MG TAB PO SCH (11:05)
--- NOTE | 2016-11-06 13:37 | Hospitalist Progress Note ---
Hospitalist Progress Note Date of Service Nov 06, 2016. (Vonnie Rodgers ., PERLA-C) Subjective Pt evaluation today including: conversation w/ patient, physical exam, chart review, lab review, review of inpatient medication list PO Intake: Tolerating PO diet Voiding: alonso catheter in place (gross hematuria) Patient reports feeling the same. He complains of weakness and fatigue that is unchanged. He is tolerating a PO diet well. Alonso catheter is in place draining pink urine, however, there is clear yellow urine in the catheter tubing. The patient denies fevers, chills, sweats, chest pain, palpitations, claudication, cough, wheezing, shortness of breath, nausea, vomiting, abdominal pain, dysuria, hematuria, urinary retention, paralysis, weakness, numbness and tingling. Additional Comments: See HPI for pertinent positives and negatives. All other systems reviewed and negative. (Vonnie Rodgers ., PERLA-C) Objective Vital Signs Date Time Temp Pulse Resp B/P Pulse Ox O2 Delivery O2 Flow Rate FiO2 11/06/16 12:20 36.8 92 15 130/73 98 Room Air 11/06/16 12:00 Room Air 11/06/16 08:37 37.3 87 16 111/63 97 Room Air 11/06/16 08:00 Room Air 11/06/16 06:18 Room Air 11/06/16 03:52 37.3 86 18 115/52 99 Room Air 11/05/16 23:59 96 Room Air 11/05/16 23:32 37.3 108 20 148/91 97 Room Air 11/05/16 20:00 95 Room Air 11/05/16 18:50 36.8 81 18 119/62 97 Room Air 11/05/16 16:00 94 Room Air 11/05/16 15:35 36.6 92 18 124/64 94 Room Air 11/05/16 15:10 36.8 86 121/69 11/05/16 14:45 87 100/63 11/05/16 14:30 91 106/63 11/05/16 14:00 88 95/63 11/05/16 13:45 71 116/67 11/05/16 13:30 89 101/69 (Vonnie Rodgers ., PERLA-C) Physical Exam General Appearance: WD/WN, no apparent distress, + obese Eyes: normal inspection, PERRL, EOMI ENT: normal ENT inspection, hearing grossly normal, pharynx normal Neck: supple, no JVD, trachea midline Respiratory/Chest: lungs clear, normal breath sounds, no respiratory distress Cardiovascular: regular rate, rhythm, no gallop, no murmur Abdomen: normal bowel sounds, non tender, soft, + pertinent finding (pink urine in catheter bag, appears human resources partner in color than yesterday) Extremities: non-tender, normal inspection, no pedal edema Neurologic/Psychiatric: alert, normal mood/affect, oriented x 3 Skin: normal color, warm/dry, no rash (Vonnie Rodgers ., PA-C) Laboratory Results Last 24 Hours Test 11/06/16 05:16 White Blood Count 4.03 K/uL Red Blood Count 2.80 M/uL Hemoglobin 8.3 g/dL Hematocrit 24.1 % Mean Corpuscular Volume 86.1 fL Mean Corpuscular Hemoglobin 29.6 pg Mean Corpuscular Hemoglobin Concent 34.4 g/dl RDW Standard Deviation 45.3 fL RDW Coefficient of Variation 14.4 % Platelet Count 94 K/uL Mean Platelet Volume 11.5 fL Sodium Level 137 mmol/L Potassium Level 4.0 mmol/L Chloride Level 102 mmol/L Carbon Dioxide Level 24 mmol/L Anion Gap 11.0 mmol/L Blood Urea Nitrogen 34 mg/dl Creatinine 4.40 mg/dl Est Creatinine Clear Calc Drug Dose 17.1 ml/min Estimated GFR () 14.2 Estimated GFR (Non- 12.2 BUN/Creatinine Ratio 7.8 Random Glucose 87 mg/dl Calcium Level 7.0 mg/dl Magnesium Level 2.0 mg/dl (Vonnie Rodgers ., PA-C) Assessment and Plan 76 y/o male with a history of chronic obstructive uropathy presents with weakness, DUGGAN, lightheadedness, gross hematuria, and anemia.. Acute renal failure/End stage renal disease--likely secondary to chronic obstructive uropathy -Admitted to med/surg. Transferred to telemetry 10/31 -Permcath placed 10/31 -Started dialysis 10/31 but was ended early due to low BP, tolerated full session of HD on 11/01 -Nephrology consulted, appreciate recs: continue current management -Creatinine 4.4 on 11/06 -Continue to monitor renal function Acute blood loss anemia secondary to hematuria--concerning for bladder cancer -Transfuse 2 units PRBCs on 10/29. Hgb did improve, but dropped back to 7.1 on -Another 2 units PRBCs transfused during dialysis 11/01 -Hgb 7.3 on 11/05, transfused 1 unit PRBC during HD -Hgb 8.3 on 11/06 -Still gross hematuria in Alonso -Vitamin B12 checked, WNL Obstructive uropathy concerning for bladder cancer/mass. Pt reports weight loss over the last several months -Continue Alonso -Urology consulted, appreciate recs: D/C Alonso dependent on nephro recs and whether pt could void. Prostate biopsy pending, consider starting Degarelix if positive. Paraphimosis reduced. Wash penis with soap and water daily, and ensure foreskin has been pulled back down over the glans. -Cystoscopy and prostate biopsy on 11/[address] Deleon: Paraphimosis, reduced. Prostate inflamed and friable, likely source of bleeding. Recommend Cipro 250 mg PO BID (or as renal function allows) 5 days following procedure -Cipro 500 mg PO q24h x 5 days per renal dosing -Finasteride 5 mg PO qd Hypomagnesemia--resolved -Magnesium 1.6 on 11/04 -Given magnesium sulfate 1 gm IV x 1 -Magnesium 1.7 on 11/05. Give magnesium sulfate 1 gm IV x 1 again, will recheck tomorrow am -Magnesium on 11/06 was 2.0 Peripheral neuropathy -Continue gabapentin 100 mg PO BID DVT prophylaxis -Chemical prophylaxis contraindicated due to bleeding -TEDS, SCDs Code Status -Level V, DO NOT RESUSCITATE Dispo -PT states pt may need acute rehab if not able to meet physical therapy goals while admitted. Will need to show proficiency on stairs. Has not been ambulating much. (Vonnie Rodgers ., ALF) Reviewed: Pt Seen/Exam by Me (Nupur West MD) History Physician Residential Green Building Designer Supervision Note: I interviewed and examined the patient. Discussed with PERLA Rodgers and agree with findings and plan as documented in the note. Any exceptions or clarifications are listed here: No complaints, not sure about going to rehab but brother in room says he has to go. Hematuria seems less today Vitals reviewed NAD RRR no mgr CTAB unlabored breathing Abd soft NT ND +BS Ext no edema -Alonso in place with light phillips colored urine in bag Skin: RTIJ catheter in place without erythema or drainage 76 yo male with obstructive uropathy and renal failure requiring HD, enlarged prostate, hematuria and severe anemia secondary to inflammatory cystitis. Repeat renal US essentially unchanged despite Alonso placement so ureteral stents won't help and will only cause nidus for infection - workup to look for CA (prostate vs bladder). PSA 58 but could be BPH--> f/u pathology from prostate bx performed 11/05/16 -started on finasteride and Cipro pre and post-op biopsy -f/u with Urol as outpt - Urine cytology negative for malignant cells on pathology. -continue HD and appreciate Nephrology management-for HD MWF -was on Rocephin--> no infection present, will d/c -now on Cipro s/p prostate bx -follow H/H and transfuse with HD if < 8 -send out with Alonso and will need Urology office f/u, repeat PSA in a few weeks -PT/OT evals and will definitely need home RN and needs to get established with a PCP (Nupur West MD)
[2016-11-07] VITALS (20 sets, daily range): BP systolic 95–136; BP diastolic 55–78; PULSE 63–93; TEMP 36.3–37; O2SAT 98–100
[2016-11-07] MEDS: BACITRACIN OINT 15 GM TUBE EXT SCH ×3 (05:19→20:51)
[2016-11-07 06:12] LABS: HEMATOCRIT 23.6 % (42-52); MEAN CELL VOLUME 86.8 fL (80-100); MEAN CORPUSCULAR HEMOGLOBIN 29.4 pg (25-34); MEAN CORPUSCULAR HGB CONC 33.9 g/dl (32-36); MEAN PLATELET VOLUME 11.6 fL (7.4-10.4); PLATELET COUNT 101 K/uL (130-400); RED BLOOD COUNT 2.72 M/uL (4.7-6.1); WHITE BLOOD COUNT 2.98 K/uL (4.8-10.8)
[2016-11-07 06:49] LABS: BUN/CREATININE RATIO 8.5 (10-20); CALCIUM 7.2 mg/dl (8.5-10.1); MAGNESIUM 1.9 mg/dl (1.8-2.4); PHOSPHORUS 3.7 mg/dl (2.5-4.9); POTASSIUM 3.7 mmol/L (3.5-5.1)
[2016-11-07] MEDS ORDERED: EPOETIN ALFA 10,000 UNITS/ML VIAL IV SCH (07:00)
[2016-11-07] MEDS: CALCIUM CARBONATE 500 MG CHEWABLE PO SCH ×3 (08:05→16:31)
[2016-11-07] MEDS: NEPHROCAPS PO SCH (08:05)
[2016-11-07] MEDS: GABAPENTIN 100 MG CAP PO SCH ×2 (08:05→20:49)
[2016-11-07] MEDS: PANTOprazole SOD 40 MG TAB PO SCH (08:06)
[2016-11-07] MEDS: FINASTERIDE 5 MG TAB PO SCH (08:06)
--- NOTE | 2016-11-07 10:37 | Progress Note ---
Subjective Date of Service: Nov 07, 2016. (Nita Espana CRNP) Subjective Pt evaluation today including: conversation w/ patient, chart review Voiding: alonso catheter in place Pt in dialysis during visit. Had bedside cysto prostate biopsy yesterday. Path report on prostate tissue is negative for prostate cancer. Noted an enlarged median lobe upon cysto- unable to visualize bilateral UOs. Dialysis infusing via perm cath. Alonso intact and draining clear urine- light pink at times. (Nita Espana CRNP) Problem List Medical Problems: (1) Acidosis Status: Acute (2) Acute renal failure Status: Acute (3) Anemia Status: Acute (4) Hematuria Status: Acute (5) Hypothermia Status: Acute (6) Weakness Status: Acute (Nita Espana CRNP) Review of Systems Constitutional: No chills, No fever Eyes: No worsening of vision ENT: No hearing loss Respiratory: No cough Cardiac: No chest pain Abdomen: No nausea, No pain Male : + see HPI Heme: No abnormal bleeding/bruising (Ntia Espana CRNP) Objective Vital Signs Date Time Temp Pulse Resp B/P Pulse Ox O2 Delivery O2 Flow Rate FiO2 11/07/16 07:20 36.7 89 16 100/56 98 Room Air 11/07/16 04:00 36.8 79 18 120/63 98 Room Air 11/07/16 04:00 Room Air 11/06/16 23:59 Room Air 11/06/16 23:38 37.0 82 20 96/50 98 Room Air 11/06/16 20:00 Room Air 11/06/16 19:29 37.0 76 22 126/59 98 Room Air 11/06/16 16:09 85 100 11/06/16 16:00 Room Air 11/06/16 15:24 36.6 85 10 114/60 100 Room Air 11/06/16 12:20 36.8 92 15 130/73 98 Room Air 11/06/16 12:00 Room Air (Nita Espana CRNP) Physical Exam General Appearance: WD/WN, no apparent distress Eyes: normal inspection ENT: hearing grossly normal Neck: no JVD Respiratory/Chest: no respiratory distress, no accessory muscle use Cardiovascular: no JVD Abdomen: soft Neurologic/Psychiatric: alert, normal mood/affect, oriented x 3 Skin: normal color, warm/dry (Nita Espana CRNP) Laboratory Results Last 24 Hours Test 11/07/16 05:15 White Blood Count 2.98 K/uL Red Blood Count 2.72 M/uL Hemoglobin 8.0 g/dL Hematocrit 23.6 % Mean Corpuscular Volume 86.8 fL Mean Corpuscular Hemoglobin 29.4 pg Mean Corpuscular Hemoglobin Concent 33.9 g/dl RDW Standard Deviation 46.4 fL RDW Coefficient of Variation 14.8 % Platelet Count 101 K/uL Mean Platelet Volume 11.6 fL Sodium Level 133 mmol/L Potassium Level 3.7 mmol/L Chloride Level 99 mmol/L Carbon Dioxide Level 22 mmol/L Anion Gap 12.0 mmol/L Blood Urea Nitrogen 51 mg/dl Creatinine 6.00 mg/dl Est Creatinine Clear Calc Drug Dose 12.6 ml/min Estimated GFR () 9.7 Estimated GFR (Non- 8.4 BUN/Creatinine Ratio 8.5 Random Glucose 87 mg/dl Calcium Level 7.2 mg/dl Phosphorus Level 3.7 mg/dl Magnesium Level 1.9 mg/dl (Nita Espana CRNP) Assessment and Plan Persistant gross hematuria Bedside cysto and prostate biopsy- large friable median lobe prostate. Pt not currently a prime candidate for TURP with cystolithopaxy and administration of anesthesia given current state and comorbidities. Would need cardiac and medical clearances. Per Dr. Elise would recommend keeping alonso given his significant outlet obstructing. Likelihood of voiding on his own is minimal. Unable to find UOs during cysto.Noting his persistent bilateral hydronephrosis it is unlikely that bilateral stent placement will make a large difference seeing the appearance of his kidneys on CT scan and diminshed functioning parenchyma, it is expected that the pt will require dialysis even upon bilateral stent placement. Prostate bx negative- nothing further Reduced paraphimosis 2 days ago Continue to wash penis with soap and water daily , and ensure foreskin has been pulled back down over the glans. (Nita Espana CRNP) discussed with Dr. pinto and if pt does not have obvious prostate cancer his renal faiure is from presumed MACE and doubt he will void on his own given his prostate size. Would leave alonso in for now and start on longer antibiotic course given acute and chronic prostatitis on bx. Would consider prostate biopsy with ultra sound machine in future if psa does not normalize (Elder Elise M.D.)
--- NOTE | 2016-11-07 11:02 | Nephrology Progress Note ---
Nephrology Progress Note Date of Service Nov 07, 2016. Chief Complaint MARY Subjective No acute events overnight. Mr. Yung was seen and evaluated during hemodialysis. Plan of care was discussed with Dr. West and Dr. Elise. Mr. Yung has no acute complaints. No fevers or chills. Denies flank pain. Burgos intake draining slightly blood tinged urine. No shortness of breath. Tolerating HD well. Review of Systems A complete review of systems was performed. Pertinent positives are noted above. All other systems are negative. Vital Signs Last 8 Hrs Date Time Temp Pulse Resp B/P Pulse Ox O2 Delivery O2 Flow Rate FiO2 11/07/16 09:14 37.0 82 102/57 11/07/16 08:00 Room Air 11/07/16 07:20 36.7 89 16 100/56 98 Room Air 11/07/16 04:00 36.8 79 18 120/63 98 Room Air 11/07/16 04:00 Room Air I & O 24-Hour Column 11/07/16 08:00 Intake Total 1170 ml Output Total 975 ml Balance 195 ml Last Recorded Weight Weight (Kilograms): 102.000 Physical Exam General Appearance: WD/WN, no apparent distress Head: normocephalic, atraumatic Eyes: normal inspection, sclerae normal ENT: normal ENT inspection, pharynx normal Neck: supple, no JVD, + pertinent finding (RIJ HD permcath) Cardiovascular: regular rate, rhythm, no murmur Abdomen/GI: non tender, soft Genitourinary - Male: + pertinent finding (Burgos draining blood tinged urine) Extremities/Musculoskelatal: no pedal edema Neurologic/Psych: alert, oriented x 3 Family History Patient reports no known family medical history. 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7 mg/dl (2.5-4.9) Magnesium Level 1.9 mg/dl (1.8-2.4) Allergies Coded Allergies: No Known Allergies (Unverified , 10/29/16) Medications Current Inpatient Medications Medications (Trade) Dose Ordered Sig/Sonia Route Start Time Stop Time Status Last Admin Dose Admin Acetaminophen (Tylenol Tab) 650 mg Q4H PRN PO 10/29/16 16:00 11/28/16 15:59 Ondansetron HCl (Zofran Inj) 4 mg Q6H PRN IV 10/29/16 16:00 11/28/16 15:59 10/31/16 17:39 4 MG Amlodipine Besylate (Norvasc Tab) 10 mg DAILY PO 10/31/16 09:00 11/30/16 08:59 Future Hold Calcitriol (Rocaltrol Cap) 0.5 mcg TuThSa@0900 PO 11/01/16 09:00 12/01/16 08:59 11/06/16 08:45 0.5 MCG Oxycodone/ Acetaminophen (Percocet 5-325mg Tab) FOR MODERATE PAIN ... Q4H PRN PO 10/31/16 08:15 11/14/16 08:14 Vitamin B Complex/ Vit C/Folic Acid (Nephrocaps) 1 cap QAM PO 11/01/16 09:00 12/01/16 08:59 11/07/16 08:05 1 CAP Gabapentin (Neurontin Cap) 100 mg BID PO 11/02/16 21:00 12/02/16 20:59 11/07/16 08:05 100 MG Calcium Carbonate (Tums Chew Tab) 500 mg AC PO 11/03/16 16:15 12/03/16 16:14 11/07/16 08:05 500 MG Bacitracin (Bacitracin Oint) 1 appln Q8 EXT 11/05/16 22:00 12/05/16 21:59 11/07/16 05:19 1 APPLN Finasteride (Proscar Tab) 5 mg QAM PO 11/06/16 09:00 12/06/16 08:59 11/07/16 08:06 5 MG Ciprofloxacin (Cipro Tab) 500 mg QPM PO 11/07/16 21:00 11/10/16 21:01 Pantoprazole Sodium (Protonix Tab) 40 mg QAM PO 11/06/16 11:00 12/06/16 10:59 11/07/16 08:06 40 MG Tamsulosin HCl (Flomax Cap) 0.4 mg HS PO 11/07/16 21:00 12/07/16 20:59 Impression (1) ESRD needing dialysis (2) Hyperkalemia, diminished renal excretion (3) Metabolic acidosis with increased anion gap and reduced excretion of inorganic acids (4) Secondary hyperparathyroidism of renal origin (5) Anemia (6) Hematuria (7) Vitamin D deficiency Mr. Yung presented to the hospital with 6 month h/o hematuria, progressive weight loss, recent worsening shortness of breath, anorexia nausea. On admission he was found to be anemic with hemoglobin 6.7, renal impairment with creatinine 18 and BUN 192. No prior h/o CKD. Renal US showed bilateral severe hydronephrosis with significant cortical atrophy and bladder mass. He has been uremic seems to be for long time as indicated by significant weight loss, anorexia, nausea and generalized weakness. 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 RIJ HD permcath placed 10/31/16. First hemodialysis treatment performed on 10/31/16. Treatment was complicated by dialytic hypotension. Second treatment completed on 11/01/16 without complications. Burgos continues to drain bloody urine. Repeat US shows persistent bilateral severe hydronephrosis. Cysto and prostate biopsy performed by Dr. Deleon. Ureteral orifices unable to be appreciated. Mr. Yung continues to make a good amount of urine without evidence of renal recovery. No history of diabetes or coronary artery disease. History of hypertension but has not been taking any medications were following with any physician for 10 years. Recommendations END STAGE RENAL DISEASE: -- Continue HD MWF schedule -- Continue to hold heparin with HD for hematuria -- Protect left arm for AVF -- Outpatient dialysis in [place], [place] under care of Dr. Carson arranged -- Orders written for continued HD at [facility] BPH / BLADDER MASS / BLADDER STONE / ELEVATED PSA: -- Cysto and prostate biopsy performed by urology 11/05/16 -- Prostate pathology negative for malignancy -- Burgos to gravity -- Prophylactic ciprofloxacin 500 mg daily (administered after dialysis on HD days) ANEMIA: -- Two units PRBC transfused during HD 11/01/16. Additional unit transfused with HD yesterday and today. -- Continue Procrit QHD (hold today for PRBC transfusion). Monitor H/H BONE & MINERAL METABOLISM: -- Patient has elevated PTH. He has been started on calcitriol -- Tums one tablet with each male as a phosphate binder
--- NOTE | 2016-11-07 14:07 | Hospitalist Progress Note ---
Hospitalist Progress Note Date of Service Nov 07, 2016. (Vonnie Rodgers ., PA-C) Subjective Pt evaluation today including: conversation w/ patient, physical exam, chart review, lab review, conversation w/ neuropsychology medical consultant (spoke with Dr. Hisrch), review of inpatient medication list PO Intake: Tolerating PO diet Voiding: flanagan catheter in place (gross hematuria) Patient reports feeling the same as yesterday. He complains of weakness and fatigue. He denies any new complaints and is eager to be discharged. Patient due for hemodialysis today. Flanagan catheter is in place draining blood tinged urine. The patient denies fevers, chills, sweats, chest pain, palpitations, claudication, cough, wheezing, shortness of breath, nausea, vomiting, abdominal pain, dysuria, urinary retention, paralysis, weakness, new numbness and tingling. Additional Comments: See HPI for pertinent positives and negatives. All other systems reviewed and negative. (Vonnie Rodgers ., PA-C) Objective Vital Signs Date Time Temp Pulse Resp B/P Pulse Ox O2 Delivery O2 Flow Rate FiO2 11/07/16 13:45 36.5 81 105/68 11/07/16 12:45 63 108/63 11/07/16 12:30 66 110/62 11/07/16 12:15 81 112/67 11/07/16 12:00 67 115/61 11/07/16 11:45 78 116/67 11/07/16 11:30 73 120/77 11/07/16 11:15 69 115/63 11/07/16 11:00 79 122/67 11/07/16 10:45 78 117/67 11/07/16 10:30 71 118/63 11/07/16 10:15 75 102/60 11/07/16 10:00 76 99/55 11/07/16 09:45 76 95/57 11/07/16 09:30 74 95/58 11/07/16 09:14 37.0 82 102/57 11/07/16 08:00 Room Air 11/07/16 07:20 36.7 89 16 100/56 98 Room Air 11/07/16 04:00 36.8 79 18 120/63 98 Room Air 11/07/16 04:00 Room Air 11/06/16 23:59 Room Air 11/06/16 23:38 37.0 82 20 96/50 98 Room Air 11/06/16 20:00 Room Air 11/06/16 19:29 37.0 76 22 126/59 98 Room Air 11/06/16 16:09 85 100 11/06/16 16:00 Room Air 11/06/16 15:24 36.6 85 10 114/60 100 Room Air (Vonnie Rodgers ., PA-C) Physical Exam General Appearance: WD/WN, no apparent distress, + obese Eyes: normal inspection, PERRL, EOMI ENT: normal ENT inspection, hearing grossly normal, pharynx normal Neck: supple, no JVD, trachea midline Respiratory/Chest: normal breath sounds, no respiratory distress, + crackles ( mild crackles L base) Cardiovascular: regular rate, rhythm, no gallop, no murmur Abdomen: normal bowel sounds, non tender, soft Extremities: non-tender, normal inspection, no pedal edema Neurologic/Psychiatric: alert, normal mood/affect, oriented x 3 Skin: normal color, warm/dry, no rash (oVnnie Rodgers ., PA-C) Laboratory Results Last 24 Hours Test 11/07/16 05:15 White Blood Count 2.98 K/uL Red Blood Count 2.72 M/uL Hemoglobin 8.0 g/dL Hematocrit 23.6 % Mean Corpuscular Volume 86.8 fL Mean Corpuscular Hemoglobin 29.4 pg Mean Corpuscular Hemoglobin Concent 33.9 g/dl RDW Standard Deviation 46.4 fL RDW Coefficient of Variation 14.8 % Platelet Count 101 K/uL Mean Platelet Volume 11.6 fL Sodium Level 133 mmol/L Potassium Level 3.7 mmol/L Chloride Level 99 mmol/L Carbon Dioxide Level 22 mmol/L Anion Gap 12.0 mmol/L Blood Urea Nitrogen 51 mg/dl Creatinine 6.00 mg/dl Est Creatinine Clear Calc Drug Dose 12.6 ml/min Estimated GFR () 9.7 Estimated GFR (Non- 8.4 BUN/Creatinine Ratio 8.5 Random Glucose 87 mg/dl Calcium Level 7.2 mg/dl Phosphorus Level 3.7 mg/dl Magnesium Level 1.9 mg/dl (Vonnie Rodgers ., PA-C) Assessment and Plan 76 y/o male with a history of chronic obstructive uropathy presents with weakness, DUGGAN, lightheadedness, gross hematuria, and anemia.. Acute renal failure/End stage renal disease--likely secondary to chronic obstructive uropathy -Admitted to med/surg. Transferred to telemetry 10/31 -Permcath placed 10/31 -Started dialysis 10/31 but was ended early due to low BP, tolerated full session of HD on 11/01 -Nephrology consulted, appreciate recs: will transfuse 1 unit PRBC during HD -Creatinine 6.0 on 11/07 -Continue to monitor renal function Acute blood loss anemia secondary to hematuria--concerning for bladder cancer -Transfuse 2 units PRBCs on 10/29. Hgb did improve, but dropped back to 7.1 on -Another 2 units PRBCs transfused during dialysis 11/01 -Hgb 7.3 on 11/05, transfused 1 unit PRBC during HD -Hgb 8.0 on 11/07. Will transfuse 1 unit PRBC during hemodialysis today, continue to monitor -Still gross hematuria in Flanagan -Vitamin B12 checked, WNL Obstructive uropathy, acute prostatitis -Urology consulted, appreciate recs: Continue Flanagan catheter as unlikely to void on his own. Wash penis with soap and water daily, and ensure foreskin has been pulled back down over the glans. -Finasteride 5 mg PO qd -Start Flomax 0.4 mg PO qd -Cystoscopy and prostate biopsy on 11/[address] Deleon: Paraphimosis, reduced. Prostate inflamed and friable, likely source of bleeding. Recommend Cipro 250 mg PO BID (or as renal function allows) 5 days following procedure -Cipro 500 mg PO q24h x 5 days per renal dosing Hypomagnesemia--resolved -Magnesium 1.6 on 11/04 -Given magnesium sulfate 1 gm IV x 1 -Magnesium 1.7 on 11/05. Give magnesium sulfate 1 gm IV x 1 again, will recheck tomorrow am -Magnesium remains stable Peripheral neuropathy -Continue gabapentin 100 mg PO BID DVT prophylaxis -Chemical prophylaxis contraindicated due to bleeding -TEDS, SCDs Code Status -Level V, DO NOT RESUSCITATE Dispo -PT/OT evaluated recommend acute inpatient rehabilitation. Patient is accepted to [facility] and can be transferred when medically stable. No insurance authorization required. Patient will receive HD on site. (Vonnie Rodgers ., PABlakeC) Reviewed: Pt Seen/Exam by Me (Nupur West MD) History Physician Tape Weaver Supervision Note: I interviewed and examined the patient. Discussed with PERLA Rodgers and agree with findings and plan as documented in the note. Any exceptions or clarifications are listed here: No complaints, had HD today, say she feels about the same Vitals reviewed NAD RRR no mgr CTAB unlabored breathing Abd soft NT ND +BS Ext no edema -Flanagan in place with light phillips colored urine in bag, foreskin pulled back and moderate amount of foul smelling purulent material drained--> washed with soap and water with RN and cleaned, skin appears normal, no erythema Skin: RTIJ catheter in place without erythema or drainage 76 yo male with obstructive uropathy and renal failure requiring HD, enlarged prostate, hematuria and severe anemia secondary to inflammatory cystitis. Repeat renal US essentially unchanged despite Flanagan placement so ureteral stents won't help and will only cause nidus for infection, however if UOs not visualized and there is obstruction there, he is at risk for Pyelo in the future --> Urology prefers no stents for now and will watch for infection. Prostate biopsy neg for CA, Urine cytology neg for malignant cells. BPH is cause of ESRD and Hematuria. Phimosis reduced PSA 58 secondary to BPH -started on finasteride and Cipro pre and post-op biopsy for 5 days total (day# 2 today) -start Flomax today, leave Flanagan in for now -f/u with Urol as outpt -continue HD and appreciate Nephrology management-for HD MWF -follow H/H and transfuse with HD if < 8 --> transfused 1 unit today -dc to [facility] when ready--> not yet as want to make sure won't be requiring PRBC transfusions (Nupur West MD)
[2016-11-07] MEDS ORDERED: TAMSULOSIN HCL 0.4 MG CAP PO SCH (21:00)
[2016-11-07] MEDS ORDERED: CIPROFLOXACIN 500 MG TAB PO SCH (21:00)
[2016-11-08] VITALS (11 sets, daily range): BP systolic 86–115; BP diastolic 45–59; PULSE 74–88; TEMP 37–37.5; O2SAT 95–98
[2016-11-08] MEDS: BACITRACIN OINT 15 GM TUBE EXT SCH ×2 (05:40→14:07)
[2016-11-08] MEDS: CALCIUM CARBONATE 500 MG CHEWABLE PO SCH ×3 (05:40→16:52)
[2016-11-08 05:55] LABS: HEMATOCRIT 23.7 % (42-52); MEAN CELL VOLUME 86.5 fL (80-100); MEAN CORPUSCULAR HEMOGLOBIN 29.2 pg (25-34); MEAN CORPUSCULAR HGB CONC 33.8 g/dl (32-36); RED BLOOD COUNT 2.74 M/uL (4.7-6.1); WHITE BLOOD COUNT 2.57 K/uL (4.8-10.8)
[2016-11-08 05:56] LABS: MEAN PLATELET VOLUME 10.9 fL (7.4-10.4); PLATELET COUNT 96 K/uL (130-400)
[2016-11-08 06:43] LABS: BUN/CREATININE RATIO 8.7 (10-20); CREATININE 4.7 mg/dl (0.60-1.40); POTASSIUM 4.2 mmol/L (3.5-5.1)
[2016-11-08] MEDS: NEPHROCAPS PO SCH (08:41)
[2016-11-08] MEDS: PANTOprazole SOD 40 MG TAB PO SCH (08:41)
[2016-11-08] MEDS: FINASTERIDE 5 MG TAB PO SCH (08:41)
[2016-11-08] MEDS: GABAPENTIN 100 MG CAP PO SCH (08:42)
[2016-11-08] MEDS: CALCITRIOL 0.25 MCG CAP PO SCH (08:42)
[2016-11-08] MEDS ORDERED: POLYETHYLENE (MIRALAX) 17 GM PACK PO SCH (09:00)
--- NOTE | 2016-11-08 10:42 | Nephrology Progress Note ---
Nephrology Progress Note Date of Service Nov 08, 2016. Chief Complaint MARY Subjective No acute events overnight. No complaints this morning. Denies shortness of breath. No fevers or chills. Tolerated HD yesterday, net UF 2 kg. Blood transfusion completed with dialysis. Burgos draining clear urine with trace amount of blood. Overall feels well and is anxious to be discharged. Review of Systems A complete review of systems was performed. Pertinent positives are noted above. All other systems are negative. Vital Signs Last 8 Hrs Date Time Temp Pulse Resp B/P Pulse Ox O2 Delivery O2 Flow Rate FiO2 11/08/16 07:15 37.1 77 20 115/59 97 Room Air 11/08/16 04:00 95 Room Air 11/08/16 03:39 37.5 81 18 93/45 95 Room Air I & O 24-Hour Column 11/08/16 07:59 Intake Total 1155 ml Output Total 2737 ml Balance -1582 ml Last Recorded Weight Weight (Kilograms): 101.600 Physical Exam General Appearance: WD/WN, no apparent distress Head: normocephalic, atraumatic Eyes: normal inspection, sclerae normal ENT: normal ENT inspection, pharynx normal Neck: supple, no JVD Respiratory/Chest: lungs clear, no respiratory distress Cardiovascular: regular rate, rhythm, no gallop Abdomen/GI: non tender, soft Genitourinary - Male: + pertinent finding (Burgos draining clear urine with trace evidence of blood) Extremities/Musculoskelatal: normal inspection, no pedal edema Neurologic/Psych: alert, oriented x 3 Family History Patient reports no known family medical history. 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) Laboratory Results Past 24 Hours 11/08/16 05:20 11/08/16 05:20 Test 11/08/16 05:20 Red Blood Count 2.74 M/uL (4.7-6.1) Mean Corpuscular Volume 86.5 fL (80-100) Mean Corpuscular Hemoglobin 29.2 pg (25-34) Mean Corpuscular Hemoglobin Concent 33.8 g/dl (32-36) RDW Standard Deviation 48.2 fL (36.4-46.3) RDW Coefficient of Variation 15.4 % (11.5-14.5) Mean Platelet Volume 10.9 fL (7.4-10.4) Anion Gap 10.0 mmol/L (3-11) Est Creatinine Clear Calc Drug Dose 16.0 ml/min Estimated GFR () 13.1 Estimated GFR (Non- 11.3 BUN/Creatinine Ratio 8.7 (10-20) Calcium Level 7.0 mg/dl (8.5-10.1) Albumin 2.2 gm/dl (3.4-5.0) Allergies Coded Allergies: No Known Allergies (Unverified , 10/29/16) Medications Current Inpatient Medications Medications (Trade) Dose Ordered Sig/Sonia Route Start Time Stop Time Status Last Admin Dose Admin Acetaminophen (Tylenol Tab) 650 mg Q4H PRN PO 10/29/16 16:00 11/28/16 15:59 Ondansetron HCl (Zofran Inj) 4 mg Q6H PRN IV 10/29/16 16:00 11/28/16 15:59 10/31/16 17:39 4 MG Amlodipine Besylate (Norvasc Tab) 10 mg DAILY PO 10/31/16 09:00 11/30/16 08:59 Future Hold Calcitriol (Rocaltrol Cap) 0.5 mcg TuThSa@0900 PO 11/01/16 09:00 12/01/16 08:59 11/08/16 08:42 0.5 MCG Oxycodone/ Acetaminophen (Percocet 5-325mg Tab) FOR MODERATE PAIN ... Q4H PRN PO 10/31/16 08:15 11/14/16 08:14 Vitamin B Complex/ Vit C/Folic Acid (Nephrocaps) 1 cap QAM PO 11/01/16 09:00 12/01/16 08:59 11/08/16 08:41 1 CAP Gabapentin (Neurontin Cap) 100 mg BID PO 11/02/16 21:00 12/02/16 20:59 11/08/16 08:42 100 MG Calcium Carbonate (Tums Chew Tab) 500 mg AC PO 11/03/16 16:15 12/03/16 16:14 11/08/16 05:40 500 MG Bacitracin (Bacitracin Oint) 1 appln Q8 EXT 11/05/16 22:00 12/05/16 21:59 11/08/16 05:40 1 APPLN Finasteride (Proscar Tab) 5 mg QAM PO 11/06/16 09:00 12/06/16 08:59 11/08/16 08:41 5 MG Ciprofloxacin (Cipro Tab) 500 mg QPM PO 11/07/16 21:00 11/10/16 21:01 11/07/16 20:49 500 MG Pantoprazole Sodium (Protonix Tab) 40 mg QAM PO 11/06/16 11:00 12/06/16 10:59 11/08/16 08:41 40 MG Tamsulosin HCl (Flomax Cap) 0.4 mg HS PO 11/07/16 21:00 12/07/16 20:59 11/07/16 20:49 0.4 MG Polyethylene (Miralax Powder Packet) 17 gm DAILY PO 11/08/16 09:00 12/08/16 08:59 11/08/16 08:41 17 GM Ergocalciferol (Vitamin D Cap) 50,000 interunit DAILY PO 11/09/16 09:00 12/09/16 08:59 UNV Impression (1) ESRD needing dialysis (2) Hyperkalemia, diminished renal excretion (3) Metabolic acidosis with increased anion gap and reduced excretion of inorganic acids (4) Secondary hyperparathyroidism of renal origin (5) Anemia (6) Hematuria (7) Vitamin D deficiency Mr. Yung presented to the hospital with 6 month h/o hematuria, progressive weight loss, recent worsening shortness of breath, anorexia nausea. On admission he was found to be anemic with hemoglobin 6.7, renal impairment with creatinine 18 and BUN 192. Renal US showed bilateral severe hydronephrosis with significant cortical atrophy and bladder mass. He has been uremic seems to be for long time as indicated by significant weight loss, anorexia, nausea and generalized weakness. He had not received any medical care in over 10 years. 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 RIJ HD permcath placed 10/31/16. First hemodialysis treatment performed on 10/31/16. Hematuria is improving. Repeat US shows persistent bilateral severe hydronephrosis. Cysto and prostate biopsy performed at the bedside. Ureteral orifices unable to be appreciated. Pathology negative for malignancy. He has been tolerating dialysis well. RIJ HD permcath intact. Outpatient follow up with vascular surgery for AVF has been requested. Recommendations END STAGE RENAL DISEASE: -- Continue HD MWF schedule -- Continue to hold heparin with HD for hematuria -- Protect left arm for AVF. Outpatient follow up for AVF with Dr. Castellano -- Outpatient dialysis in [place], [place] under care of Dr. Carson arranged -- Orders written for continued HD at [facility] BPH / BLADDER MASS / BLADDER STONE / ELEVATED PSA: -- Cysto and prostate biopsy performed by urology 11/05/16 -- Prostate pathology negative for malignancy -- Burgos to gravity -- Prophylactic ciprofloxacin 500 mg daily (administered after dialysis on HD days) ANEMIA/PANCYTOPENIA: -- Cell counts low prior to starting cipro -- Two units PRBC transfused during HD 11/01/16. Additional unit transfused with HD 11/05/16 and 11/07/16. -- Continue Procrit QHD -- Monitor H/H Q Thursday as outpatient -- If cytopenia's persist consider hematology consult as outpatient BONE & MINERAL METABOLISM: -- Patient has elevated PTH. He has been started on calcitriol -- For 25OH vitamin D deficiency D3 added -- Tums one tablet with each male as a phosphate binder
--- NOTE | 2016-11-08 11:26 | Progress Note ---
Subjective Date of Service: Nov 08, 2016. Subjective Pt evaluation today including: conversation w/ patient, physical exam, chart review, lab review pt resting comfortably alonso slight blood tinged urine Problem List Medical Problems: (1) Acidosis Status: Acute (2) Acute renal failure Status: Acute (3) Anemia Status: Acute (4) Hematuria Status: Acute (5) Hypothermia Status: Acute (6) Weakness Status: Acute Objective Vital Signs Date Time Temp Pulse Resp B/P Pulse Ox O2 Delivery O2 Flow Rate FiO2 11/08/16 11:16 78 104/51 11/08/16 11:01 37.1 74 20 86/45 98 Room Air 11/08/16 08:00 97 Room Air 11/08/16 07:15 37.1 77 20 115/59 97 Room Air 11/08/16 04:00 95 Room Air 11/08/16 03:39 37.5 81 18 93/45 95 Room Air 11/08/16 00:00 37.1 88 19 106/56 98 Room Air 11/08/16 00:00 98 Room Air 11/07/16 20:00 36.3 93 20 136/78 98 Room Air 11/07/16 20:00 98 Room Air 11/07/16 16:27 36.7 93 18 113/65 100 Room Air 11/07/16 16:00 Room Air 11/07/16 13:45 36.5 81 105/68 11/07/16 12:45 63 108/63 11/07/16 12:30 66 110/62 11/07/16 12:15 81 112/67 11/07/16 12:00 Room Air 11/07/16 12:00 67 115/61 11/07/16 11:45 78 116/67 11/07/16 11:30 73 120/77 Laboratory Results Last 24 Hours Test 11/08/16 05:20 White Blood Count 2.57 K/uL Red Blood Count 2.74 M/uL Hemoglobin 8.0 g/dL Hematocrit 23.7 % Mean Corpuscular Volume 86.5 fL Mean Corpuscular Hemoglobin 29.2 pg Mean Corpuscular Hemoglobin Concent 33.8 g/dl RDW Standard Deviation 48.2 fL RDW Coefficient of Variation 15.4 % Platelet Count 96 K/uL Mean Platelet Volume 10.9 fL Sodium Level 134 mmol/L Potassium Level 4.2 mmol/L Chloride Level 101 mmol/L Carbon Dioxide Level 23 mmol/L Anion Gap 10.0 mmol/L Blood Urea Nitrogen 41 mg/dl Creatinine 4.70 mg/dl Est Creatinine Clear Calc Drug Dose 16.0 ml/min Estimated GFR () 13.1 Estimated GFR (Non- 11.3 BUN/Creatinine Ratio 8.7 Random Glucose 82 mg/dl Calcium Level 7.0 mg/dl Albumin 2.2 gm/dl Assessment and Plan discussed with Dr. pinto and if pt does not have obvious prostate cancer his renal failure is from presumed MACE and doubt he will void on his own given his prostate size. Would leave alonso in for now and start on longer antibiotic course given acute and chronic prostatitis on bx. Would consider prostate biopsy with ultra sound machine in future if psa does not normalize. Pt not bleeding from urine at rate to explain need for transfusion. Still putting out a liter of urine a day .Have pt f/u as outpt when discharged
[2016-11-08] MEDS ORDERED: TUMS PO (12:41)
[2016-11-08] MEDS ORDERED: CPR500 PO (12:41)
[2016-11-08] MEDS ORDERED: VTMD PO (12:41)
[2016-11-08] MEDS ORDERED: PRS5 PO (12:41)
[2016-11-08] MEDS ORDERED: TYL325X PO (12:41)
[2016-11-08] MEDS ORDERED: FLM4 PO (12:41)
[2016-11-08] MEDS ORDERED: PRT40 PO (12:41)
[2016-11-08] MEDS ORDERED: RCL25 PO (12:41)
[2016-11-08] MEDS ORDERED: NRN100 PO (12:41)
[2016-11-08] MEDS ORDERED: BCTO EXT (12:41)
[2016-11-08] MEDS ORDERED: MRLP17 PO (12:41)
[2016-11-08] MEDS ORDERED: B-COCAP20 PO (12:41)
--- NOTE | 2016-11-08 13:11 | Discharge Instructions ---
Discharge Instructions Admission Reason for Admission: Acute Renal Failure, Anemia Discharge Discharge Diagnosis / Problem: ESRD on hemodialysis, Severe anemia, BPH Discharge Goals Goal(s): Improve disease control, Diagnostic testing, Therapeutic intervention Activity Recommendations Activity Level: Assistance Required Therapies: Physical Therapy, Weight Bearing Status (full), Occupational Therapy Exercise/Sports Limitations: gradually increase as tolerated Shower/Bathe: keep incision dry Protect left arm for AVF placement . Additional Information Patient informed of condition: Yes Advance Directives: No DNR: Yes Level of Care: Acute Rehab Communicable Disease: No Prognosis: Stable Oxygen at (LPM): N/A Burgos Catheter: Yes (Must stay in until seen by Urology in follow up) Instructions / Follow-Up Instructions / Follow-Up 76 y/o male with a history of chronic obstructive uropathy presents with weakness, DUGGAN, lightheadedness, gross hematuria, and severe anemia. 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 Acute renal failure on End stage renal disease-- secondary to chronic obstructive uropathy from BPH -Permcath placed 10/31 -Started dialysis 10/31 but was ended early due to low BP, tolerated full sessions of HD ever since -Nephrology consulted, appreciate recs -plan for HD at [facility] and then transition to [place] for HD as outpatient after discharge-Dr. Carson to follow -Plan for Vascular Dr. Castellano to place left arm AVF as outpatient -Urology management as below -continue calcitriol, TUMS, and Vit D once weekly (Vit D level was 7, Calcium is low at 7.0) -required serial PRBC transfusions during stay and then stabilized at Hgb 8.0 Acute blood loss anemia secondary to hematuria, Anemia of CKD end stage, Pancytopenia--concerning for cancer initially but cystoscopy and prostate biopsy confirm inflammatory cystitis and inflamed prostate causing hematuria. Was transfused total of 6 units PRBCs -Hgb 8.0 on 11/08 Platelets have been in 80s-90s, WBC 2-3--> could be from long standing inflammation but could have bone marrow primary issue - hematuria in Burgos dramatically improved -Vitamin B12 checked, WNL -continue to check CBC once weekly at dialysis, transfuse or give epo as needed -if remains persistently pancytopenic, consider Hematology/Oncology consultation as an outpatient Obstructive uropathy,BPH, inflammatory cystitis, Paraphimosis-prostate biopsy at bedside negative for malignancy, very large obstructing prostate blocking off visualization of ureteral orifices. Repeat renal US essentially unchanged despite Burgos placement so ureteral stents won't help and will only cause nidus for infection, however if UOs not visualized and there is obstruction there, he is at risk for Pyelo in the future--> Urology prefers no stents for now and will watch for infection. PSA was 58. -Urology consulted, appreciate recs: Continue Burgos catheter as unlikely to void on his own. Wash penis with soap and water daily, and ensure foreskin has been pulled back down over the glans. F/u in office and may need repeat US- guided prostate biopsy in future if PSA does not come down. Also consideration for surgical reduction of prostate if deemed surgical candidate in future. -started Finasteride 5 mg PO qd -Started Flomax 0.4 mg PO qd -Cystoscopy and prostate biopsy on 11/[address] Deleon: Paraphimosis, reduced. Prostate inflamed and friable, likely source of bleeding. Recommend Cipro extended course-will do total 14 days Hypomagnesemia--resolved after repletion Peripheral neuropathy -started gabapentin 100 mg PO BID DVT prophylaxis -Chemical prophylaxis contraindicated due to bleeding -TEDS, SCDs Code Status -Level V, DO NOT RESUSCITATE Dispo -PT/OT evaluated recommend acute inpatient rehabilitation. Patient is accepted to [facility] and can be transferred when medically stable. No insurance authorization required. Patient will receive HD on site. Current Hospital Diet Patient's current hospital diet: Renal Diet Discharge Diet Recommended Diet: Renal Diet Procedures Procedures Performed: Insertion of Perm Catheter, Right Internal Jugular Approach, Ultrasound Needle Localization of the Right Internal Jugular Vein, Fluoroscopy for positioning, Moderate Sedation from 0817- 0831 Renal US x 2 Cystoscopy and Prostate biopsy CT abd/pel Venous mapping upper extremity Pending Studies Studies pending at discharge: no Physician Orders On Transfer Special Precautions: Protect left arm for AVF placement Fall risk Dressing Changes: Right Permacath IV Therapy: None Vital Signs: Routine Weigh: Routine Additional Orders: Weekly labs as per Renal Daily cleansing of penis with soap and water, and ensure foreskin has been pulled back down over the glans. Follow up with Urology in 1-2 weeks Follow up with Vascular Surgery as directed by Nephrology for AVF placement/ planning POLST Discussion: Not Applicable Laboratory Results Last 24 Hours Test 11/08/16 05:20 White Blood Count 2.57 K/uL Red Blood Count 2.74 M/uL Hemoglobin 8.0 g/dL Hematocrit 23.7 % Mean Corpuscular Volume 86.5 fL Mean Corpuscular Hemoglobin 29.2 pg Mean Corpuscular Hemoglobin Concent 33.8 g/dl RDW Standard Deviation 48.2 fL RDW Coefficient of Variation 15.4 % Platelet Count 96 K/uL Mean Platelet Volume 10.9 fL Sodium Level 134 mmol/L Potassium Level 4.2 mmol/L Chloride Level 101 mmol/L Carbon Dioxide Level 23 mmol/L Anion Gap 10.0 mmol/L Blood Urea Nitrogen 41 mg/dl Creatinine 4.70 mg/dl Est Creatinine Clear Calc Drug Dose 16.0 ml/min Estimated GFR () 13.1 Estimated GFR (Non- 11.3 BUN/Creatinine Ratio 8.7 Random Glucose 82 mg/dl Calcium Level 7.0 mg/dl Albumin 2.2 gm/dl Medical Emergencies . Who to Call and When: Medical Emergencies: If at any time you feel your situation is an emergency, please call 911 immediately. . Non-Emergent Contact Non-Emergency issues call your: Primary Care Provider, Electrolysis Investigator, Urologist Call Non-Emergent contact if: you have a fever, you have any medication questions . . "Provider Documentation" section prepared by Nupur West. Core Measure Problem Core Measures: None
[2016-11-08] MEDS ORDERED: ERGOCALCIFEROL 50,000 INTER.UNIT CAP PO SCH (14:00)
--- NOTE | 2016-11-08 22:42 | Discharge Summary ---
Discharge Summary Date of Service Nov 08, 2016. Discharge Summary Admission Date: Oct 29, 2016 at 16:03 Discharge Date: Nov 08, 2016 Discharge Disposition: Rehab Principal Diagnosis: ESRD, Bladder outlet obstruction/BPH, Severe anemia Problems/Secondary Diagnoses: Metabolic acidosis Vitamin D deficiency Secondary hyperparathyroidism Hyperkalemia Hypokalemia Acute blood loss anemia secondary to hematuria Anemia of CKD Stage V Pancytopenia Gross hematuria Obstructive uropathy BPH Inflammatory cystitis Paraphimosis Elevated Serum PSA at 58 Hypomagnesemia Peripheral neuropathy Elevated troponin, demand ischemia Procedures: Insertion of Perm Catheter, Right Internal Jugular Approach, Ultrasound Needle Localization of the Right Internal Jugular Vein, Fluoroscopy for positioning, Moderate Sedation from 0817- 0831 Cystoscopy and Prostate biopsy Venous mapping upper extremity Chest xray 10/29/16: No active disease in the chest RENAL ULTRASOUND 10/29/16 HISTORY: renal failure ? Obstructing mass in bladder COMPARISON: None. FINDINGS: Right kidney: 22.3 cm in length. Multiple large cystic areas which appear to communicate suggestive of severe hydronephrosis. This favors a congenital UPJ type obstruction as the ureter does not appear to be dilated. Severe cortical atrophy/thinning. Therefore, this favors chronic hydronephrosis. Left kidney: 23.4 cm in length. Multiple large cystic areas which appear to communicate suggestive of severe hydronephrosis. This favors a congenital UPJ type obstruction as the ureter does not appear to be dilated. Severe cortical atrophy/thinning. Therefore, this favors chronic hydronephrosis. Bladder: A 1.8 cm stone. There is a 4.2 x 3.5 x 3.5 cm masslike area within the bladder. However, this could be due to protrusion of the enlarged prostate gland. IMPRESSION: 1. Multiple large cystic areas within the enlarged kidneys which appear to communicate. Therefore, this favors severe hydronephrosis in the setting of a UPJ type obstruction. There is marked atrophy/thinning of the renal parenchyma suggesting a chronic process. 2. A 4.2 x 3.5 x 3.5 cm masslike area within the bladder. However, this could be due to protrusion of the enlarged prostate gland. Cystoscopy is recommended for further evaluation. 3. A 1.8 cm bladder stone. ABDOMEN AND PELVIS CT WITHOUT CONTRAST FINDINGS: The lung bases are clear. Liver spleen and pancreas appear unremarkable. Gallbladder is negative for distention. Kidneys demonstrate relatively large bilateral renal cysts combine with but appears to be long-standing bilateral hydroureteronephrosis. Both ureters are distended to the juncture with the bladder. There is a large bladder calculus measuring 1.6 cm. A Burgos catheter is in position. Prostate is enlarged. Diameter of the renal pelves and associated parapelvic cysts are 11.3 cm on the right and 11.2 cm on the left. Bowel pattern is nonobstructive. There is no free fluid within the pelvic cul-de-sac. There is moderate bladder wall thickening components of which are related to the collapsed bladder state post Burgos placement. IMPRESSION: 1. Marked bilateral hydroureteronephrosis with superimposed renal cysts bilaterally. 2. Considerable cortical cortical thinning and substance loss of kidneys bilaterally. 3. Ureters are distended to the level of the ureterovesical junction. 4. Moderate bladder wall thickening. Moderate prostate enlargement. 5. All remaining components of the study are unremarkable. ULTRASOUND KIDNEYS AND BLADDER 11/04/16 CLINICAL HISTORY: Hydronephrosis. COMPARISON STUDY: Abdominal CT dated 10/30/2016. Renal ultrasound dated 10/29/2016. TECHNIQUE: Real-time, grayscale, and color flow sonography of the kidneys and bladder is performed. Images are reviewed in the transverse and longitudinal planes. FINDINGS: Kidneys: The kidneys are markedly atrophic. The right kidney measures 14.7 cm in length and the left kidney measures 15.7 cm. Severe bilateral hydroureteronephrosis is unchanged from previous. Debris is again noted within the renal pelvis bilaterally. No shadowing renal calculi are identified. There is no sonographic evidence of contour deforming renal mass lesion. No perinephric fluid is identified. Bladder: The bladder is decompressed around a Burgos catheter. The bladder wall is markedly thickened. A 1.2 cm bladder calculus is identified. Prostatomegaly is observed. IMPRESSION: 1. The kidneys are markedly atrophic and there is severe bilateral hydroureteronephrosis. This has not significant change from 10/29/16. 2. Although decompressed by Burgos catheter, the bladder wall is markedly thickened. 3. A large bladder calculus is identified. ECHO: * 1. Small to low normal left ventricular size with hyperdynamic systolic function. EF > 75%. No regional wall motion abnormalities visualized. Moderate left ventricular hypertrophy. Type 1 diastolic dysfunction. * 2. No significant valvular abnormalities visualized, however valves were not well seen. * 3. Technically difficult study, enhanced with IV Definity. Image quality was poor without IV echo contrast. Consultations: Nephrology Urology Vascular Surgery Medication Reconciliation New Medications: Acetaminophen (Tylenol) 325 Mg Tab 650 MG PO Q4H PRN for Pain or Fever for 30 Days, TAB B-Complex W/ C & Folic Acid (Renal) 1 Cap Cap 1 CAP PO QAM for 30 Days, #30 CAP Bacitracin (Bacitracin Zinc) 45 Appln/15 Gm Oint 1 APPLN EXT Q8 for 30 Days applied to glans penis for paraphimosis Calcitriol (Calcitriol) 0.25 Mcg Cap 0.5 MCG PO TuThSa@0900 for 30 Days, CAP Calcium Carbonate (Tums) 500 Mg Chew 500 MG PO AC for 30 Days Ciprofloxacin (Ciprofloxacin HCl) 500 Mg Tab 500 MG PO QPM for 12 Days, #12 TAB Give after dialysis on HD days Ergocalciferol (Vitamin D) 50,000 Interunit Cap 86235 INTERUNIT PO DAILY for 90 Days, #9 CAP once weekly on Thursday Finasteride (Finasteride) 5 Mg Tab 5 MG PO QAM for 30 Days, #30 TAB Gabapentin (Gabapentin) 100 Mg Cap 100 MG PO BID for 30 Days, CAP Pantoprazole (Pantoprazole Sodium) 40 Mg Tab 40 MG PO QAM for 30 Days, TAB Polyethylene (Miralax) 17 Gm Pow 17 GM PO DAILY for 30 Days Tamsulosin HCl (Tamsulosin HCl) 0.4 Mg Cap 0.4 MG PO HS for 30 Days, CAP Discontinued Medications: [Allbuterol Neb] () 1 DOSE INH TODAY Discharge Exam Pt doing well on day of discharge, minimal blood in urine, ambulating with assistance in halls. Denies chest pain or SOB. Afebrile. No events on telemetry. Review of Systems: Constitutional: No chills, No fever Eyes: No problem reported Respiratory: No shortness of breath Cardiovascular: No chest pain, No edema Abdomen: No constipation, No diarrhea, No nausea, No pain, No vomiting Musculoskeletal: No problem reported Genitourinary - Male: + hematuria Neurologic: + problem reported (pain on tops of feet) Psychiatric: No problem reported Endocrine: No problem reported Hematologic / Lymphatic: No problem reported Integumentary: No problem reported Physical Exam: General Appearance: WD/WN, no apparent distress Eyes: normal inspection, EOMI, sclerae normal ENT: hearing grossly normal, pharynx normal Neck: supple, no adenopathy, trachea midline Respiratory/Chest: lungs clear, normal breath sounds, no respiratory distress, no accessory muscle use Cardiovascular: regular rate, rhythm, no gallop, no murmur, + pertinent finding (trace pitting edema legs bilat) Abdomen / GI: normal bowel sounds, non tender, soft, no organomegaly, no pulsatile mass, + pertinent finding (penis with foreskin reduced and some mild erythema at glans, Burgos in place) Extremities: no calf tenderness Neurologic/Psychiatric: alert, + depressed affect Skin: normal color, warm/dry, no rash, + pertinent finding (Right TIJ catheter in place without surrounding erythema) Lymphatic: no adenopathy Hospital Course 76 y/o male with a history of chronic obstructive uropathy presents with weakness, DUGGAN, lightheadedness, gross hematuria, and severe anemia. 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 Acute renal failure on End stage renal disease, secondary hyperparathyroidism-- secondary to chronic obstructive uropathy from BPH -Permcath placed 10/31 by Vascular Surgery -Started dialysis 10/31 but was ended early due to low BP, tolerated full sessions of HD ever since -Nephrology consulted, appreciate recs -plan for HD at [facility] and then transition to [place] for HD as outpatient after discharge-Dr. Carson to follow -Plan for Vascular Dr. Castellano to place left arm AVF as outpatient -Urology management as below -continue calcitriol, TUMS, and Vit D once weekly (Vit D level was 7) -required serial PRBC transfusions during stay and then stabilized at Hgb 8.0 Acute blood loss anemia secondary to hematuria, Anemia of CKD end stage, Pancytopenia--when combined with imaging of bladder/prostate and clinical picture, this was initially concerning for cancer but cystoscopy and prostate biopsy confirm inflammatory cystitis, negative for cancer-->inflamed prostate causing hematuria. Was transfused total of 6 units PRBCs -Hgb 8.0 on day of discharge Platelets have been in 80s-90s, WBC 2-3--> could be from long standing inflammation but could have bone marrow primary issue - hematuria in Burgos dramatically improved -Vitamin B12 checked, WNL -continue to check CBC once weekly at dialysis, transfuse or give epo as needed -if remains persistently pancytopenic, consider Hematology/Oncology consultation as an outpatient Obstructive uropathy,BPH, inflammatory cystitis, Paraphimosis-prostate biopsy at bedside negative for malignancy, very large obstructing prostate blocking off visualization of ureteral orifices. Repeat renal US essentially unchanged despite Burgos placement so ureteral stents won't help and will only cause nidus for infection, however if UOs not visualized and there is obstruction there, he is at risk for Pyelo in the future--> Urology prefers no stents for now and will watch for infection. PSA was 58. -Urology consulted, appreciate recs: Continue Burgos catheter as unlikely to void on his own. Wash penis with soap and water daily, and ensure foreskin has been pulled back down over the glans. F/u in office and may need repeat US- guided prostate biopsy in future if PSA does not come down. Also consideration for surgical reduction of prostate if deemed surgical candidate in future. -started Finasteride 5 mg PO qd -Started Flomax 0.4 mg PO qd -Cystoscopy and prostate biopsy on 11/[address] Deleon: Paraphimosis, reduced. Prostate inflamed and friable, likely source of bleeding. Recommend Cipro extended course-will do total 14 days Hypomagnesemia, Hyperkalemia, then hypokalemia--resolved after repletion and hemodialysis Peripheral neuropathy-tops of feet -started gabapentin 100 mg PO BID DVT prophylaxis -Chemical prophylaxis contraindicated due to bleeding -TEDS, SCDs Code Status -Level V, DO NOT RESUSCITATE Dispo -PT/OT evaluated recommend acute inpatient rehabilitation. Patient is accepted to [facility] and can be transferred when medically stable. No insurance authorization required. Patient will receive HD on site. Total Time Spent: Greater than 30 minutes This includes examination of the patient, discharge planning, medication reconciliation, and communication with other providers. Discharge Instructions Please refer to the electronic Patient Visit Report (Discharge Instructions) for additional information. Follow-Up Nephrology for hemodialysis on [facility] in 1-2 weeks Check weekly CBC, Renal profile on Mondays Additional Copies To Nicole Carson MD; Fransisco Chanel M.D.
[2016-11-28] MEDS ORDERED: DOCU100C31 PO (16:04)
[2016-11-28] MEDS ORDERED: GABA-112 PO (16:10)
[2016-11-28] MEDS ORDERED: ERGO500037 PO (16:10)
[2016-11-28] MEDS ORDERED: B-CO1CAP17 PO (16:38)
[2016-11-28] MEDS ORDERED: CALC0.2510 PO (16:38)
[2016-11-28] MEDS ORDERED: BACIOIN2 TOP (16:38)
[2016-11-28] MEDS ORDERED: PANT40TA PO (16:38)
[2016-11-28] MEDS ORDERED: ACET325T96 PO (16:38)
[2016-11-28] MEDS ORDERED: FINA5TAB PO (16:38)
[2016-11-28] MEDS ORDERED: NYSTATIN POWDER TOP (16:39)
[2017-02-11] MEDS ORDERED: CIPR1TAB11 PO (13:20)
[2017-02-11] MEDS ORDERED: NYST1OIN9 TOP (13:20)
[2017-02-11] MEDS ORDERED: B-CO1CAP17 PO (13:20)
[2017-02-11] MEDS ORDERED: POLY1POW2 PO (13:20)
[2017-02-27] MEDS ORDERED: OXYC-57 PO (08:30)
[2017-02-27] MEDS ORDERED: CIPR250T3 PO (08:30)
[2017-02-27] MEDS ORDERED: BACI500O11 TOP (08:30)
== END 2016-11-08 19:45 | DRG 693 ==
LOC: ENRESERVDT → ENRESERVTM → C.EDB 13:21 → C.MS2W 16:03 → C.2E 10-31 15:56
PROVIDERS: ADMIT Family Medicine; ATTEND Family Medicine
PROC: 02HV33Z Insertion of Infusion Device into Superior Vena Cava, Percutaneous Approach (ICD-10-PCS; principal; 2016-10-31 08:00)
PROC: 0VNTXZZ Release Prepuce, External Approach (ICD-10-PCS; 2016-11-05)
PROC: 0VB07ZX Excision of Prostate, Via Natural or Artificial Opening, Diagnostic (ICD-10-PCS; 2016-11-05)
PROC: 0TJB8ZZ Inspection of Bladder, Via Natural or Artificial Opening Endoscopic (ICD-10-PCS; 2016-11-05)
DX: N13.8 Other obstructive and reflux uropathy (principal); N18.6 End stage renal disease; E87.2 Acidosis; D62 Acute posthemorrhagic anemia; I12.0 Hypertensive chronic kidney disease with stage 5 chronic kidney disease or end stage renal disease; N17.9 Acute kidney failure, unspecified; N13.30 Unspecified hydronephrosis; N39.0 Urinary tract infection, site not specified; N40.1 Benign prostatic hyperplasia with lower urinary tract symptoms; D63.1 Anemia in chronic kidney disease; R31.9 Hematuria, unspecified; R19.7 Diarrhea, unspecified; E87.5 Hyperkalemia; N47.2 Paraphimosis; R97.20 Elevated prostate specific antigen [PSA]; E55.9 Vitamin D deficiency, unspecified; Z66 Do not resuscitate; Z87.891 Personal history of nicotine dependence

== ENCOUNTER 2017-02-26 12:44 | Inpatient (IN) | payer OTHER ==
[2017-02-11 12:55] VITALS: BMI 33.0
[2017-02-11 13:27] LABS: BASO % 0.9 %; BASO ABS # 0.03 K/uL (0-0.2); EOS % 4.9 %; HEMATOCRIT 29.7 % (42-52); IG% 0.3 %; LYMPH ABS # 1.01 K/uL (1.2-3.4); MEAN CELL VOLUME 101.4 fL (80-100); MEAN CORPUSCULAR HEMOGLOBIN 30.4 pg (25-34); MEAN PLATELET VOLUME 9.2 fL (7.4-10.4); MONO % 6.3 %; NEUT % 58.6 %; PLATELET COUNT 272 K/uL (130-400); RED BLOOD COUNT 2.93 M/uL (4.7-6.1); WHITE BLOOD COUNT 3.48 K/uL (4.8-10.8)
[2017-02-11 13:34] LABS: CALCIUM 8.7 mg/dl (8.5-10.1)
--- NOTE | 2017-02-11 13:41 | PAT Medication Instructions ---
Service Date Feb 11, 2017. Current Home Medication List Acetaminophen Tab (Tylenol), 650 MG PO PRN Bacitracin/Polymyxin B (Polysporin), 1 DOSE TOP PRN Calcitriol (Rocaltrol Cap), 0.5 MCG PO 3XWEEK Calcium Carbonate (Tums), 500 MG PO AC Ciprofloxacin Tab (Cipro), 500 MG PO DAILY Docusate Sodium (Docusate Sodium), 1 CAP PO QAM Ergocalciferol (Vitamin D 29043 Unit), 50,000 UNIT PO WK Finasteride (Proscar), 5 MG PO QAM Gabapentin (Neurontin), 100 MG PO BID Nystatin-Triamcinolone (Nystatin/Triamcinolon... 876672-9.1 Unit/gm-%), 1 DOSE TOP UD PRN for prn Pantoprazole (Protonix), 40 MG PO HS Polyethylene Glycol 3350 (Bulk (Polyethylene Glycol 3350), 17 GM PO HS PRN for constipation Tamsulosin HCl (Tamsulosin HCl), 0.4 MG PO HS Vitamin B Cmplx/Vitc/Folic Ac (Nephrocaps), 1 CAP PO HS Medication Instructions For Your Scheduled Surgery Acetaminophen Tab (Tylenol), 650 MG PO PRN (not taking currently) - Hold the following medications 24 hours prior to surgery: Nystatin-Triamcinolone (Nystatin/Triamcinolon... 155261-4.1 Unit/gm-%), 1 DOSE TOP UD PRN for prn Bacitracin/Polymyxin B (Polysporin), 1 DOSE TOP PRN - Hold the following medications the morning of surgery: Docusate Sodium (Docusate Sodium), 1 CAP PO QAM Ergocalciferol (Vitamin D 72369 Unit), 50,000 UNIT PO WK Calcium Carbonate (Tums), 500 MG PO AC Calcitriol (Rocaltrol Cap), 0.5 MCG PO 3XWEEK - Take the following medications the morning of surgery with a sip of water: Gabapentin (Neurontin), 100 MG PO BID Finasteride (Proscar), 5 MG PO QAM Acetaminophen Tab (Tylenol), 650 MG PO PRN (if needed) - Take the following medications as scheduled the night before surgery: Pantoprazole (Protonix), 40 MG PO HS Polyethylene Glycol 3350 (Bulk (Polyethylene Glycol 3350), 17 GM PO HS PRN for constipation Tamsulosin HCl (Tamsulosin HCl), 0.4 MG PO HS Vitamin B Cmplx/Vitc/Folic Ac (Nephrocaps), 1 CAP PO HS Gabapentin (Neurontin), 100 MG PO BID Calcium Carbonate (Tums), 500 MG PO AC Acetaminophen Tab (Tylenol), 650 MG PO PRN If you have any questions please call us at [phone] or [phone] ( [place]) or [phone]
[2017-02-11 14:08] LABS: COMPLETE YES; POLYCHROMASIA 1+
[2017-02-11 15:13] LABS: URINE APPEARANCE TURBID (CLEAR); URINE BILIRUBIN NEG (NEG); URINE COLOR DK YELLOW; URINE EPITHELIAL CELL AUTO >30 /lpf (0-5); URINE NITRITE NEG (NEG); URINE SPECIFIC GRAVITY 1.015 (1.000-1.030); UROBILINOGEN NEG (NEG)
[2017-02-11 15:21] LABS: BUN/CREATININE RATIO 5.1 (10-20); CREATININE 6.1 mg/dl (0.60-1.40); POTASSIUM 4.1 mmol/L (3.5-5.1)
[2017-02-11 15:26] LABS: MANUAL MICROSCOPIC REQUIRED? NO; REVIEW REQ? YES; SULFASALICYLIC ACID POS (NEG)
[~2017-02-26] VITALS: Ht 175.3 cm; Wt 104.1 kg
[2017-02-26] VITALS (7 sets, daily range): BP systolic 108–154; BP diastolic 66–85; PULSE 81–99; TEMP 36.3–36.4; O2SAT 97–100; Ht 175.3 cm; Wt 104.1 kg
[~2017-02-26 12:44] MED LIST: ATROPINE SULFATE 0.1 MG/ML 5ML SYR IV PRN; B-CO1CAP17 PO; CALC0.2510 PO; CIPROFLOXACIN 200MG / D5W IV SCH; DOCU100C31 PO; ERGO500037 PO; EpHEDrine SULFATE INJ 50 MG/ML AMP IV PRN; FENTANYL CITRATE INJ 50 MCG/1 ML 2 ML VIAL IV PRN; FINA5TAB PO; FLM4 PO; GABA-112 PO; HYDROmorphone INJ 1 MG/ML SYR IV PRN; ONDANSETRON INJ 2 MG/ML 2 ML VIAL IV PRN; PANT40TA PO; SODIUM CHLORIDE 0.9% 1000ML 1,000 ML IV SCH; TUMS PO
[2017-02-26] MEDS ORDERED: PROPOFOL IV EMULSION 10 MG/ML 20 ML VIAL IV ONE (13:20)
[2017-02-26] MEDS ORDERED: FENTANYL CITRATE INJ 50 MCG/1 ML 2 ML VIAL ONE ×3 (13:20→15:29)
[2017-02-26] MEDS ORDERED: LIDOCAINE HCL 2% 2 ML VIAL (20MG/ML) ONE (13:20)
[2017-02-26] MEDS ORDERED: ONDANSETRON INJ 2 MG/ML 2 ML VIAL ONE (13:20)
--- NOTE | 2017-02-26 13:41 | History & Physical Bridge Note ---
H&P Re-Evaluation Bridge Note: I have examined the patient, reviewed the History & Physical and in the interval since the performance of the History & Physical I have noted the following changes of clinical significance: No changes noted
[2017-02-26] MEDS ORDERED: CONRAY 30% 150ML BOTTLE ONE (13:59)
[2017-02-26] MEDS ORDERED: BUPIVACAINE 0.5 % 5 MG/1 ML MPF 30ML VIAL ONE (14:00)
[2017-02-26 14:14] LABS: BUN/CREATININE RATIO 3.1 (10-20); CALCIUM 8.9 mg/dl (8.5-10.1); CREATININE 4.1 mg/dl (0.60-1.40); POTASSIUM 4.1 mmol/L (3.5-5.1)
[2017-02-26] MEDS ORDERED: BACITRACIN OINT 15 GM TUBE ONE ×2 (14:33→16:07)
[2017-02-26] MEDS ORDERED: ACETAMINOPHEN 325 MG TAB PO PRN (16:30)
[2017-02-26] MEDS ORDERED: HYDROCODONE/ACETAMOPHEN 5/325MG TAB PO PRN ×2 (16:30)
[2017-02-26] MEDS ORDERED: ONDANSETRON INJ 2 MG/ML 2 ML VIAL IV PRN (16:30)
[2017-02-26] MEDS ORDERED: BELLADONNA/OPIUM SUPP 60 MG SUPP PR ONE (16:30)
--- NOTE | 2017-02-26 16:40 | [facility] Post Operative Brief Note ---
Immediate Operative Summary Operative Date Feb 26, 2017. Pre-Operative Diagnosis Benign Prostatic Hypertrophy, obstructive uropathy, history of paraphimosis, bladder calculus, renal failure Post-Operative Diagnosis Benign Prostatic Hypertrophy, obstructive uropathy, paraphimosis, bladder calculus, renal failure Procedure(s) Performed Bipolar Transurethral Resection Prostate; Laser Cystolithopaxy of 3 cm stone; Circumcision Surgeon Dr. Damir Deleon Web Developer Programmer Surgeon(s) none Estimated Blood Loss 50 ml Findings Median lobe resected without injury to bladder or UOs, no residual stone or tissue in bladder, excellent hemostasis at circumcision, coronal hypospadias Specimens B: Bladder stones for analysis C: Prostate chips Drains [address] alonso 25 cc in balloon Anesthesia GALMA Complication(s) None Disposition Recovery Room / PACU
[2017-02-26 17:03] LABS: BASO % 0.6 %; BASO ABS # 0.02 K/uL (0-0.2); COMPLETE YES; EOS % 4.8 %; HEMATOCRIT 31.5 % (42-52); LYMPH % 20.5 %; LYMPH ABS # 0.73 K/uL (1.2-3.4); MEAN CELL VOLUME 101.3 fL (80-100); MEAN CORPUSCULAR HEMOGLOBIN 31.8 pg (25-34); MEAN CORPUSCULAR HGB CONC 31.4 g/dl (32-36); MONO % 5.6 %; NEUT % 68.5 %; PLATELET COUNT 165 K/uL (130-400); RED BLOOD COUNT 3.11 M/uL (4.7-6.1); WHITE BLOOD COUNT 3.56 K/uL (4.8-10.8)
--- NOTE | 2017-02-26 17:04 | Anesthesiology Progress Note ---
Anesthesia Post Op Note Date & Time Feb 26, 2017 at 17:04 Vital Signs Pain Intensity: 0 Vital Signs Past 12 Hours Date Time Temp Pulse Resp B/P (MAP) Pulse Ox O2 Delivery O2 Flow Rate FiO2 02/26/17 16:50 36.2 94 14 107/64 100 Nasal Cannula 2 02/26/17 16:40 96 14 114/63 100 Mask 10 02/26/17 16:30 100 14 119/65 100 Mask 10 02/26/17 16:22 36.5 111 14 108/66 99 Mask 10 02/26/17 13:19 36.3 99 20 154/84 97 Room Air Notes Mental Status: alert / awake / arousable, participated in evaluation Pt Amnestic to Procedure: Yes Nausea / Vomiting: adequately controlled Pain: adequately controlled Airway Patency, RR, SpO2: stable & adequate BP & HR: stable & adequate Hydration State: stable & adequate Anesthetic Complications: no major complications apparent
[2017-02-26 17:29] LABS: BUN/CREATININE RATIO 3.3 (10-20); CALCIUM 8.4 mg/dl (8.5-10.1); CREATININE 4.2 mg/dl (0.60-1.40); POTASSIUM 4.4 mmol/L (3.5-5.1)
[2017-02-26] MEDS: SODIUM CHLORIDE 0.9% 1000ML 1,000 ML IV SCH (17:35)
--- NOTE | 2017-02-26 19:56 | Medical Consult ---
Consultation Date of Consultation: Feb 26, 2017. Attending Physician: Damir Deleon MD, Urology Reason for Consultation: ESRD History of Present Illness 77M with a PMHx of dialysis on T/T/S presenting for Transurethral resection of prostate and phimosis correction. Pt tolerated the procedure well. Is not on any pain medication post operatively and is not in any pain. Pt ate his dinner. Pt has a alonso draining red urine. Surgery was performed by Dr. Deleon. Pt anticipates that he will go home tomorrow. Pt has dialysis scheduled for Thursday. PMHx: Pt denies any significant medical condition, denies needing to use a BIPAP or CPAP at night. SHx: Lives by himself, denies smoking. ROS: No chest pain, no SOB, no dyspnea on exertion, no palpitations, no fevers, no chills, no nausea, no vomiting, no diarrhea, no abdominal pain, no rash. Past Medical/Surgical History Medical Problems: (1) Acidosis Status: Acute (2) Acute renal failure Status: Acute (3) Anemia Status: Acute (4) Hematuria Status: Acute (5) Hypothermia Status: Acute (6) Weakness Status: Acute Family History Patient reports no known family medical history. Social History Smoking Status: Former Smoker Marital Status: single Housing Status: lives with family Occupation Status: retired Allergies Coded Allergies: No Known Allergies (Unverified , 02/26/17) Current Inpatient Medications Current Inpatient Medications Medications (Trade) Dose Ordered Sig/Sonia Route Start Time Stop Time Status Last Admin Dose Admin Sodium Chloride 1,000 ml @ 15 mls/hr Q24H IV 02/26/17 06:00 02/27/17 05:59 02/26/17 13:20 15 MLS/HR Sodium Chloride 1,000 ml @ 50 mls/hr Q20H IV 02/26/17 16:23 03/28/17 16:22 02/26/17 17:35 50 MLS/HR Acetaminophen (Tylenol Tab) 650 mg Q6H PRN PO 02/26/17 16:30 03/28/17 16:29 Acetaminophen/ Hydrocodone Bitart ([place] 5/325 Tab) 1 tab Q4H PRN PO 02/26/17 16:30 03/12/17 16:29 Acetaminophen/ Hydrocodone Bitart ([place] 5/325 Tab) 2 tab Q4H PRN PO 02/26/17 16:30 03/12/17 16:29 Ondansetron HCl (Zofran Inj) 4 mg Q6H PRN IV 02/26/17 16:30 03/28/17 16:29 Docusate Sodium (coLACE CAP) 100 mg BID PO 02/26/17 21:00 03/28/17 20:59 Calcitriol (Rocaltrol Cap) 0.5 mcg DAILY PO 02/27/17 09:00 03/29/17 08:59 Calcium Carbonate (Tums Chew Tab) 500 mg AC PO 02/27/17 08:00 03/29/17 07:59 Finasteride (Proscar Tab) 5 mg QAM PO 02/27/17 09:00 03/29/17 08:59 Gabapentin (Neurontin Cap) 100 mg BID PO 02/26/17 21:00 03/28/17 20:59 Pantoprazole Sodium (Protonix Tab) 40 mg HS PO 02/26/17 21:00 03/28/17 20:59 Tamsulosin HCl (Flomax Cap) 0.4 mg HS PO 02/26/17 21:00 03/28/17 20:59 Vitamin B Complex/ Vit C/Folic Acid (Nephrocaps) 1 cap DAILY PO 02/27/17 09:00 03/29/17 08:59 Bacitracin (Bacitracin Oint) 1 appln Q8 EXT 02/26/17 22:00 03/28/17 21:59 Ciprofloxacin (Ciprofloxacin Tab) 250 mg Q12H PO 02/26/17 22:00 02/27/17 21:59 Review of Systems Constitutional: No fever, No chills Respiratory: No cough, No sputum, No wheezing, No shortness of breath, No dyspnea on exertion Physical Exam Date Time Temp Pulse Resp B/P (MAP) Pulse Ox O2 Delivery O2 Flow Rate FiO2 02/26/17 19:04 36.4 84 16 126/75 (92) 100 Nasal Cannula 2.0 02/26/17 18:15 36.4 91 16 131/83 (99) 98 Nasal Cannula 2.0 02/26/17 17:46 36.3 82 16 108/66 (80) 98 Nasal Cannula 2.0 02/26/17 16:50 36.2 94 14 107/64 100 Nasal Cannula 2 02/26/17 16:40 96 14 114/63 100 Mask 10 02/26/17 16:30 100 14 119/65 100 Mask 10 02/26/17 16:22 36.5 111 14 108/66 99 Mask 10 02/26/17 13:19 36.3 99 20 154/84 97 Room Air General Appearance: WD/WN, no apparent distress, + pertinent finding (resting comfortably in chair) Eyes: PERRL, EOMI Respiratory/Chest: chest non-tender, lungs clear, normal breath sounds, no respiratory distress, no accessory muscle use Cardiovascular: regular rate, rhythm, no edema, no gallop, no JVD, no murmur Abdomen/GI: normal bowel sounds, non tender, soft Back: no CVA tenderness Extremities/Musculoskelatal: normal inspection, no calf tenderness, normal capillary refill, no pedal edema Neurologic/Psych: echo vasc tech II-XII nml as tested, no motor/sensory deficits, alert, normal mood/affect, normal reflexes, oriented x 3 Skin: no rash Laboratory Results Last 24 Hours Test 02/26/17 13:30 02/26/17 16:53 Sodium Level 137 mmol/L 138 mmol/L Potassium Level 4.1 mmol/L 4.4 mmol/L Chloride Level 100 mmol/L 102 mmol/L Carbon Dioxide Level 28 mmol/L 26 mmol/L Anion Gap 9.0 mmol/L 10.0 mmol/L Blood Urea Nitrogen 13 mg/dl 14 mg/dl Creatinine 4.10 mg/dl 4.20 mg/dl Est Creatinine Clear Calc Drug Dose 18.2 ml/min 17.8 ml/min Estimated GFR () 15.3 14.9 Estimated GFR (Non- 13.2 12.8 BUN/Creatinine Ratio 3.1 3.3 Random Glucose 83 mg/dl 106 mg/dl Calcium Level 8.9 mg/dl 8.4 mg/dl White Blood Count 3.56 K/uL Red Blood Count 3.11 M/uL Hemoglobin 9.9 g/dL Hematocrit 31.5 % Mean Corpuscular Volume 101.3 fL Mean Corpuscular Hemoglobin 31.8 pg Mean Corpuscular Hemoglobin Concent 31.4 g/dl Platelet Count 165 K/uL Mean Platelet Volume 9.0 fL Neutrophils (%) (Auto) 68.5 % Lymphocytes (%) (Auto) 20.5 % Monocytes (%) (Auto) 5.6 % Eosinophils (%) (Auto) 4.8 % Basophils (%) (Auto) 0.6 % Neutrophils # (Auto) 2.44 K/uL Lymphocytes # (Auto) 0.73 K/uL Monocytes # (Auto) 0.20 K/uL Eosinophils # (Auto) 0.17 K/uL Basophils # (Auto) 0.02 K/uL RDW Standard Deviation 56.9 fL RDW Coefficient of Variation 15.8 % Immature Granulocyte % (Auto) 0.0 % Immature Granulocyte # (Auto) 0.00 K/uL Chemistry Specimen Hemolysis Assessment & Plan 77M with a PMHx of ESRD p/w surgical correction of BPH and phimosis. Pt tolerated procedure well. ESRD - Creatinine 4.2. On dialysis since November. - Pt is a known dialysis patient and sees with Dr. Isabela Rivera, [facility] [place] nephrology. - Pt has dialysis , and Thu. Had dialysis earlier today and is scheduled for dialysis on Thursday. - Pt will keep his dialysis appointment. - c/w NSS 50mls/hr. - c/w Calcitriol 3days per week , per home regiment. s/p TURP and circumcision. - Alonso draining red urine. - c/w Tamsulosin and follow up with PCP. Neuropathy -Continue Gabapentin and follow up with PCP. GERD - c/w PPI and follow up with PCP. DVT Proph: AC contraindicated due to active post surgical bleed, pt is low risk , he is sitting in his chair. If he stays one more day I recommend SCDs or low dose Heparin SQ. Code: Full I personally and independently interviewed and examined the patient I reviewed labs and imaging I agree with above mentioned physical exam, History and ROS I discussed and formulated the assessment and plan with Mrs. Thompson 77 M with a PMHx of ESRD p/w surgical correction of BPH and phimosis. normal ROS is as above PE obese, not in acute distress chest, normal air entry B/L, heart S1/S2 normal abd soft ND NT ext B/L no edema assessment: ESRD due to dialysis on Thursday S/P Circumcision, laser cystolitholapaxy of 3 cm bladder stone, bipolar transurethral resection and button vaporization of the prostate gland. Plan: continue supportive care pain control DVT prophylaxis as per primary team can be discharged from the medical aspect will sign off please call us with any questions Kaushik Byrnes [facility] Hospitalist Resident Involvement: Resident Care Provided Care Provided: Adult Hospital Medicine
--- NOTE | 2017-02-26 20:23 | OPERATIVE REPORT ---
DATE OF OPERATION: 02/26/2017 PREOPERATIVE DIAGNOSIS: Benign prostatic hypertrophy, history of obstructive uropathy and end-stage renal disease, bladder calculus and paraphimosis. POSTOPERATIVE DIAGNOSIS: Same. PROCEDURE: Circumcision, laser cystolitholapaxy of 3 cm bladder stone, bipolar transurethral resection and button vaporization of the prostate gland. SURGEON: Dr. Daimr Deleon. TITLE I DIRECTOR: None. ANESTHESIA: General anesthesia with laryngeal mask. COMPLICATIONS: None. ESTIMATED BLOOD LOSS: 50 mL SPECIMENS SENT TO PATHOLOGY: Foreskin, bladder stones for analysis and prostate chips. DRAINS LEFT IN PLACE: Include a 24-Surinamese, 3-way Burgos catheter with 25 mL of sterile water in the balloon to continue his bladder irrigation. COMPLICATIONS: None. FINDINGS: Large intravesical median lobe resected, flushed with the trigone without injury to the bladder or the ureteral orifices, no residual stones or prostate tissue within the bladder after completion, excellent hemostasis for circumcision with coronal hypospadias. BRIEF HISTORY: Mr. Yung is a 77-year-old male, who was seen in our practice in the past for history of elevated PSA, urinary retention, end-stage renal disease, paraphimosis and bladder calculus. Please see H&P and prior hospitalization notes for further details. The patient has been seen as an outpatient and continues to have difficulties with both his voiding as well as an inability to place Burgos catheters in the acute setting. The bladder stone is also present and the patient's history of paraphimosis is noted. He is therefore here today for surgical correction of these various urologic problems. Intravenous ciprofloxacin 200 mg was provided for antibiotic coverage and SCDs used for DVT prophylaxis. Informed consent reviewed on the chart preoperatively today. PROCEDURE: The patient was properly identified and brought to the operative suite. After identification of appropriate consent on the chart, general anesthesia with laryngeal mask was initiated and the patient was prepped and draped in standard fashion for this procedure. second time worker-out procedure was followed. After marking proximal and distal ends of the foreskin, circumferential incisions were made in the sleeve technique for circumcision. This was divided at the 12 o'clock position using Bovie cautery and Metzenbaum scissors. The foreskin was removed from the penile shaft. This was sent for pathologic analysis. Excellent hemostasis was obtained using Bovie cautery where necessary and using 3-0 Vicryl at the cardinal points and the interrupted 3-0 chromic suture in between. The skin was reapproximated. Good cosmesis was appreciated with excellent hemostasis. The coronal hypospadias was noted. Bacitracin ointment was placed on the incision. Attention was then turned to the endoscopic portion of the case. A 26-Surinamese resectoscope was introduced into the bladder under direct visualization using a visual obturator. As being noted on office cystoscopy, significant lateral lobe hypertrophy as well as a gargantuan median lobe protruding into the bladder and obstructing the urethra was appreciated. However, by navigating lateral to the median lobe, the patient's 3 cm bladder stone was able to be visualized and encountered. Seeing that it was directly accessible and due to concern over the possibility of bleeding at the time of TURP later, this was able to be directly addressed. Three different laser fibers were required to fragment the stone sufficiently to allow for passage and flushing of the stone. The laser was set at a dusting settings and a 200, 400 and 600 micron fiber respectively were used to fragment the stone and flushed the fragments free. Larger fragments were sent for chemical analysis via the pathology department. After this was completed, significant edema and erythema of the bladder was appreciated. A bipolar loop was placed and the median lobe was resected until flushed with the trigone. Thankfully, after a significant portion of the median lobe was resected, the interureteric ridge was able to be identified, followed by the ureters which were well removed from the plane of dissection. After the median lobe was completely resected, the proximal aspect of the lateral lobes were also resected. The prostate fragments were irrigated free from the bladder as necessary over the course of the case. After sufficient resection had taken place, a bipolar button was used to continue the vaporization of the lateral lobes and median lobe and obtained a circumferential hemostasis as necessary. The prostatic urethra was significantly improved and visually unobstructed, especially seeing the patient's large median lobe after completion of the case. Excellent hemostasis was appreciated. Bladder was carefully surveyed and noted to be free of any residual stone, fragments or tissue. Significant inflammation of the posterior bladder was noted, but not felt to be suspicious for malignancy. Bladder was partially distended and resectoscope was removed. A 24-Surinamese 3-way Burgos catheter was placed over a catheter guide with 25 mL of sterile water in the balloon and return of clear irrigant. Catheter was placed to continuous bladder irrigation. Bacitracin, Xeroform, Kerlix and Coban dressing were placed over the site of circumcision. The anesthesia was reversed. The patient was transferred to recovery room in stable condition. FOLLOWUP CARE: Seeing the patient's numerous comorbidities, I will observe him overnight. Per the nephrology service, alteration to his hemodialysis schedule should not be required and he will be next due for hemodialysis on Thursday having received it today prior to surgery. I will advance to a renal diet and request a hospitalist consultation to assist with the patient's inpatient care. Anticipate trial of void and discharge home tomorrow depending on the patient's urine appearance and findings, cover with a renal dose of ciprofloxacin while the patient is inpatient. I attest to the content of the Intraoperative Record and any orders documented therein. Any exceptions are noted below. MTDD
[2017-02-26] MEDS: GABAPENTIN 100 MG CAP PO SCH (20:44)
[2017-02-26] MEDS: CIPROFLOXACIN 250 MG TAB PO SCH (20:45)
[2017-02-26] MEDS: BACITRACIN OINT 15 GM TUBE EXT SCH (20:45)
[2017-02-26] MEDS ORDERED: TAMSULOSIN HCL 0.4 MG CAP PO SCH (21:00)
[2017-02-26] MEDS ORDERED: PANTOprazole SOD 40 MG TAB PO SCH (21:00)
[2017-02-26] MEDS: DOCUSATE SODIUM 100 MG CAP PO SCH (21:00)
[2017-02-27 03:09] VITALS: BP 127/73; PULSE 79; TEMP 36.5; O2SAT 99
[2017-02-27] MEDS: BACITRACIN OINT 15 GM TUBE EXT SCH ×2 (06:31→13:34)
[2017-02-27 07:32] LABS: BASO % 0.5 %; BASO ABS # 0.02 K/uL (0-0.2); COMPLETE YES; EOS % 3.8 %; HEMATOCRIT 32.7 % (42-52); IG% 0.2 %; LYMPH % 13.2 %; LYMPH ABS # 0.55 K/uL (1.2-3.4); MEAN CELL VOLUME 101.9 fL (80-100); MEAN CORPUSCULAR HEMOGLOBIN 30.2 pg (25-34); MEAN CORPUSCULAR HGB CONC 29.7 g/dl (32-36); MEAN PLATELET VOLUME 9.4 fL (7.4-10.4); MONO % 8.2 %; NEUT % 74.1 %; PLATELET COUNT 161 K/uL (130-400); RED BLOOD COUNT 3.21 M/uL (4.7-6.1); WHITE BLOOD COUNT 4.17 K/uL (4.8-10.8)
[2017-02-27 07:54] VITALS: BP 119/71; PULSE 67; TEMP 36.5; O2SAT 95
[2017-02-27] MEDS ORDERED: BACI500O11 TOP (08:30)
[2017-02-27] MEDS ORDERED: CIPR250T3 PO (08:30)
[2017-02-27] MEDS ORDERED: OXYC-57 PO (08:30)
[2017-02-27 08:31] LABS: BUN/CREATININE RATIO 4.1 (10-20); CALCIUM 8.3 mg/dl (8.5-10.1); CREATININE 5.6 mg/dl (0.60-1.40); POTASSIUM 4.8 mmol/L (3.5-5.1)
--- NOTE | 2017-02-27 08:32 | Discharge Instructions ---
Discharge Instructions Date of Service Feb 27, 2017. Admission Reason for Admission: Retention Bladder Stone; Phimosis Discharge Discharge Diagnosis / Problem: Retention, phimosis s/p circ, TURP and cystolithopaxy Discharge Goals Goal(s): Decrease discomfort, Improve function, Improve disease control, Therapeutic intervention Activity Recommendations Activity Limitations: per Instructions/Follow-up section Lifting Limitations: no more than 25 pounds, gradually increase as tolerated ( x 1 week) Exercise/Sports Limitations: rest today, gradually increase as tolerated (x 1 week) May Resume Sexual Activity: after follow-up appointment Shower/Bathe: no limitations . Instructions / Follow-Up Instructions / Follow-Up Follow up in office March 11 at 3 PM Current Hospital Diet Hospital Diet(s): Renal Diet Discharge Diet Recommended Diet: Renal Diet (good fluid intake) Procedures Procedures Performed: Bipolar Transurethral Resection Prostate; Laser Cystolithopaxy of 3 cm stone; Circumcision Pending Studies Studies pending at discharge: yes List of pending studies: Pathology Medical Emergencies . Who to Call and When: Medical Emergencies: If at any time you feel your situation is an emergency, please call 911 immediately. . Non-Emergent Contact Non-Emergency issues call your: Urologist Call Non-Emergent contact if: you have a fever, temperature is above 101, your pain is not controlled, your pain is worsening, your pain is unusual for you, your pain is concerning you, wound has increased drainage, wound has increased redness, wound has increased pain, you have any medication questions . . "Provider Documentation" section prepared by Damir Deleon. . VTE Core Measure Inpt VTE Proph given/why not?: SCD's [place] Drug Monitoring Program Search Results: patient reviewed within database, no issues identified
--- NOTE | 2017-02-27 08:36 | Progress Note ---
Subjective Date of Service: Feb 27, 2017. Subjective Pt evaluation today including: conversation w/ patient, physical exam, chart review, lab review, review of inpatient medication list Pain: Denies PO Intake: Lizeth reg diet Voiding: alonso catheter in place (slow CBI with very light pink urine, no clots ) 77 yo male POD#1 s/p TURP, cystolithopaxy and circ. He notes he was OOBTC, low activity level at baseline. Pending dialysis tomorrow, medical consult reviewed. He denies difficulties overnight, remains stable in anemia, Cr rising as expected seen ESRD. Intraop findings reviewed. Problem List Medical Problems: (1) Acidosis Status: Acute (2) Acute renal failure Status: Acute (3) Anemia Status: Acute (4) Hematuria Status: Acute (5) Hypothermia Status: Acute (6) Weakness Status: Acute Review of Systems Constitutional: No fever, No chills Eyes: No worsening of vision ENT: No hearing loss Respiratory: No wheezing, No shortness of breath Cardiac: No chest pain Abdomen: No nausea, No vomiting Male : + see HPI, + hematuria Neurologic: No weakness, No numbness/tingling Psychiatric: No depression symptoms, No anxiety Heme: No swollen lymph nodes Skin: No rash Objective Vital Signs Date Time Temp Pulse Resp B/P (MAP) Pulse Ox O2 Delivery O2 Flow Rate FiO2 02/27/17 07:54 36.5 67 16 119/71 (87) 95 Room Air 02/27/17 07:20 Room Air 02/27/17 03:09 36.5 79 16 127/73 (91) 99 Room Air 02/26/17 23:42 98 Room Air 02/26/17 23:23 36.4 84 17 150/85 (106) 98 Nasal Cannula 2.0 02/26/17 20:03 36.3 81 16 115/71 (86) 99 Nasal Cannula 2.0 02/26/17 19:04 36.4 84 16 126/75 (92) 100 Nasal Cannula 2.0 02/26/17 18:15 36.4 91 16 131/83 (99) 98 Nasal Cannula 2.0 02/26/17 17:46 36.3 82 16 108/66 (80) 98 Nasal Cannula 2.0 02/26/17 17:15 Room Air 2.0 02/26/17 17:15 Nasal Cannula 2.0 02/26/17 16:50 36.2 94 14 107/64 100 Nasal Cannula 2 02/26/17 16:40 96 14 114/63 100 Mask 10 02/26/17 16:30 100 14 119/65 100 Mask 10 02/26/17 16:22 36.5 111 14 108/66 99 Mask 10 02/26/17 13:19 36.3 99 20 154/84 97 Room Air Physical Exam General Appearance: no apparent distress, + obese ENT: hearing grossly normal Neck: supple, no adenopathy Respiratory/Chest: no respiratory distress, no accessory muscle use Cardiovascular: no JVD Abdomen: non tender, soft Extremities: non-tender Neurologic/Psychiatric: alert Comments: Circ incision c/d/i, sutures intact, + bacitracin on incision Laboratory Results Last 24 Hours Test 02/26/17 13:30 02/26/17 16:53 02/27/17 07:00 Sodium Level 137 mmol/L 138 mmol/L 137 mmol/L Potassium Level 4.1 mmol/L 4.4 mmol/L 4.8 mmol/L Chloride Level 100 mmol/L 102 mmol/L 101 mmol/L Carbon Dioxide Level 28 mmol/L 26 mmol/L 26 mmol/L Anion Gap 9.0 mmol/L 10.0 mmol/L 10.0 mmol/L Blood Urea Nitrogen 13 mg/dl 14 mg/dl Creatinine 4.10 mg/dl 4.20 mg/dl 5.60 mg/dl Est Creatinine Clear Calc Drug Dose 18.2 ml/min 17.8 ml/min 13.3 ml/min Estimated GFR () 15.3 14.9 10.5 Estimated GFR (Non- 13.2 12.8 9.1 BUN/Creatinine Ratio 3.1 3.3 4.1 Random Glucose 83 mg/dl 106 mg/dl 91 mg/dl Calcium Level 8.9 mg/dl 8.4 mg/dl 8.3 mg/dl White Blood Count 3.56 K/uL 4.17 K/uL Red Blood Count 3.11 M/uL 3.21 M/uL Hemoglobin 9.9 g/dL 9.7 g/dL Hematocrit 31.5 % 32.7 % Mean Corpuscular Volume 101.3 fL 101.9 fL Mean Corpuscular Hemoglobin 31.8 pg 30.2 pg Mean Corpuscular Hemoglobin Concent 31.4 g/dl 29.7 g/dl Platelet Count 165 K/uL 161 K/uL Mean Platelet Volume 9.0 fL 9.4 fL Neutrophils (%) (Auto) 68.5 % 74.1 % Lymphocytes (%) (Auto) 20.5 % 13.2 % Monocytes (%) (Auto) 5.6 % 8.2 % Eosinophils (%) (Auto) 4.8 % 3.8 % Basophils (%) (Auto) 0.6 % 0.5 % Neutrophils # (Auto) 2.44 K/uL 3.09 K/uL Lymphocytes # (Auto) 0.73 K/uL 0.55 K/uL Monocytes # (Auto) 0.20 K/uL 0.34 K/uL Eosinophils # (Auto) 0.17 K/uL 0.16 K/uL Basophils # (Auto) 0.02 K/uL 0.02 K/uL RDW Standard Deviation 56.9 fL 57.2 fL RDW Coefficient of Variation 15.8 % 15.7 % Immature Granulocyte % (Auto) 0.0 % 0.2 % Immature Granulocyte # (Auto) 0.00 K/uL 0.01 K/uL Chemistry Specimen Hemolysis Assessment and Plan A/P 77 yo male POD#1 s/p circ, TURP and cystolithopaxy Trial of void - minimal hematuria on slow CBI. Dialysis tomorrow per nephrology Postop limits reviewed. Outpatient follow-up as planned. Discharge planning: home
--- NOTE | 2017-02-27 08:44 | Anesthesiology Progress Note ---
Anesthesia Post Op Note Date & Time Feb 27, 2017 at 08:43 Vital Signs Pain Intensity: 0.0 Vital Signs Past 12 Hours Date Time Temp Pulse Resp B/P (MAP) Pulse Ox O2 Delivery O2 Flow Rate FiO2 02/27/17 07:54 36.5 67 16 119/71 (87) 95 Room Air 02/27/17 07:20 Room Air 02/27/17 03:09 36.5 79 16 127/73 (91) 99 Room Air 02/26/17 23:42 98 Room Air 02/26/17 23:23 36.4 84 17 150/85 (106) 98 Nasal Cannula 2.0 Notes Mental Status: alert / awake / arousable, participated in evaluation Pt Amnestic to Procedure: Yes Nausea / Vomiting: adequately controlled Pain: adequately controlled Airway Patency, RR, SpO2: stable & adequate BP & HR: stable & adequate Hydration State: stable & adequate Anesthetic Complications: no major complications apparent
[2017-02-27] MEDS: CALCIUM CARBONATE 500 MG CHEWABLE PO SCH ×2 (08:47→11:52)
[2017-02-27] MEDS: DOCUSATE SODIUM 100 MG CAP PO SCH (08:48)
[2017-02-27] MEDS: GABAPENTIN 100 MG CAP PO SCH (08:49)
[2017-02-27] MEDS ORDERED: FINASTERIDE 5 MG TAB PO SCH (09:00)
[2017-02-27] MEDS ORDERED: CALCITRIOL 0.25 MCG CAP PO SCH (09:00)
[2017-02-27] MEDS ORDERED: NEPHROCAPS PO SCH (09:00)
[2017-02-27] MEDS: CIPROFLOXACIN 250 MG TAB PO SCH (10:32)
[2017-02-27] MEDS: SODIUM CHLORIDE 0.9% 1000ML 1,000 ML IV SCH (11:54)
[2017-02-27] MEDS: ERYTHROMYCIN OP OINT 5 MG/GM 3.5 GM TUBE OPL SCH ×2 (13:49→13:54)
[2017-02-27 13:57] VITALS: BP 119/71; PULSE 67; TEMP 36.5; O2SAT 95
--- NOTE | 2017-03-13 15:15 | Discharge Summary ---
Discharge Summary Date of Service Mar 13, 2017. Discharge Summary Date of admission: 02/26/17 Date of discharge: 02/27/17 Admitting diagnosis - renal failure, BPH, retention, bladder stone. Discharge diagnosis - same Admitting attending - Dr. Bettye Deleon Complications - none Interventions - TURP, cystolithopaxy on Feb 26, 2017 Brief history - 77 yo male with a history of ESRD, retention, renal failure being admitted for TURP and cystolithopaxy. Please see H&P for further details. Hospital Course - Patient admitted after surgery as planned. Please see OP note for further details. Hospitalist consult requested to assist with medical management. Had received dialysis prior to OR, did not need over course of admission. Kept alonso overnight, diet and activity rapidly advanced, underwent trial of void successfully after overnight CBI POD#1. Voided, was nicky PO diet, ambulatory, comfortable on oral meds - considered stable for DC home. DC instructions - see medication sheet and DC instructions. Outpatient appointments confirmed. Patient to contact us with any difficulties after discharge.
== END 2017-02-27 17:10 | disposition home or self-care (01) | DRG 713 ==
LOC: C.ACU 12:44 → C.MSN 14:00 → ENRESERV 16:40
PROVIDERS: ADMIT Urology; ATTEND Urology
PROC: 0VT08ZZ Resection of Prostate, Via Natural or Artificial Opening Endoscopic (ICD-10-PCS; principal; 2017-02-26 13:40)
PROC: 0VTTXZZ Resection of Prepuce, External Approach (ICD-10-PCS; principal; 2017-02-26 13:40)
PROC: 0TCB8ZZ Extirpation of Matter from Bladder, Via Natural or Artificial Opening Endoscopic (ICD-10-PCS; principal; 2017-02-26 13:40)
DX: N40.1 Benign prostatic hyperplasia with lower urinary tract symptoms (principal); N21.0 Calculus in bladder; N18.6 End stage renal disease; E87.2 Acidosis; N17.9 Acute kidney failure, unspecified; Q54.0 Hypospadias, balanic; N13.9 Obstructive and reflux uropathy, unspecified; N47.2 Paraphimosis; R33.9 Retention of urine, unspecified; D63.8 Anemia in other chronic diseases classified elsewhere; K59.00 Constipation, unspecified; R97.20 Elevated prostate specific antigen [PSA]; Z83.3 Family history of diabetes mellitus; E55.9 Vitamin D deficiency, unspecified; Z87.891 Personal history of nicotine dependence; Z99.2 Dependence on renal dialysis

== ENCOUNTER → 2017-03-11 | Outpatient (CLI) | payer OTHER ==
[~2017-03-11] MED LIST changes: -ATROPINE SULFATE 0.1 MG/ML 5ML SYR IV PRN; +CIPR250T3 PO; -CIPROFLOXACIN 200MG / D5W IV SCH; -EpHEDrine SULFATE INJ 50 MG/ML AMP IV PRN; -FENTANYL CITRATE INJ 50 MCG/1 ML 2 ML VIAL IV PRN; -HYDROmorphone INJ 1 MG/ML SYR IV PRN; -ONDANSETRON INJ 2 MG/ML 2 ML VIAL IV PRN; +OXYC-57 PO; -SODIUM CHLORIDE 0.9% 1000ML 1,000 ML IV SCH
== END | disposition home or self-care (01) ==
LOC: C.LABSPEC 11:07
PROVIDERS: ATTEND Urology
DX: R33.8 Other retention of urine (principal)